=== PATIENT | female | born 1960 | race Caucasian/White ===

== ENCOUNTER 2024-11-22 11:10 | Day surgery (SDC) | payer OTHER, SELFPAY ==
--- OUTSIDE RECORDS SUMMARY | 2024-11-19 13:28 | XMS_ITS | Patient Health Record ---
Author Organization [facility] Address [address] [place] [address] Care Team Providers Care Field Scout Name Role Phone Jennifer Peraza N.P Primary Care Provider Unavail able Michael Shoemaker Unavailable [phone] ALLERGIES No Known Allergies REASON FOR REFERRAL Referring Provider First Name Jennifer Referring Provider Last Name Karmen Referred Organization [facility] Referred Provider Michael Shoemaker Referred Address [address],[place], [place],[address], Referred Provider Specialty Gastroentero logy Referral Priority Routine MEDICATIONS Medication SIG (Take, Route, Frequency, Duration) Notes Start Date End Date Status MiraLax (colon prep) 17 GM/SCOOP 1 238Gm bottle mixed with Gatorade or Crystal Light Orally begin at 5:00 p.m. the day before the procedure for 1 day 11/03/2024 Active Dulcolax (colon prep) 5 MG take at 3:00 p.m and 7:00p.m. Orally two tablets twice a day for one day for 1 day 11/03/2024 Active hydroCHLOROthiazide 25 MG 1 tablet in th e morning Orally Once a day for 30 day(s) Active Simvastatin 40 MG 1/2 tablet in the evening Orally Once a day Active Multivitamin Adult A ctive SOCIAL HISTORY Tobacco Use: Social History Observation Description Date Details (start date - stop date) Never Smoker NA - NA Sex Assigned At : Social History Observation Description Sex Assigned At Unknown Tobacco Use/Smoking Question Answer Notes Patient is a nonsmoker Alcohol Screen Question Answer Notes Did you have a drink contain ing alcohol in the past year? Yes How often did you have a dri nk containing alcohol in the past year? Never (0 point) How many drinks did you have on a typical day when you were drinking in the past year? 1 or 2 drinks (0 point) How often did you have 6 or more drinks on one occasion in the past year? Never (0 point) Points 0 Interpretation Negative PROBLEMS Problem Type ICD Code Onset Dates Problem Status W/U Status Risk SNOMED Code Notes Problem Colon cancer screening (Z12.11) Active confirmed Colon cancer screening (380301006) Problem Encounter for other preprocedural examination (Z01.818) Active confirmed Pre-procedure evaluation check (261380325) VITAL SIGNS Blood pressure diastolic 00 mm Hg 08/30/2024 Height 5 ft 7 in in 08/30/2024 Blood pressure systolic 00 mm Hg 08/30/2024 Weight 195 lbs 08/30/2024 BMI 30.54 kg/m2 08/30/2024 Encounters Encounter Location Date Provider Diagnosis [facility] [address] [place] [phone] 08/30/2024 Michael Shoemaker Colon cancer screeni ng Z12.11 and Encounter for other preprocedural examination Z01.818 [facility] [address] [place] [phone] 08/30/2024 Michael Shoemaker ASSESSMENTS Encounter Date Diagnosis Assessment Notes Treatment Notes Treatment Clinical Notes 08/30/2024 Colon cancer screening (ICD-10 - Z12.11) Do not use the Hydrochlorothiaizde the day before nor on the morning of the colonoscopy 08/30/2024 Encounter for other preprocedural examination (ICD-10 - Z01.818) PLAN OF TREATMENT Future Test Test Name Order Date COLONOSCOPY 08/30/2024 Next Appt Details Provider Name:Michael Shoemaker , 11/22/2024 01:00:00 PM, [address] [place] [address] , [place], [place], [id number], Insurance Providers Payer Name Payer Address Payer Phone Subscriber Number Group Number Insured Name Patient Relationship to Insured Coverage Start Date Coverage End Date [facility] [employer] [address] [place] [address] [id number] LEXUS DASILVA Self - patient is the insured MEDICAL (GENERAL) HISTORY Medical History History ICD Code Hypertension Negative colonoscopy in her early 50's [facility] Denies [place],DM,CVA,Lung disease,renal dise ase Hyperlipidemia Surgical History Surgery Date(Month/Year) Broken elbow
--- OUTSIDE RECORDS SUMMARY | 2024-11-19 13:28 | XMS_ITS | Encounter Summary ---
Author Name [facility] Organization [facility] Address [address] [place] [address] Care Team Providers Care Rotary Engine Assembler Name Role Phone CHELA BELL Primary Care Provider Unavailabl e Selected Encounter This section includes the information on record at [facility] for the Encounter. Date/Time Encounter Type Encounter Description Reason Provider Source Aug 14, 2024 11:21 AM FIT SPECTACLES MONOFOCAL OPTOMETRY ICD-10-CM Z46.0 Encounter for fit/adjst of spectacles and contact lenses MAGGIE SHAW Jcarlos Encounter Template Text not used by [facility] Assessments - Encounter Diagnoses This section includes the primary and secondary diagnoses documented for the Encounter. Date/Time Primary/Secondary Diagnosis Diagnosis Name Provider Source Aug 14, 2024 11:21 AM PRIMARY Encounter for fit/adjst of spectacles and contact lenses MERCEDES DIAZ [facility] Plan of Treatment: Future Appointments (+ 6 months) and Future Tests (+/- 45 days) The Plan of Treatment section includes future care activities for the patient from all [place] treatmentfacilities. This section includes future appointments and future orders which are active, pending or scheduled. Future Appointments This section includes appointments that were scheduled to occur 6 months from the date of the Encounter, up to a maximum of 20 appointments. The data comes from all [place] treatment facilities. Appointment Date/Time Appointment Type Appointme nt Facility Name Aug 30, 2024 01:15 PM AMBULATORY - NONE [facility] Oct 16, 2024 03:00 PM AMBULATORY - MEDICINE [facility] Lab Results: +/- 30 days of the encounter This section includes the Chemistry and Hematology Lab Results on record with [facility] for the patient. Radiology Reports and Pathology Reports are provided separately, in subsequent sections. Lab Results This section contains the Chemistry/Hematology Results that were resulted 30 days before or 30 daysafter the date of the Encounter. Date/Time Source Result Type Result - Unit Interpretation Reference Range Comment Jul 17, 2024 10:00 AM [facility]ION 1 RESPIRATORY Specimen Type: SERUM Comment: ! ! ! CONV! ! ! ! CONV! !Allergen Name ! kU/L !CLASS!NOTE !Allergen Name ! kU/L !CLASS!NOTE !D. pteronyssinus (d1). . . . . . . . . ! <0.10 ! 0 ! !D. pteronyssinus (d1). . . . . . . . . ! <0.10 ! 0 ! !Dermatophagoide s farinae (d2) IgE. . . ! <0.10 ! 0 ! !Dermatophagoide s farinae (d2) IgE. . . ! <0.10 ! 0 ! !Cat Dander (e1) IgE w/rfl. . . . . . . ! <0.10 ! 0 ! !Cat Dander (e1) IgE w/rfl. . . . . . . ! <0.10 ! 0 ! !Dog Dander (e5) IgE w/rfl. . . . . . . ! <0.10 ! 0 ! !Dog Dander (e5) IgE w/rfl. . . . . . . ! <0.10 ! 0 ! !Mouse Urine Proteins (e72) IgE . . . . ! <0.10 ! 0 ! !Mouse Urine Proteins (e72) IgE . . . . ! <0.10 ! 0 ! !Bermuda Grass (g2) IgE . . . . . . . . ! <0.10 ! 0 ! ![place]erm[place] Grass (g2) IgE . . . . . . . . ! <0.10 ! 0 ! !Curtis Grass (g6) IgE . . . . . . . . ! <0.10 ! 0 ! !Curtis Grass (g6) IgE . . . . . . . . ! <0.10 ! 0 ! !Cockroach (i6) IgE . . . . . . . . . . ! <0.10 ! 0 ! !Cockroach (i6) IgE . . . . . . . . . . ! <0.10 ! 0 ! !Penicillium notatum (m1) IgE . . . . . ! <0.10 ! 0 ! !Penicillium notatum (m1) IgE . . . . . ! <0.10 ! 0 ! !Cladosporium herbarum (m2) IgE . . . . ! <0.10 ! 0 ! !Cladosporium herbarum (m2) IgE . . . . ! <0.10 ! 0 ! !Aspergillus fumigatus (m3) IgE . . . . ! <0.10 ! 0 ! !Aspergillus fumigatus (m3) IgE . . . . ! <0.10 ! 0 ! !Alternaria alternata (m6) IgE. . . . . ! <0.10 ! 0 ! !Alternaria alternata (m6) IgE. . . . . ! <0.10 ! 0 ! !Maple ([place]) (t1) IgE . . . . . . ! <0.10 ! 0 ! !Maple ([place]) (t1) IgE . . . . . . ! <0.10 ! 0 ! !Birch (t3) IgE . . . . . . . . . . . . ! <0.10 ! 0 ! !Birch (t3) IgE . . . . . . . . . . . . ! <0.10 ! 0 ! !Mountain [place] (t6) IgE. . . . . . . . ! <0.10 ! 0 ! !Mountain [place] (t6) IgE. . . . . . . . ! <0.10 ! 0 ! !Filley (t7) IgE . . . . . . . . . . . . . ! <0.10 ! 0 ! !Filley (t7) IgE . . . . . . . . . . . . . ! <0.10 ! 0 ! !Elm (t8) IgE . . . . . . . . . . . . . ! <0.10 ! 0 ! !Elm (t8) IgE . . . . . . . . . . . . . ! <0.10 ! 0 ! ![place] Tree (t10) IgE. . . . . . . . . ! <0.10 ! 0 ! ![place] Tree (t10) IgE. . . . . . . . . ! <0.10 ! 0 ! ![place] (t11) IgE . . . . . . . . . . ! <0.10 ! 0 ! ![place] (t11) IgE . . . . . . . . . . ! <0.10 ! 0 ! ![place] (t14) IgE . . . . . . . . . ! <0.10 ! 0 ! ![place]ia (t14) IgE . . . . . . . . . ! <0.10 ! 0 ! !White Jer (t15) IgE. . . . . . . . . . ! <0.10 ! 0 ! ![place] Jer (t15) IgE. . . . . . . . . . ! <0.10 ! 0 ! ![place] (t70) IgE . . . . . . . ! <0.10 ! 0 ! ![place] (t70) IgE . . . . . . . ! <0.10 ! 0 ! !Common Ragweed (Short) (w1) IgE. . . . ! <0.10 ! 0 ! !Common Ragweed (Short) (w1) IgE. . . . ! <0.10 ! 0 ! !Mugwort (w6) IgE . . . . . . . . . . . ! <0.10 ! 0 ! !Mugwort (w6) IgE . . . . . . . . . . . ! <0.10 ! 0 ! !Rough Pigweed (w14) IgE. . . . . . . . ! <0.10 ! 0 ! !Rough Pigweed (w14) IgE. . . . . . . . ! <0.10 ! 0 ! ![place]ep [place] (w18) IgE . . . . . . . . ! <0.10 ! 0 ! !Sheep [place] (w18) IgE . . . . . . . . ! <0.10 ! 0 ! IMMUNOGLOBULIN E 4 kU/L <=114 IMMUNOGLOBULIN E 4 kU/L <=114 INTERPRETATION INTERPRETATION SPECIFIC LEVEL OF ALLERGEN SPECIFIC LEVEL OF ALLERGEN IgE CLASS kU/L SPECIFIC IgE ANTIBODY IgE CLASS kU/L SPECIFIC IgE ANTIBODY --------- --------- ----- --------- --------- ----- 0 <0.10 Absent/Undetecta ble 0 <0.10 Absent/Undetecta ble 0/1 0.10-0.34 Very Low Level 0/1 0.10-0.34 Very Low Level 1 0.35-0.69 Low Level 1 0.35-0.69 Low Level 2 0.70-3.49 Moderate Level 2 0.70-3.49 Moderate Level 3 3.50-17.4 High Level 3 3.50-17.4 High Level 4 17.5-49.9 Very High Level 4 17.5-49.9 Very High Level 5 50-100 Very High Level 5 50-100 Very High Level 6 >100 Very High Level 6 >100 Very High Level The clinical relevance of allergen results of The clinical relevance of allergen results of 0.10-0.34 kU/L are undetermined and intended for 0.10-0.34 kU/L are undetermined and intended for specialist use. specialist use. Allergens denoted with a include results using Allergens denoted with a include results using one or more analyte specific reagents. In those one or more analyte specific reagents. In those cases, the test was developed and its analytical cases, the test was developed and its analytical performance characteristics have been determined performance characteristics have been determined by [facility]. It has not been cleared or by [facility]. It has not been cleared or approved by the U.S. Food and Drug Administration. approved by the U.S. Food and Drug Administration. The FDA has determined that such clearance or The FDA has determined that such clearance or approval is not necessary. This assay has been approval is not necessary. This assay has been validated pursuant to the CLIA regulations and is validated pursuant to the CLIA regulations and is used for clinical purposes. used for clinical purposes. Test Performed by [facility], Test Performed by [facility], [facility], [facility], [address] [place] [address] [place] [address] Moncho Singh M.D., Ph.D., Director of Laboratories Moncho Singh M.D., Ph.D., Director of Laboratories , CLIA [id number] , CLIA [id number] TEST PERFORMED AT: TEST PERFORMED AT: , , Ordering Provider: JESSICA GOLDSTEIN Report Released Date/Time: Jul 17, 2024 09:47 AM Reporting Lab: [facility] [address] [address] Performing Lab: [facility] [place] [facility] [address] [facility], [address] [facility] [address] IgE, Serum SEE NOTE Social History: Smoking Status (Most current) and Tobacco Use (All prior to encounter date) This section includes the most current, and the historical, smoking and tobacco- related health factors from the [facility] facility where the Encounter took place. Current Smoking Status This section includes the most current smoking, or tobacco-related health factor, from the [facility] facility where the Encounter took place. Date/Time Current Smoking Status Comment Facil ity Nov 23, 2023 12:07 PM VA-TOBACCO FORMER USER [facility] [place] [facility] Tobacco Use History This section includes a history of the smoking, or tobacco-related health factors, that were collected on or before the date of the Encounter. The data comes from the [place] facility where the Encounter took place. Date/Time Smoking Status/Tobacco Use Comment F acility Nov 23, 2023 12:07 PM VA-TOBACCO QUIT 15 YRS OR MORE [facility] [place] [facility] Jul 13, 2022 10:30 AM VA-TOBACCO NEVER USED [facility] [place] [facility] Jun 09, 2021 11:00 AM VA-TOBACCO NEVER USED [facility] [place] [facility] Feb 20, 2020 03:16 PM VA-TOBACCO NEVER USED [facility] [place] [facility] Feb 11, 2019 10:08 AM VA-TOBACCO NEVER USED [facility] [place] [facility] March 07, 2018 09:17 AM LIFETIME NON-TOBACCO USER [facility] [place] [facility] Jun 01, 2016 10:04 AM LIFETIME NON-TOBACCO USER [facility] [place] [facility] Jun 12, 2012 10:28 AM LIFETIME NON-TOBACCO USER [facility] [place] [facility] Encounter Notes: All associated encounter notes This section contains the clinical notes associated to the Encounter. 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 Please verify prior to the creation of a purchase order. LEXUS DASILVA [id number] RX INFORMATION OD -2.75 0.00 X Add:0.00 Pzm:0.00 Dir: Prz2:0.00 Dir2: OS -3.25 -0.25 X160 Add:0.00 Pzm:0.00 Dir: Prz2:0.00 Dir2: FITTING INFORMATION FPD:60 NPD:57 Mccracken:R: L: SEG HT:R: L: Tint:None Shade:None [facility] Billable Items FRAME: SOTERO BRANTLEYMETAL 50-20-145 Right Lens: POLY SINGLE VISION 1.586 POLY Left Lens: POLY SINGLE VISION 1.586 POLY CLIN items 0001 - Single Vision - Glass Plastic Poly /sundeep/ BHARGAVI ANTONIO Grain Merchandiser Signed: 08/14/2024 11:27 Receipt Acknowledged By: 08/14/2024 11:31 /sundeep/ Mercedes Diaz [facility] Health Lab Technician 08/14/2024 ADDENDUM STATUS: COMPLETED PDS Grain Merchandiser fit patient with 1 pair(s) of sv eyeglasses on 08/14/2024. OPT HT entered consult(s) as requested for provider signature. /sundeep/ Mercedes Diaz [facility] Health Lab Technician Signed: 08/14/2024 11:32 BHARGAVI ANTONIO [facility]
--- OUTSIDE RECORDS SUMMARY | 2024-11-19 13:28 | XMS_ITS | Encounter Summary ---
Author Name [facility] [facility] [place] Address [address] [place] [address] Care Team Providers Care Supervisor Calibration Name Role Phone CHELA BELL Primary Care Provider Unavailabl e Selected Encounter This section includes the information on record at [place] for the Encounter. Date/Time Encounter Type Encounter Description Reason Provider Source Aug 14, 2024 10:00 AM OFFICE O/P EST MOD 30 MIN OPTOMETRY ICD-10-CM H25.13 Age-related nuclear cataract, bilateral VALERIAMAGGIE TORREZ Jcarlos Encounter Template Text not used by [place] Assessments - Encounter Diagnoses This section includes the primary and secondary diagnoses documented for the Encounter. Date/Time Primary/Secondary Diagnosis Diagnosis Name Provider Source Aug 15, 2024 10:26 AM PRIMARY Age-related nuclear cataract, bilateral [facility] Aug 15, 2024 10:26 AM SECONDARY Dry eye syndrome of bilateral lacrimal glands COUNTS INCLUDE 234 BEDS AT [facility] Aug 15, 2024 10:26 AM SECONDARY Presbyopia COUNTS INCLUDE 234 BEDS AT [facility] Aug 15, 2024 10:26 AM SECONDARY Unspecified visual disturbance COUNTS INCLUDE 234 BEDS AT [facility] Plan of Treatment: Future Appointments (+ 6 months) and Future Tests (+/- 45 days) The Plan of Treatment section includes future care activities for the patient from all [facility] treatment[facility]. This section includes future appointments and future orders which are active, pending or scheduled. Future Appointments This section includes appointments that were scheduled to occur 6 months from the date of the Encounter, up to a maximum of 20 appointments. The data comes from all [place] treatment facilities. Appointment Date/Time Appointment Type Appointme nt Facility Name Aug 30, 2024 01:15 PM AMBULATORY - NONE [place] [facility] Oct 16, 2024 03:00 PM [facility] [facility] Lab Results: +/- 30 days of the encounter This section includes the Chemistry and Hematology Lab Results on record with [place] for the patient. Radiology Reports and Pathology Reports are provided separately, in subsequent sections. Lab Results This section contains the Chemistry/Hematology Results that were resulted 30 days before or 30 daysafter the date of the Encounter. Date/Time Source Result Type Result - Unit Interpretation Reference Range Comment Jul 17, 2024 10:00 [facility] ALLERGY PROFILE, REGION 1 RESPIRATORY [...] . ! <0.10 ! 0 ! !Maple ([place]) (t1) IgE . . . . . . ! <0.10 ! 0 ! !Maple [place] (t1) IgE . . . . . . ! <0.10 ! 0 ! !Birch (t3) IgE . . . . . . . . . . . . ! <0.10 ! 0 ! !Birch (t3) IgE . . . . . . . . . . . . ! <0.10 ! 0 ! ![place]ountain [place] (t6) IgE. . . . . . . . ! <0.10 ! 0 ! ![place] (t6) IgE. . . . . . . . ! <0.10 ! 0 ! ![place] (t7) IgE . . . . . . . . . . . . . ! <0.10 ! 0 ! ![place] (t7) IgE . . . . . . . . . . . . . ! <0.10 ! 0 ! !Elm (t8) IgE . . . . . . . . . . . . . ! <0.10 ! 0 ! !Elm (t8) IgE . . . . . . . . . . . . . ! <0.10 ! 0 ! ![place] (t10) IgE. . . . . . . . . ! <0.10 ! 0 ! ![place] (t10) IgE. . . . . . . . . ! <0.10 ! 0 ! ![place] (t11) IgE . . . . . . . . . . ! <0.10 ! 0 ! ![place] (t11) IgE . . . . . . . . . . ! <0.10 ! 0 ! ![place] (t14) IgE . . . . . . . . . ! <0.10 ! 0 ! ![place] (t14) IgE . . . . . . . . . ! <0.10 ! 0 ! ![place] (t15) IgE. . . . . . . . . . ! <0.10 ! 0 ! ![place] (t15) IgE. . . . . . . . . . ! <0.10 ! 0 ! ![place] (t70) IgE . . . . . . . ! <0.10 ! 0 ! ![place] (t70) IgE . . . . . [...] . ! <0.10 ! 0 ! !Sheep [employer] (w18) IgE . . . . . . . . ! <0.10 ! 0 ! !Sheep [employer] (w18) IgE . . . . . [...] determined performance characteristics have been determined by [facility]. It has not been cleared or by [facility]. It has not been cleared or approved [...] used for clinical purposes. Test Performed by [facility], Test Performed by [facility], [place], [place], [address] [place] [address] [place], [place] Moncho Singh M.D., Ph.D., Director of Laboratories Moncho Singh M.D., Ph.D., Director of Laboratories , CLIA [id number] , CLIA [id number] TEST PERFORMED AT: TEST PERFORMED AT: , , Ordering Provider: JESSICA GOLDSTEIN Report Released Date/Time: Jul 17, 2024 09:47 AM Reporting Lab: [facility] [address] [facility] [id number] Performing Lab: [facility] [address] [address] IgE, Serum SEE NOTE Encounter Notes: All associated encounter notes This section contains the clinical notes associated to the Encounter. Date/Time Encounter Note(s) Provider Source Aug 14, 2024 09:33 AM OPTOMETRY NOTE: LOCAL TITLE: OPTOMETRY NOTE STANDARD TITLE: OPTOMETRY NOTE DATE OF NOTE: AUG 14, 2024@09:33 ENTRY DATE: AUG 14, 2024@09:33:48 AUTHOR: BELTRAN MESA COSIGNER: MAGGIE SHAW URGENCY: STATUS: COMPLETED OPTOMETRY NOTE Has ADDENDA Active problems - Computerized Problem List is the source for the followin. Rhinitis 2. Hypertension 3. Obesity 4. Hyperlipidemia 5. Bereavement Active Outpatient Medications (including Supplies): Active Outpatient Medications Status 1) FLUTICASONE PROP 50MCG 120D NASAL INHL INSTILL 2 ACTIVE SPRAYS INTO EACH NOSTRIL ONCE DAILY FOR NASAL IRRITATION/INFLAMMATION 2) HYDROCHLOROTHIAZIDE 25MG TAB TAKE ONE TABLET BY MOUTH ACTIVE ONCE DAILY TO PREVENT FLUID/CONTROL BLOOD PRESSURE 3) LORATADINE 10MG TAB TAKE ONE TABLET BY MOUTH ONCE ACTIVE DAILY FOR ALLERGY FOR ALLERGY 4) OMEPRAZOLE 20MG EC CAP TAKE ONE CAPSULE BY MOUTH ACTIVE EVERY MORNING 30 MINUTES BEFORE BREAKFAST FOR GASTROESOPHAGEAL REFLUX DISEASE 5) SIMVASTATIN 40MG TAB TAKE ONE-HALF TABLET BY MOUTH AT ACTIVE BEDTIME FOR CHOLESTEROL Active Non-VA Medications Status 1) Non-VA MULTIVITAMIN/MINERALS CAP/TAB 1 TABLET BY ACTIVE MOUTH ONCE DAILY 6 Total Medications Allergies: Patient has answered NKA All medications including those prescribed by outside VA's, community providers, and all OTC meds were reviewed and reconciled with patient to the best of their abilities. +++++++++++++++++++++++++++++ ++++++++++++++++ Med list review: Y Discrepancies: N List provided pt: N +++++++++++++++++++++++++++++ ++++++++++++++++ ------ Discussed with patient that the examination would be performed by an Optometry graphotype operator in his/her final year. Explained that the exam would be overseen by a fully credentialled and licensed dry chain offbearer. (x) Pt expressed understanding and agreed to proceed () Pt declined to be examined by graphotype operator (AC) ------ This 64 year old FEMALE is seen today for CEE Chief Complaint: Lost glasses a few months ago. Is currently wearing older pair of glasses. No other complaints. Ocular Hx: LISANDRO: Aug 2021 1. Hx of migraine with aura 2. Myopia/Presbyopia OU 3. Mild nuclear sclerotic cataracts Ou - Previous Surgery: none - (-) Pain - (-) Diplopia - (-) Flashes - (+) Floaters, longstanding - (-) Eye Injury/Trauma - FOHx: (-) Glaucoma/ARMD/Blindness Ocular Meds: None Medical, personal, and social history are all reviewed and is contributory or is not contributory to today's visit. Vision cc: OD:20/25+1 OS:20/20 Pupils: ERRL-No APD EOMS: Full, no restrictions CVF: FTFC OU Habitual: OD: -2.75 SPH OS: -3.25 -0.25 x 160 Add: +2.25 Subjective OD: -2.75 SPH 20/25+1 OS: -3.25 -0.25 x 160 20/20 Add: +2.25 20/20 OU Intraocular Pressure TYPE GAT, Time: 10:27am OD: 17mmHg OS: 17mmHg Ant segment: Lids: Tr MGD OU Conj: White/quiet OU Cornea: Clear OU AC: Open and quiet OU, 1:1 N&T OU Iris: Flat OU Lens: 1+ NS OU Fundus exam: Dilated: with 1% Tropicamide OU-warning given C/D: OD 0.35r pink & healthy OS 0.40r pink & healthy Macula: Flat and clear OU Vessels: Normal Caliber OU Vit: Syneresis OU, PVD OD Periph: Flat and clear OU Additional Testing: OCT Macula completed to assess diagnosis: Unspecified visual disturbance OD. Findings as follows: OD: Beronica thickness: 244, Volume: 10.4 Thickness Avg 288. Quality: 9/10 Normal foveal contour with intact PIL, few hard drusen, (-) SRF OS: [place] thickness: 263, Volume: 9.9 Thickness Avg 276. Quality: 10/10 Normal foveal contour with intact PIL, few hard drusen, (-) SRF REPORT: Good quality scan, stable to baseline in 2017. Monitor yearly. Assessment and Plan: 1. Hx of migraine with aura - Pt ed - Pt states has not had ocular migraine in years - Not currently followed by neuro - Monitor 2. Mild nuclear sclerotic cataracts OU - Pt ed - Not visually significant at this time, symmetrical between each eye - Monitor 3. Dry eye syndrome OU - BCVA 20/25 OD, 20/20 OS - Asymptomatic - Could be causing decreased vision OD - Discussed AT, deferred treatment today and stated she would not use the drops if mailed to her - Advised pt to RTC sooner if she notices decreased vision OD - Monitor yearly 4. Unspecified visual disturbance OD - Mild decreased vision, 20/25 - Patient had not noticed reduction in vision OD - Cataracts and dry eye signs symmetrical between eyes - Mac OCT: Normal foveal contour, (-) SRF - Most likely due to dryness, monitor yearly or sooner if vision decreases further 5. Myopia/Presbyopia OU - Pt ed - Minor change, ordered new DVO - Monitor Return to Clinic: 1 year for CEE *Pt advised to contact clinic or return sooner for changes as needed. Total time spent: 32 minutes Education: The exam findings and plan were explained to the patient and the patient agrees. The patient's questions have been answered. *> Discussed signs of retinal detachment. Reviewed with patient the signs and symptoms of a retinal detachment such as appearance of flashes of light in the periphery of one eye or the other, a sudden increase or change in floaters and a curtain affect or absence of vision that appears to cover or progress over the side, superior or inferior visual field of one eye or the other. Patient advised to the office immediately if any of these symptoms are noticed as they can signify a serious retinal problem that needs prompt treatment to prevent vision loss or blindness. *> Discussed cataract. A cataract is a cloudiness in the normally clear lens of the eye which can interfere with normal vision. Most cataracts develop in people over age 55, but they occasionally occur in infants and young children. Usually cataracts develop in both eyes, but one may be worse than the other. If the lens is clouded by a cataract, light is scattered so the light can no longer focus it properly, causing vision problems. Symptoms of a cataract may include: Blurred or hazy vision, Increased sensitivity to glare from lights, particularly when driving at night and Increased difficulty seeing at night. There is no treatment to prevent or slow cataract progression. In age-related cataracts, changes in vision can be very gradual. Some people may not initially recognize the visual changes. However, as cataracts worsen, vision symptoms increase. > Discussed dry eye or ocular surface disease. Dry eye is a disease, an ocular surface disease and is a medical condition. Ocular surface disease is a snf chronic disorder that if left untreated can only worsen, and cannot be cured, only managed. The disease may be caused by either a low functional lacrimal gland, lack of tears, or due to a chronic inflammation of the ocular surface. Treatment of dry eye involves determining which or both may the underlying cause. Therapy is ongoing and compliance is cade. Individual treatment steps recommended by your doctor may include regular use of artificial tears, nutritional supplements, lid hygiene, punctal plugs, oral medications such as doxycycline and prescription topical drops such as Restasis. A treatment plan is individually tailored for every patient by the doctor and compliance and regular follow up is cade. Barriers to Education: None. Patient is alert and oriented x 3. /sundeep/ MAGGIE SHAW OD ANIMAL RESCUER Signed: 08/14/2024 21:37 for BELTRAN MESA OPTOMETRY STUDENT /sundeep/ MAGGIE SHAW OD ANIMAL RESCUER Cosigned: 08/14/2024 21:37 08/14/2024 ADDENDUM STATUS: COMPLETED I saw this patient in conjunction with the student and agree to the stated findings and plan after reviewing both the history and repeating cade elements of the physical exam. /sundeep/ MAGGIE SHAW OD ANIMAL RESCUER Signed: 08/14/2024 21:37 MAGGIE SHAW [facility]
--- OUTSIDE RECORDS SUMMARY | 2024-11-19 13:28 | XMS_ITS | Encounter Summary ---
Author Name [facility] [place] Address [address] [place] [address] Care Team Providers Care Credit Collections Manager Name Role Phone CHELA BELL Primary Care Provider Unavailabl e Selected Encounter This section includes the information on record at [place] for the Encounter. Date/Time Encounter Type Encounter Description Reason Provider Source Aug 14, 2024 11:00 AM CPTR OPHTH DX IMG POST SEGMT OPTOMETRY ICD-10-CM H53.9 Unspecified visual disturbance MAGGIE SHAW Jcarlos Encounter Template Text not used by [place] Assessments - Encounter Diagnoses This section includes the primary and secondary diagnoses documented for the Encounter. Date/Time Primary/Secondary Diagnosis Diagnosis Name Provider Source Aug 29, 2024 03:09 PM PRIMARY Unspecified visual disturbance MAGGIE SHAW [facility] Plan of Treatment: Future Appointments (+ 6 months) and Future Tests (+/- 45 days) The Plan of Treatment section includes future care activities for the patient from all [place] treatmentfacilities. This section includes future appointments and future orders which are active, pending or scheduled. Future Appointments This section includes appointments that were scheduled to occur 6 months from the date of the Encounter, up to a maximum of 20 appointments. The data comes from all [place] treatment facilities. Appointment Date/Time Appointment Type Appointme nt Facility Name Aug 30, 2024 01:15 PM AMBULATORY - NONE [place] [facility] [place] [facility] Oct 16, 2024 03:00 PM AMBULATORY - MEDICINE CT C NTRL WSN [facility] Lab Results: +/- 30 days of [...] Range Comment Jul 17, 2024 10:[address] CNT WSTRN [facility] ALLERGY PROFILE, REGION 1 RESPIRATORY Specimen [...] . ! <0.10 ! 0 ! !Maple ([place]) (t1) IgE . . . . . . ! <0.10 ! 0 ! !Maple ([place]) (t1) IgE . . . . . . ! <0.10 ! 0 ! !Birch (t3) IgE . . . . . . . . . . . . ! <0.10 ! 0 ! !Birch (t3) IgE . . . . . . . . . . . . ! <0.10 ! 0 ! ![place] (t6) IgE. . . . . . . . ! <0.10 ! 0 ! ![place] (t6) IgE. . . . . . . . ! <0.10 ! 0 ! ![place] (t7) IgE . . . . . . . . . . . . . ! <0.10 ! 0 ! ![place] (t7) IgE . . . . . . . . . . . . . ! <0.10 ! 0 ! !Elm (t8) IgE . . . . . . . . . . . . . ! <0.10 ! 0 ! ![place]m (t8) IgE . . . . . . . . . . . . . ! <0.10 ! 0 ! ![place] (t10) IgE. . . . . . . . . ! <0.10 ! 0 ! ![place] (t10) IgE. . . . . . . . . ! <0.10 ! 0 ! ![place] (t11) IgE . . . . . . . . . . ! <0.10 ! 0 ! ![place] (t11) IgE . . . . . . . . . . ! <0.10 ! 0 ! ![place] (t14) IgE . . . . . . . . . ! <0.10 ! 0 ! ![place] (t14) IgE . . . . . . . . . ! <0.10 ! 0 ! ![place] (t15) IgE. . . . . . . . . . ! <0.10 ! 0 ! ![place] (t15) IgE. . . . . . . . . . ! <0.10 ! 0 ! ![place] (t70) IgE . . . . . . . ! <0.10 ! 0 ! ![place] (t70) IgE . . . . . [...] . ! <0.10 ! 0 ! ![place]ep [place] (w18) IgE . . . . . . . . ! <0.10 ! 0 ! ![place]ep [place] (w18) IgE . . . . . [...] determined performance characteristics have been determined by [employer]. It has not been cleared or by [employer]. It has not been cleared or approved [...] used for clinical purposes. Test Performed by [facility], Test Performed by [facility], [employer] [facility], [employer] [facility], [address] [place] [address] [place] [address] Moncho Singh M.D., Ph.D., Director of Laboratories Moncho Singh M.D., Ph.D., Director of Laboratories , CLIA [id number] , CLIA [id number] TEST PERFORMED AT: TEST PERFORMED AT: , , Ordering Provider: JESSICA GOLDSTEIN Report Released Date/Time: Jul 17, 2024 09:47 AM Reporting Lab: [facility] [address] [facility] [id number] Performing Lab: [address] [place] [address] IgE, Serum SEE NOTE Encounter Notes: All associated encounter notes This section contains the clinical notes associated to the Encounter. Date/Time Encounter Note(s) Provider Source Aug 14, 2024 02:57 PM OPTOMETRY CONSULT: LOCAL TITLE: CONSULT REPORT/OPTOMETRY OCT STANDARD TITLE: OPTOMETRY CONSULT DATE OF NOTE: AUG 14, 2024@14:57 ENTRY DATE: AUG 14, 2024@14:57:12 AUTHOR: MAGGIE SHAW EXP COSIGNER: URGENCY: STATUS: COMPLETED ------- OCT Macula completed to assess diagnosis: Unspecified [...] stable to baseline in 2017. Monitor yearly. ------- /jose SHAW OD ELECTRICAL CONTACTS ADJUSTER Signed: 08/14/2024 21:38 MAGGIE SHAW [facility]
--- OUTSIDE RECORDS SUMMARY | 2024-11-19 13:28 | XMS_ITS | Continuity of Care Document ---
Author Name [facility] Organization [facility] Care Team Providers Care Linux System Administrator Name Role Phone [facility] Unavailable Unavailable Problems Combined list of problems from Department of Defense and Veterans Affairs facilities. It does not include entries that were removed or entered in error. Problem Status Onset Date Problem Type Date of Resolution Comments Source Bereavement Active Condition Dec 24, 2013 Entered By: MELANIE NG Comment: December 2013 [facility] EIC - Epidermal inclusion cyst Active [facility] Hyperlipidemia Active Condition [facility] [place] Hypertension Active Condition [facility] Obesity Active Condition [facility] Rhinitis Active Condition [facility] [place] [facility] Chronic pelvic pain of female (SNOMED CT 424609320) Inactive Condition 03/27/2019 [facility] Fibroids, Uterine (ICD-9-CM 218.9) Inactive Condition 03/27/2019 [facility] OVARIAN Inactive Condition 03/27/2019 Jun 12, 2012 Entered By: MELANIE NG Comment: ovarian mass, left [facility] Overweight (SNOMED CT 693903245) Inactive Condition 03/27/2019 [facility] [place] [facility] Diagnosis: ICD-10-CM J30.89 Other allergic rhinitis Active Diagnosis [facility] Diagnosis: ICD-10-CM Z46.0 Encounter for fit/adjst of spectacles and contact lenses Active Diagnosis [facility] [place] Diagnosis: ICD-10-CM H53.9 Unspecified visual disturbance Active Diagnosis [facility] Diagnosis: ICD-10-CM H25.13 Age-related nuclear cataract, bilateral Active Diagnosis [facility] Diagnosis: ICD-10-CM J30.9 Allergic rhinitis, unspecified Active Diagnosis [facility] [place] [facility] Diagnosis: ICD-10-CM I10 Essential (primary) hypertension Active Diagnosis [facility] Diagnosis: ICD-10-CM Z04.9 Encounter for examination and observation for unsp reason Active Diagnosis [facility] [place] [facility] Diagnosis: ICD-10-CM Z71.9 Counseling, unspecified Active Diagnosis [facility] Diagnosis: ICD-10-CM J06.9 Acute upper respiratory infection, unspecified Active Diagnosis [facility] Medications Combined list of outpatient medications from Department of Defense and Veterans Affairs facilities.Medications provided include 1) outpatient medications from the last 15 months, and 2) patient-reported medications. Medication Details Route Status Patient Instructions Prescription Expires Prescription Number Last Dispense Date Ordering Provider Order Date Order Qty Source AMOXICILLIN TRIHYDRATE 500MG CAP TAKE ONE CAPSULE BY MOUTH THREE TIMES A DAY FOR INFECTIO N CAUSED BY BACTERIA ORAL DISCONT INUED BY PROVIDE R 12/23/2023 [id number] CHELA BELL 2023 21 [facility] BISACODYL 5MG TAB,EC TAKE TWO TABLETS BY MOUTH TWICE DAILY AT 3PM AND 7PM ORAL ACTIVE 12/04/2024 [id number] [place] ACOSTA ERT 2023 4 [facility] BISACODYL 5MG TAB,EC TAKE FOUR TABLETS BY MOUTH ONE TIME FOR BOWELS - LAXATIVE ORAL DISCONT INUED (EDIT) 12/03/2024 [id number] GA ACOSTA ERT 2023 4 [facility] FLUTICASONE PROPIONATE 50MCG/SPRAY SOLN,NASAL, 16GM INSTILL 2 SPRAYS INTO EACH NOSTRIL ONCE DAILY FOR NASAL IRRITATI ON/INFLA MMATION NASAL ACTIVE 06/12/2025 [id number] 4 CHELA BELL 2023 1 [facility] [place] FLUTICASONE PROPIONATE 50MCG/SPRAY SOLN,NASAL, 16GM INSTILL 2 SPRAYS INTO EACH NOSTRIL ONCE DAILY FOR NASAL IRRITATI ON/INFLA MMATION NASAL DISCONT INUED 11/15/2024 [id number] 4 ARABELLA, CHELA OLIVIA 2023 1 [facility] [place] HYDROCHLORO THIAZIDE 25MG TAB TAKE ONE TABLET BY MOUTH ONCE DAILY TO PREVENT FLUID/CO NTROL BLOOD PRESSURE ORAL ACTIVE 03/28/2025 [id number] 4 ARABELLA, CHELA OLIVIA 2023 90 [facility] [place] HYDROCHLORO THIAZIDE 25MG TAB TAKE ONE TABLET BY MOUTH ONCE DAILY TO PREVENT FLUID/CO NTROL BLOOD PRESSURE ORAL DISCONT INUED 04/04/2024 [id number] 4 ARABELLA, CHELA OLIVIA 2022 90 [facility] [place] LORATADINE 10MG TAB TAKE ONE TABLET BY MOUTH ONCE DAILY FOR ALLERGY FOR ALLERGY ORAL ACTIVE 06/12/2025 [id number] 4 ARABELLA, CHELA OLIVIA 2023 90 [facility] [place] [facility] [facility] MECLIZINE HCL 25MG TAB TAKE ONE TABLET BY MOUTH THREE TIMES DAILY NEEDED FOR DIZZINES S ORAL 07/11/2024 [id number] 4 ARABELLA, CHELA OLIVIA 2023 60 [facility] [place] [facility] MULTIVITAMI NS W/MINERALS TAB TAKE ONE TABLET BY MOUTH ONCE DAILY ORAL ACTIVE [place] 2020 [facility] [place] OMEPRAZOLE 20MG CAP,EC TAKE ONE CAPSULE BY MOUTH EVERY MORNING 30 MINUTES BEFORE BREAKFAS T FOR GASTROES OPHAGEAL REFLUX DISEASE ORAL ACTIVE 06/12/2025 [id number] 4 ARABELLA, CHELA OLIVIA 2023 30 [facility] [place] [facility] POLYETHYLEN E GLYCOL 3350 PWDR,ORAL TAKE ENTIRE CONTENTS OF 238GM BOTTLE BY MOUTH ONE TIME (MIX WITH CLEAR LIQUID AND DRINK INSTRUCT ED BY GI PROVIDER ) ORAL ACTIVE 12/03/2024 [id number] 4 ACOSTA,GA ERT 2023 238 [facility] [place] [facility] SIMVASTATIN 40MG TAB TAKE ONE-HALF TABLET BY MOUTH AT BEDTIME FOR CHOLESTE ROL ORAL ACTIVE 03/28/2025 [id number] 4 ARABELLA, CHELA OLIVIA 2023 45 [facility] [place] [facility] SIMVASTATIN 40MG TAB TAKE ONE-HALF TABLET BY MOUTH AT BEDTIME FOR CHOLESTE ROL ORAL DISCONT INUED 04/04/2024 [id number] 4 ARABELLA, CHELA OLIVIA 2022 45 [facility] [place] [facility] Immunizations Combined list of available immunizations from the Department of Defense and Veterans Affairs facilities. Immunization Series Date Given Administered By Site Reaction Lot Number CVX Code Drug Bolting Machine Operator Status Comments Source DTAP, UNSPECIFIED FORMULATION 2014 107 complet ed Site: Left Deltoid [facility] [place] [facility] Results Combined list of recent chemistry, hematology and other laboratory results from Department of Defense and Veterans Affairs, ranging from 15 months to all on record, depending upon the facility. Order Name Results Value Reference Range Date Interpretation Specimen Comments Source ALLERGY PROFILE, REGION 1 RESPIRATO RY IGE [UNITS/VOLU ME] IN SERUM OR PLASMA SEE NOTE 07/17 Specimen Type: SERUM Comment: ----- ----- ! ! ! CONV! ! ! ! CONV! !Allergen Name ! kU/L !CLASS!NOTE !Allergen Name ! kU/L !CLASS!NOTE ----- ----- !D. pteronyssin us (d1). . . . . . . . . ! <0.10 ! 0 ! !D. pteronyssin us (d1). . . . . . . . . ! <0.10 ! 0 ! !Dermatopha goides farinae (d2) IgE. . . ! <0.10 ! 0 ! !Dermatopha goides farinae (d2) IgE. . . ! <0.10 [...] . . . . . . ! <0.1 0 ! 0 ! !B[place] Grass (g2) IgE [...] . . ! <0.10 ! 0 ! !Penicilliu m notatum (m1) IgE . . . . . ! <0.10 ! 0 ! !Penicilliu m notatum (m1) IgE . . . . . ! <0.10 ! 0 ! !Cladospori um herbarum (m2) IgE . . . . ! <0.10 ! 0 ! !Cladospori um herbarum (m2) IgE . . . . ! <0.10 ! 0 ! !Aspergillu s fumigatus (m3) IgE . . . . ! <0.10 ! 0 ! !Aspergillu s fumigatus (m3) IgE . . . . ! <0.10 ! 0 ! !Alternaria alternata (m6) IgE. . . . . ! <0.10 ! 0 ! !Alternaria alternata (m6) IgE. . . . . ! <0.10 ! 0 ! !Maple ([place]) (t1) IgE . . . . . . ! <0.10 ! 0 ! !Maple ([place]) (t1) IgE . . . . . . ! <0.10 ! 0 ! !Birch (t3) IgE . . . . . . . . . . . . ! <0.10 ! 0 ! !Birch (t3) IgE . . . . . . . . . . . . ! <0.10 ! 0 ! ![place] (t6) IgE. . . . . . . . ! <0.10 ! 0 ! ![place] (t6) IgE. . . . . . . . ! <0.10 ! 0 ! ![place] (t7) IgE . . . . . . . . . . . . . ! <0.10 ! 0 ! ![place] (t7) IgE . . . . . . . . . . . . . ! <0.10 ! 0 ! !Elm (t8) IgE . . . . . . . . . . . . . ! <0.10 ! 0 ! !Elm (t8) IgE . . . . . . . . . . . . . ! <0.10 ! 0 ! ![place] (t10) IgE. . . . . . . . . ! <0.10 ! 0 ! ![place] (t10) IgE. . . . . . . . . ! <0.10 ! 0 ! ![place] (t11) IgE . . . . . . . . . . ! <0.10 ! 0 ! ![place] (t11) IgE . . . . . . . . . . ! <0.10 ! 0 ! ![place] (t14) IgE . . . . . . . . . ! <0.10 ! 0 ! ![place] (t14) IgE . . . . . . . . . ! <0.10 ! 0 ! ![place] (t15) IgE. . . . . . . . . . ! <0.10 ! 0 ! ![place] (t15) IgE. . . . . . . . . . ! <0.10 ! 0 ! ![place] (t70) IgE . . . . . . . ! <0.10 ! 0 ! ![place] (t70) IgE . . . . . [...] . ! <0.10 ! 0 ! ![place] (w18) IgE . . . . . . . . ! <0.10 ! 0 ! ![place] (w18) IgE . . . . . . . . ! <0.10 ! 0 ! ----- ----- IMMUNOGLOBU KARRI E 4 kU/L <=114 IMMUNOGLOBU KARRI E 4 kU/L <=114 INTERPRETAT ION INTERPRETAT ION SPECIFIC LEVEL OF ALLERGEN SPECIFIC LEVEL OF ALLERGEN IgE CLASS kU/L SPECIFIC IgE ANTIBODY IgE CLASS kU/L SPECIFIC IgE ANTIBODY --------- --------- --------- --------- 0 <0.10 Absent/Unde tectable 0 <0.10 Absent/Unde tectable 0/1 0.10-0.34 Very Low Level 0/1 0.10-0.34 [...] of allergen results of 0.10-0.34 kU/L are undetermine d and intended for 0.10-0.34 kU/L are undetermine d and intended for specialist use. specialist use. Allergens denoted with a include results using Allergens denoted with a include results using one or more analyte specific reagents. In those one or more analyte specific reagents. In those cases, the test was developed and its analytical cases, the test was developed and its analytical performance characteris tics have been determined performance characteris tics have been determined by [employer] . It has not been cleared or by [employer] . It has not been cleared or approved by the U.S. Food and Drug Administrat ion. approved by the U.S. Food and Drug Administrat ion. The FDA has determined that such clearance or The FDA has determined that such clearance or approval is not necessary. This assay has been approval is not necessary. This assay has been validated pursuant to the CLIA regulations and is validated pursuant to the CLIA regulations and is used for clinical purposes. used for clinical purposes. Test Performed by [employer], Test Performed by [employer], [employer], [facility], [address] [place] [address] [place] [address] Moncho Singh M.D., Ph.D., Director of Laboratorie s Moncho Singh M.D., Ph.D., Director of Laboratorie s , CLIA [id number] , CLIA [id number] TEST PERFORMED AT: TEST PERFORMED AT: , , Ordering Provider: AUSTIN GOLDSTEIN Report Released Date/Time: Jul 17, 2024 09:47 AM Reporting Lab: [address] [address] Performing Lab: [facility] [id number] [place] [address] BASIC METABOLIC PANEL (non-fast ing) UREA NITROGEN [MASS/VOLUM E] IN SERUM OR PLASMA 18 mg/dL 7 - 25 04/09 Specimen Type: SERUM No comment entered. Ordering Provider: HARPREET BELL SA Report Released Date/Time: Apr 09, 2024 11:38 AM Reporting Lab: [address] [address] Performing Lab: [address] [address] [facility] BASIC METABOLIC PANEL (non-fast ing) GLUCOSE [MASS/VOLUM E] IN SERUM OR PLASMA 91 mg/dL 65 - 100 04/09 Specimen Type: SERUM No comment entered. Ordering Provider: HARPREET BELL SA Report Released Date/Time: Apr 09, 2024 11:38 AM Reporting Lab: [address] [address] Performing Lab: [address] [place] [address] [facility]TRN [facility] BASIC METABOLIC PANEL (non-fast ing) SODIUM [MOLES/VOLU ME] IN SERUM OR PLASMA 139 mmol/L 135 - 145 04/09 Specimen Type: SERUM No comment entered. Ordering Provider: HARPREET BELL SA Report Released Date/Time: Apr 09, 2024 11:38 AM Reporting Lab: [facility]RL TRN [facility] [address] Performing Lab: [facility]RL [facility]N [facility] [address] [facility] SYSTEMRL.[facility]N [facility]ITAL[facility] BASIC METABOLIC PANEL (non-fast ing) POTASSIUM [MOLES/VOLU ME] IN SERUM OR PLASMA 4.0 mmol/L 3.5 - 5.0 04/09 Specimen Type: SERUM No comment entered. Ordering Provider: HARPREET BELL SA Report Released Date/Time: Apr 09, 2024 11:38 AM Reporting Lab: [facility]RL TRN [facility] [address] Performing Lab: [facility]RL TRN [facility] [address] [facility] SYSTEMRL.[facility]N [facility] BASIC METABOLIC PANEL (non-fast ing) CHLORIDE [MOLES/VOLU ME] IN SERUM OR PLASMA 103 mmol/L 100 - 110 04/09 Specimen Type: SERUM No comment entered. Ordering Provider: HARPREET BELL SA Report Released Date/Time: Apr 09, 2024 11:38 AM Reporting Lab: [facility]RL TRN [facility] [address] Performing Lab: [facility]RL TRN [facility] [address] [facility] SYSTEMRL.[facility]ITALN [facility] BASIC METABOLIC PANEL (non-fast ing) CARBON DIOXIDE, TOTAL [MOLES/VOLU ME] IN SERUM OR PLASMA 26 meq/L 20 - 30 04/09 Specimen Type: SERUM No comment entered. Ordering Provider: HARPREET BELL SA Report Released Date/Time: Apr 09, 2024 11:38 AM Reporting Lab: [facility] [place] [facility] [address] [facility] [address] Performing Lab: [facility] SYSTEMRL WSTRN [facility] [address] [facility] [address] [facility]RL WSTRN [facility]ITAL[facility] BASIC METABOLIC PANEL (non-fast ing) CREATININE [MASS/VOLUM E] IN SERUM OR PLASMA 0.80 mg/dL 0.50 - 1.40 04/09 Specimen Type: SERUM No comment entered. Ordering Provider: HARPREET BELL SA Report Released Date/Time: Apr 09, 2024 11:38 AM Reporting Lab: [facility]RL TRN [facility] [address] [facility] [address] Performing Lab: [facility]RL W[facility]N [facility] [address] [facility] [address] [facility] SYSTEMRL.V. [facility]ITALN [facility] BASIC METABOLIC PANEL (non-fast ing) GLOMERULAR FILTRATION RATE/1.73 SQ M.PREDICTED [VOLUME RATE/AREA] IN SERUM, PLASMA OR BLOOD BY CREATININE- BASED FORMULA (CKD-EPI 2020) 83 mL/min 60 04/09 Specimen Type: SERUM No comment entered. Ordering Provider: HARPREET BELL SA Report Released Date/Time: Apr 09, 2024 11:38 AM Reporting Lab: [facility] SYSTEMRL TRN [facility] [address] [facility] [address] Performing Lab: [facility]RL TRN [facility] [address] [facility] [address] [facility]N [facility] LIPID PANEL FASTING CHOLESTEROL [MASS/VOLUM E] IN SERUM OR PLASMA 198 mg/dL 04/09 Specimen Type: SERUM No comment entered. Ordering Provider: HARPREET BELL SA Report Released Date/Time: Apr 09, 2024 11:38 AM Reporting Lab: [facility]RL [facility] [address] [facility] [address] Performing Lab: [facility]RL TRN [facility] [address] [facility] [address] [facility]N [facility] LIPID PANEL FASTING TRIGLYCERID E [MASS/VOLUM E] IN SERUM OR PLASMA 97 mg/dL 0 - 150 04/09 Specimen Type: SERUM No comment entered. Ordering Provider: HARPREET BELL SA Report Released Date/Time: Apr 09, 2024 11:38 AM Reporting Lab: [facility] [place] [facility] [address] [facility] [address] Performing Lab: [facility] [place] [facility] [address] [facility] [address] [facility] [place] [facility] LIPID PANEL FASTING CHOLESTEROL IN LDL [MASS/VOLUM E] IN SERUM OR PLASMA BY CALCULATION 113 mg/dL 0 - 129 04/09 Specimen Type: SERUM No comment entered. Ordering Provider: HARPREET BELL SA Report Released Date/Time: Apr 09, 2024 11:38 AM Reporting Lab: [facility] [place] [facility] [address] [facility] [address] Performing Lab: [facility] [place] [address] [address] [facility]RL [facility] [place] [facility] LIPID PANEL FASTING CHOLESTEROL .TOTAL/CHOL ESTEROL IN HDL [MASS RATIO] IN SERUM OR PLASMA 3.0 04/09 Specimen Type: SERUM No comment entered. Ordering Provider: HARPREET BELL SA Report Released Date/Time: Apr 09, 2024 11:38 AM Reporting Lab: [facility] [place] [facility] [address] [facility] [address] Performing Lab: [facility] [place] [facility] [address] [facility] [address] [facility] [place] [facility] LIPID PANEL FASTING CHOLESTEROL IN HDL [MASS/VOLUM E] IN SERUM OR PLASMA 66 mg/dL 40 - 60 04/09 H Specimen Type: SERUM No comment entered. Ordering Provider: HARPREET BELL SA Report Released Date/Time: Apr 09, 2024 11:38 AM Reporting Lab: [facility] [place] [facility] [address] [facility] [address] Performing Lab: [facility] [place] [address] [address] [facility] [place] [facility] LIVER FUNCTION PROTEIN [MASS/VOLUM E] IN SERUM OR PLASMA 6.3 g/dL 6.0 - 8.3 04/09 Specimen Type: SERUM No comment entered. Ordering Provider: HARPREET BELL SA Report Released Date/Time: Apr 09, 2024 11:38 AM Reporting Lab: [facility] [place] [facility] [address] [facility] [address] Performing Lab: [facility] [facility] [address] [facility] [address] [facility] [place] [facility] LIVER FUNCTION ALBUMIN [MASS/VOLUM E] IN SERUM OR PLASMA 4.1 g/dL 3.5 - 5.0 04/09 Specimen Type: SERUM No comment entered. Ordering Provider: HARPREET EBLL SA Report Released Date/Time: Apr 09, 2024 11:38 AM Reporting Lab: [place] [address] [address] Performing Lab: [place] [facility] [facility] [address] [facility] [address] [place] [facility] [place] [place] [facility] LIVER FUNCTION ALKALINE PHOSPHATASE [ENZYMATIC ACTIVITY/VO LUME] IN SERUM OR PLASMA 63 U/L 40 - 150 04/09 Specimen Type: SERUM No comment entered. Ordering Provider: HARPREET BELL SA Report Released Date/Time: Apr 09, 2024 11:38 AM Reporting Lab: [place] [facility] [facility] [address] [facility] [address] Performing Lab: [facility] [place] [facility] [address] [facility] [address] [place] [facility] [place] [facility] LIVER FUNCTION ASPARTATE AMINOTRANSF ERASE [ENZYMATIC ACTIVITY/VO LUME] IN SERUM OR PLASMA 16 U/L 5 - 34 04/09 Specimen Type: SERUM No comment entered. Ordering Provider: HARPREET BELL SA Report Released Date/Time: Apr 09, 2024 11:38 AM Reporting Lab: [place] [address] [address] Performing Lab: [place] [address] [address] [facility] LIVER FUNCTION ALANINE AMINOTRANSF ERASE [ENZYMATIC ACTIVITY/VO LUME] IN SERUM OR PLASMA 16 U/L 04/09 Specimen Type: SERUM No comment entered. Ordering Provider: HARPREET BELL SA Report Released Date/Time: Apr 09, 2024 11:38 AM Reporting Lab: [facility]RL [facility] [address] Performing Lab: IN CNTRL [facility] [address] [facility] LIVER FUNCTION BILIRUBIN.T OTAL [MASS/VOLUM E] IN SERUM OR PLASMA 0.7 mg/dL 0.2 - 1.2 04/09 Specimen Type: SERUM No comment entered. Ordering Provider: HARPREET BELL SA Report Released Date/Time: Apr 09, 2024 11:38 AM Reporting Lab: [facility]RL [facility]N [facility] [address] Performing Lab: [facility] SYSTEMRL WSTRN [facility] [address] [facility] HEMOGLOBI N A1C PANEL HEMOGLOBIN A1C/HEMOGLO BIN.TOTAL IN BLOOD BY HPLC 5.5 4.0 - 5.6 04/09 Specimen Type: BLOOD Comment: Values obtained from A1C measurement s can vary. For atypical A1C assays, a reported value of 7.0 could actually be between 6.72 and 7.28 if measured by a reference method. A reported value of 9.0 could actually be between 8.73 and 9.27. Ref: [email or web address]. ngsp.org/[place] Pdata.asp Ordering Provider: HARPREET BELL SA Report Released Date/Time: Apr 09, 2024 11:38 AM Reporting Lab: [facility] SYSTEMRL.[facility]. [facility]ITALN [address] [address] Performing Lab: [facility] [address] [address] [facility] CBC AND DIFF (AUTO) LEUKOCYTES [#/VOLUME] IN BLOOD BY AUTOMATED COUNT 5.61 10*3/u L 4.50 - 11.00 04/09 Specimen Type: BLOOD No comment entered. Ordering Provider: HARPREET BELL SA Report Released Date/Time: Apr 09, 2024 11:38 AM Reporting Lab: [facility] [place] [facility] [address] [facility] [address] Performing Lab: [facility] [place] [facility] [address] [facility] [address] [facility] [place] [facility] CBC AND DIFF (AUTO) ERYTHROCYTE S [#/VOLUME] IN BLOOD BY AUTOMATED COUNT 4.66 10*6/u L 3.93 - 5.16 04/09 Specimen Type: BLOOD No comment entered. Ordering Provider: HARPREET BELL SA Report Released Date/Time: Apr 09, 2024 11:38 AM Reporting Lab: [facility] [place] [address] [address] Performing Lab: [facility] [place] [facility] [address] [facility] [address] [facility] [place] [facility] CBC AND DIFF (AUTO) HEMOGLOBIN [MASS/VOLUM E] IN BLOOD 13.7 g/dL 12 - 15.2 04/09 Specimen Type: BLOOD No comment entered. Ordering Provider: HARPREET BELL SA Report Released Date/Time: Apr 09, 2024 11:38 AM Reporting Lab: [facility] [place] [address] [address] Performing Lab: [facility] [place] [facility] [address] [facility] [address] [facility] [place] [facility] CBC AND DIFF (AUTO) HEMATOCRIT [VOLUME FRACTION] OF BLOOD BY AUTOMATED COUNT 41.2 36.6 - 45.6 04/09 Specimen Type: BLOOD No comment entered. Ordering Provider: HARPREET BELL SA Report Released Date/Time: Apr 09, 2024 11:38 AM Reporting Lab: [facility] [address] [address] Performing Lab: [facility] [address] [facility] [address] [facility] CBC AND DIFF (AUTO) MCV [ENTITIC VOLUME] BY AUTOMATED COUNT 88.4 fL 82 - 99 04/09 Specimen Type: BLOOD No comment entered. Ordering Provider: HARPREET BELL SA Report Released Date/Time: Apr 09, 2024 11:38 AM Reporting Lab: [facility] [address] [facility] [address] Performing Lab: [facility] [address] [facility] [address] [facility] CBC AND DIFF (AUTO) MCHC [MASS/VOLUM E] BY AUTOMATED COUNT 33.3 g/dL 30.8 - 35.1 04/09 Specimen Type: BLOOD No comment entered. Ordering Provider: HARPREET BELL SA Report Released Date/Time: Apr 09, 2024 11:38 AM Reporting Lab: [facility] [address] [facility] [address] Performing Lab: [facility] [address] [facility] [address] [facility] CBC AND DIFF (AUTO) PLATELETS [#/VOLUME] IN BLOOD BY AUTOMATED COUNT 315 10*3/u L 140 - 360 04/09 Specimen Type: BLOOD No comment entered. Ordering Provider: HARPREET BELL SA Report Released Date/Time: Apr 09, 2024 11:38 AM Reporting Lab: [facility] [address] [facility] [address] Performing Lab: [facility] [address] [facility] [address] [facility] CBC AND DIFF (AUTO) ERYTHROCYTE DISTRIBUTIO N WIDTH [RATIO] BY AUTOMATED COUNT 12.7 12.0 - 16.0 04/09 Specimen Type: BLOOD No comment entered. Ordering Provider: HARPREET BELL SA Report Released Date/Time: Apr 09, 2024 11:38 AM Reporting Lab: [facility] [address] [facility] [address] Performing Lab: [facility] [address] [facility] [address] [facility] CBC AND DIFF (AUTO) MONOCYTES [#/VOLUME] IN BLOOD BY AUTOMATED COUNT 0.49 10*3/u L 0.30 - 1.10 04/09 Specimen Type: BLOOD No comment entered. Ordering Provider: HARPREET BELL SA Report Released Date/Time: Apr 09, 2024 11:38 AM Reporting Lab: [facility] [address] [facility] [address] Performing Lab: [facility] [address] [facility] [address] [facility] CBC AND DIFF (AUTO) MCH [ENTITIC MASS] BY AUTOMATED COUNT 29.4 pg 26.2 - 32.6 04/09 Specimen Type: BLOOD No comment entered. Ordering Provider: HARPREET BELL SA Report Released Date/Time: Apr 09, 2024 11:38 AM Reporting Lab: [facility] [address] [facility] [address] Performing Lab: [facility] [address] [facility] [address] [facility] CBC AND DIFF (AUTO) NEUTROPHILS /100 LEUKOCYTES IN BLOOD BY AUTOMATED COUNT 60.9 43.7 - 75.8 04/09 Specimen Type: BLOOD No comment entered. Ordering Provider: HARPREET BELL SA Report Released Date/Time: Apr 09, 2024 11:38 AM Reporting Lab: [facility] [address] [facility] [address] Performing Lab: [facility] [address] [facility] [address] [facility] CBC AND DIFF (AUTO) LYMPHOCYTES /100 LEUKOCYTES IN BLOOD BY AUTOMATED COUNT 27.8 14.0 - 42.3 04/09 Specimen Type: BLOOD No comment entered. Ordering Provider: HARPREET BELL SA Report Released Date/Time: Apr 09, 2024 11:38 AM Reporting Lab: [facility] [address] [facility] [address] Performing Lab: [facility] [address] [facility] [address] [facility] CBC AND DIFF (AUTO) MONOCYTES/1 00 LEUKOCYTES IN BLOOD BY AUTOMATED COUNT 8.7 5.1 - 13.7 04/09 Specimen Type: BLOOD No comment entered. Ordering Provider: HARPREET BELL SA Report Released Date/Time: Apr 09, 2024 11:38 AM Reporting Lab: [facility] [address] [facility] [address] Performing Lab: [facility] [address] [place] [address] [facility] CBC AND DIFF (AUTO) EOSINOPHILS /100 LEUKOCYTES IN BLOOD BY AUTOMATED COUNT 1.6 0.4 - 6.8 04/09 Specimen Type: BLOOD No comment entered. Ordering Provider: HARPREET BELL SA Report Released Date/Time: Apr 09, 2024 11:38 AM Reporting Lab: [facility] [address] [place] [phone] Performing Lab: [facility] [address] [place] [address] [facility] CBC AND DIFF (AUTO) BASOPHILS/1 00 LEUKOCYTES IN BLOOD BY AUTOMATED COUNT 0.5 0.1 - 2.0 04/09 Specimen Type: BLOOD No comment entered. Ordering Provider: HARPREET BELL SA Report Released Date/Time: Apr 09, 2024 11:38 AM Reporting Lab: [facility] [address] [place] [phone] Performing Lab: [facility] [address] [place] [address] [facility] CBC AND DIFF (AUTO) NEUTROPHILS [#/VOLUME] IN BLOOD BY AUTOMATED COUNT 3.41 10*3/u L 2.20 - 7.60 04/09 Specimen Type: BLOOD No comment entered. Ordering Provider: HARPREET BELL SA Report Released Date/Time: Apr 09, 2024 11:38 AM Reporting Lab: [facility] [address] [address] Performing Lab: [facility] [address] [address] [facility] CBC AND DIFF (AUTO) LYMPHOCYTES [#/VOLUME] IN BLOOD BY AUTOMATED COUNT 1.56 10*3/u L 1.00 - 3.20 04/09 Specimen Type: BLOOD No comment entered. Ordering Provider: HARPREET BELL SA Report Released Date/Time: Apr 09, 2024 11:38 AM Reporting Lab: [facility] [address] [address] Performing Lab: [facility] [address] [address] [facility] CBC AND DIFF (AUTO) EOSINOPHILS [#/VOLUME] IN BLOOD BY AUTOMATED COUNT 0.09 10*3/u L 0.03 - 0.44 04/09 Specimen Type: BLOOD No comment entered. Ordering Provider: HARPREET BELL SA Report Released Date/Time: Apr 09, 2024 11:38 AM Reporting Lab: [facility] [address] [address] Performing Lab: [facility] [address] [address] [facility] CBC AND DIFF (AUTO) BASOPHILS [#/VOLUME] IN BLOOD BY AUTOMATED COUNT 0.03 10*3/u L 0.01 - 0.13 04/09 Specimen Type: BLOOD No comment entered. Ordering Provider: HARPREET BELL SA Report Released Date/Time: Apr 09, 2024 11:38 AM Reporting Lab: [facility] [address] [address] Performing Lab: [facility] [address] [facility] [address] [facility] CBC AND DIFF (AUTO) IMMATURE GRANULOCYTE S/100 LEUKOCYTES IN BLOOD BY AUTOMATED COUNT 0.5 0.0 - 0.7 04/09 Specimen Type: BLOOD No comment entered. Ordering Provider: HARPREET BELL SA Report Released Date/Time: Apr 09, 2024 11:38 AM Reporting Lab: [facility] [place] [facility] [address] [facility] [address] Performing Lab: [facility] [place] [facility] [address] [facility] [address] [facility] CBC AND DIFF (AUTO) IMMATURE GRANULOCYTE S [#/VOLUME] IN BLOOD 0.03 10*3/u L 0.00 - 0.06 04/09 Specimen Type: BLOOD No comment entered. Ordering Provider: HARPREET BELL SA Report Released Date/Time: Apr 09, 2024 11:38 AM Reporting Lab: [facility] [place] [facility] [address] [facility] [address] Performing Lab: [facility] [place] [facility] [address] [facility] [address] [facility] TSH THYROTROPIN [UNITS/VOLU ME] IN SERUM OR PLASMA 2.17 u[IU]/ mL 0.35 - 5.00 04/09 Specimen Type: SERUM No comment entered. Ordering Provider: HARPREET BELL SA Report Released Date/Time: Apr 09, 2024 11:38 AM Reporting Lab: [facility] [place] [facility] [address] [facility] [address] Performing Lab: [facility] [place] [address] [address] [facility] [place] [facility] Vital Signs Combined list of inpatient and outpatient Vital Signs from Department of Defense and Veterans Affairs, ranging from 12 months to all on record, depending upon the facility. Vital Sign Value Date Comments Source SYSTOLIC BLOOD PRESSURE 163 10/16/20 24 15:08:11 [facility] DIASTOLIC BLOOD PRESSURE 61 024 15:08:11 [facility] PULSE OXIMETRY 98 10/16/2024 15:08:11 [facility] WEIGHT 191 10/16/2024 15:08:11 [facility] BMI 30kg/m2 10/16/2024 15:08:11 [facility] PAIN 0 10/16/2024 15:08:11 [facility] TEMPERATURE 96.6 10/16/2024 15:08:11 [facility] PULSE 79 10/16/2024 15:08:11 [facility] RESPIRATION 16 10/16/2024 15:08:11 [facility] SYSTOLIC BLOOD PRESSURE 148 07/17/20 24 09:15:00 [facility] DIASTOLIC BLOOD PRESSURE 84 024 09:15:00 [facility] PULSE OXIMETRY 100 07/17/2024 09:15:00 [facility] WEIGHT 194.2 07/17/2024 09:15:00 [facility] BMI 30kg/m2 07/17/2024 09:15:00 [facility] PAIN 0 07/17/2024 09:15:00 [facility] TEMPERATURE 97.4 07/17/2024 09:15:00 [facility] PULSE 71 07/17/2024 09:15:00 [facility] RESPIRATION 16 07/17/2024 09:15:00 [facility] SYSTOLIC BLOOD PRESSURE 149 06/11/20 24 11:30:48 [facility] DIASTOLIC BLOOD PRESSURE 81 024 11:30:48 [facility] PULSE OXIMETRY 97 06/11/2024 11:30:48 [facility] WEIGHT 194 06/11/2024 11:30:48 [facility] BMI 30kg/m2 06/11/2024 11:30:48 [facility] TEMPERATURE 97.1 06/11/2024 11:30:48 [facility] PULSE 81 06/11/2024 11:30:48 [facility] RESPIRATION 16 06/11/2024 11:30:48 [facility] SYSTOLIC BLOOD PRESSURE 146 04/09/20 24 11:16:06 [facility] DIASTOLIC BLOOD PRESSURE 83 024 11:16:06 [facility] PULSE OXIMETRY 97 04/09/2024 11:16:06 [facility] WEIGHT 195 04/09/2024 11:16:06 [facility] BMI 31kg/m2 04/09/2024 11:16:06 [facility] PAIN 0 04/09/2024 11:16:06 [facility] TEMPERATURE 98.4 04/09/2024 11:16:06 [facility] PULSE 66 04/09/2024 11:16:06 [facility] RESPIRATION 14 04/09/2024 11:16:06 [facility] SYSTOLIC BLOOD PRESSURE 142 12/06/19 24 10:58:07 [facility] DIASTOLIC BLOOD PRESSURE 85 024 10:58:07 [facility] PULSE OXIMETRY 98 12/06/2023 10:58:07 [facility] PAIN 1 12/06/2023 10:58:07 [facility] TEMPERATURE 98 12/06/2023 10:58:07 [facility] PULSE 81 12/06/2023 10:58:07 [facility] RESPIRATION 16 12/06/2023 10:58:07 [facility] Encounters Combined list of: 1) Encounters from Department of Veterans Affairs facilities going back up to thelast 18 months. 2) Encounters from the Department of [facility] facilities going back up to 280 months. Location Location Details Encounter Type Encounter Number Reason For Visit Attending Provider ADM Date DC Date Status Disposition Source [facility] [place] [facility] Outpatient Encounter [id number] 11/14 [place] [facility] [place] [facility] [place] [facility] OFFICE O/P EST MOD 30 MIN [id number] Diagnos is: ICD-10- CM J06.9 Acute upper respira tory infecti on, unspeci fied
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
DAILY ARMSTRONG L 11/23 [facility] [place] [facility] [place] [facility] OFF/OP EST MAY X REQ PHY/QHP [id number] Diagnos is: ICD-10- CM Z04.9 Encount er for examina tion and observa tion for unsp reason< br/> DAILY ARMSTRONG L 12/06 [facility] [place] [facility] [place] [facility] Outpatient Encounter [id number] 12/13 [facility] [place] En[facility] [id number] Greg ALEXANDER 12/13 [facility] Encounter [id number] 12/14 [facility] Out[facility] Encounter [id number] 03/27 [facility] Outpatient Encounter [id number] 04/08 [facility] [place] Out[facility] Encounter [id number] 04/09 [facility] OFFICE O/P EST MOD 30 MIN [id number] Diagnos is: ICD-10- CM I10 Essenti al (primar y) hyperte nsion<b r/> Sondra BELL 04/09 [facility] Encounter [id number] 04/09 [facility] Out[facility] Encounter [id number] 04/24 [facility] Out[facility] Encounter [id number] 05/01 [facility] Out[facility] Encounter [id number] 06/10 [facility] Out[facility] Encounter [id number] 06/10 [facility] [place] [facility] [place] [facility] OFFICE O/P EST MOD 30 MIN [id number] 1. Diagnos is: ICD-10- CM J30.89 Other allergi c rhiniti s
ARABELLA,L PORSHA OLIVIA 06/11 [facility] [place] [facility] [place] [facility] Outpatient Encounter [id number] 06/11 [facility] [place] [facility] [place] [place] [facility] OFF/OP CNSLTJ NEW/EST MOD 40 [id number] 1. Diagnos is: ICD-10- CM J30.9 Allergi c rhiniti s, unspeci fied
RADAMES GOLDSTEIN 07/17 [facility] [place] [facility] OFFICE O/P EST MOD 30 MIN [id number] 1QA. 43 Diagnos is: ICD-10- CM H25.13 Age-rel ated nuclear catarac t, bilater al
[facility] ER LORE 08/14 [facility] CPTR OPHTH DX IMG POST SEGMT [id number] Diagnos is: ICD-10- CM H53.9 Unspeci fied visual disturb ance
[facility]14 [facility] [place] [facility] FIT SPECTACLES MONOFOCAL [id number] 1. Diagnos is: ICD-10- CM Z46.0 Encount er for fit/adj st of spectac les and contact lenses< br/> [facility]14 [facility] [place] [facility] [place] [facility] Outpatient [facility]counter [id number] 08/30 [place] [facility] [place] [facility] [place] [facility] OFFICE O/P EST LOW 20 MIN [id number] Diagnos is: ICD-10- CM J30.89 Other allergi c rhiniti s
RADAMES GOLDSTEIN 10/16 [place] [facility] [place] [facility] Social History Combined list of available smoking, tobacco, and other social history from Department of Defense and Veterans Affairs facilities. Social History Type Response Date Comment Sour e Tobacco smoking status NHIS VA-TOBACCO QUIT 15 YRS OR MORE 11/23/2023 [facility] [place] [facility] History of tobacco use IN-TOBACCO FORMER USER 11/23/2023 [facility] [place] [facility] History of tobacco use VA-TOBACCO NEVER USED 07/13/2022 [place] [facility] [place] [facility] History of tobacco use VA-TOBACCO NEVER USED 06/09/2021 [facility] [place] [place] [facility] History of tobacco use VA-TOBACCO NEVER USED 02/20/2020 [place] [facility] [place] [facility] History of tobacco use VA-TOBACCO NEVER USED 02/11/2019 [facility] [place] [facility] History of tobacco use LIFETIME NON-TOBACCO USER 03/07/2018 [facility] [place] [facility] History of tobacco use LIFETIME NON-TOBACCO USER 06/01/2016 [facility] [place] [facility] History of tobacco use LIFETIME NON-TOBACCO USER 06/12/2012 [facility] [place] [facility]
--- OUTSIDE RECORDS SUMMARY | 2024-11-19 13:28 | XMS_ITS ---
Author Organization [facility] Address [address] [place] [address] Care Team Providers Care Machine Ii Coremaker Name Role Phone Jennifer Peraza N.P Primary Care Provider Unavail able Michael Shoemaker Unavailable [phone] ALLERGIES No Known Allergies REASON FOR VISIT Patient presents today for a SCREENING COLON MEDICATIONS Medication SIG (Take, Route, Frequency, Duration) Notes Start Date End Date Status hydroCHLOROthiazide 25 MG 1 tablet in th e morning Orally Once a day for 30 day(s) Active Simvastatin 40 MG 1/2 tablet in the ev ening Orally Once a day Active Multivitamin Adult [...] screening (Z12.11) Active confirmed Colon cancer screening (256103840) Problem Encounter for other preprocedural examination (Z01.818) Active confirmed Pre-procedure evaluation check ([id number]) VITAL SIGNS BMI 30.54 kg/m2 08/30/2024 Blood pressure systolic 00 mm Hg 08/30/20 24 Blood pressure diastolic 00 mm Hg 024 Height 5 ft 7 in in 08/30/2024 Weight 195 lbs 08/30/2024 Encounters Encounter Location Date Provider Diagnosis [facility] [address] [place] [address] 08/30/2024 Michael Shoemaker Colon cancer screeni ng Z12.11 and Encounter for other preprocedural examination Z01.818 ASSESSMENTS Encounter Date Diagnosis Assessment Notes Treatment Notes Treatment Clinical Notes 08/30/2024 Colon cancer screening (ICD-10 - Z12.11) Do not use the Hydrochlorothiaizde the day before nor on the morning of the colonoscopy 08/30/2024 Encounter for other preprocedural examination (ICD-10 - Z01.818) PLAN OF TREATMENT Treatment Notes Assessment Notes Colon cancer screening Do not use the Hy drochlorothiaizde the day before nor on the morning of the colonoscopy Future Test Test Name Order Date COLONOSCOPY 08/30/2024 Next Appt Details Follow Up: prn, Reason: Provider Name:Michael Shoemaker , 11/22/2024 01:00:00 PM, [address] [place] [address], [phone], Progress Notes * Examination Category Sub-Category Detail Notes General Examination GENERAL APPEARANCE: pleasant , well nourished, well developed, in no acute distress HEAD: EYES: sclera non-icteric EARS: NOSE: THROAT: NECK/THYROID: no cervical lymphade nopathy, neck supple HEART: S1, S2 normal CHEST: LUNGS: clear to auscultatio n bilaterally ABDOMEN: normal bowel sounds, no guarding or rigidity, no guarding or rigidity, no masses palpable, soft, nontender, nondistended NEUROLOGIC: alert and oriented SKIN: nonjaundiced, no spi liz angiomata EXTREMITIES: no edema PERIPHERAL PULSES: BACK: BREASTS: MUSCULOSKELETAL: MALE GENITOURINARY: LYMPH NODES: RECTAL EXAM: FEMALE GENITOURINARY: ORAL CAVITY: mucosa moist
--- OUTSIDE RECORDS SUMMARY | 2024-11-19 13:29 | XMS_ITS ---
Author Name [facility] [place] Organization [facility] [place] Address [address] [place] [address] Care Team Providers Care Processing Rep Name Role Phone CHELA BELL Primary Care Provider Unavailabl e Selected Encounter This section includes the information on record at [place] for the Encounter. Date/Time Encounter Type Encounter Description Reason Pro vider Source Dec 13, 2023 02:37 PM Outpatient Encounter ADMIN PAT ACTIVTIES (MASNONCT) IHE Encounter Template Text not used by [place] Plan of Treatment: Future Appointments (+ 6 months) and Future Tests (+/- 45 days) The Plan of Treatment section includes future care activities for the patient from all [place] treatmentfacilities. This section includes future appointments and future orders which are active, pending or scheduled. Future Appointments This section includes appointments that were scheduled to occur 6 months from the date of the Encounter, up to a maximum of 20 appointments. The data comes from all [place] treatment facilities. Appointment Date/Time Appointment Type Appointme nt Facility Name March 20, 2024 09:00 AM AMBULATORY - MEDICINE [facility] [place] [facility] Apr 09, 2024 11:00 AM AMBULATORY - MEDICINE [facility] [facility] Apr 24, 2024 08:15 AM AMBULATORY - MEDICINE [facility] [facility] Jun 11, 2024 11:30 AM AMBULATORY [facility]ICINE [facility] Social History: Smoking Status (Most current) and Tobacco Use (All prior to encounter date) This section includes the most current, and the historical, smoking and tobacco- related health factors from the [place] facility where the Encounter took place. Current Smoking Status This section includes the most current smoking, or tobacco-related health factor, from the [place] facility where the Encounter took place. Date/Time Current Smoking Status Comment Rick calles Nov 23, 2023 12:07 PM VA-TOBACCO [facility] USER [facility] [place] [facility] Tobacco Use History This section includes a history of the smoking, or tobacco-related health factors, that were collected on or before the date of the Encounter. The data comes from the [place] facility where the Encounter took place. Date/Time Smoking Status/Tobacco Use Comment F dean Nov 23, 2023 12:07 PM VA-TOBACCO QUIT 15 YRS OR MORE [facility] [facility] Jul 13, 2022 10:30 AM VA-TOBACCO NEVER USED [facility] [facility] Jun 09, 2021 11:00 AM VA-TOBACCO NEVER USED [facility] [facility] Feb 20, 2020 03:16 PM VA-TOBACCO NEVER USED [facility] [place] [facility] Feb 11, 2019 10:08 AM VA-TOBACCO NEVER USED [facility] [facility] March 07, 2018 09:17 AM LIFETIME NON-TOBACCO USER [facility] [facility] Jun 01, 2016 10:04 AM LIFETIME NON-TOBACCO USER [facility] [place] [facility] Jun 12, 2012 10:28 AM LIFETIME NON-TOBACCO USER [facility] [place] [facility] Encounter Notes: All associated encounter notes This section contains the clinical notes associated to the Encounter. Date/Time Encounter Note(s) Provider Source Dec 13, 2023 02:37 PM ADDENDUM: LOCAL TITLE: Addendum STANDARD TITLE: ADDENDUM DATE OF NOTE: DEC 13, 2023@14:37:36 ENTRY DATE: DEC 13, 2023@14:37:36 AUTHOR: COLUMBA HUGHES COSIGNER: URGENCY: STATUS: COMPLETED please offer PCP appt or Vet can utilize sick call /sundeep/ Columba Hughes RN Primary Care Staff Nurse Signed: 12/13/2023 14:37 Receipt Acknowledged By: 12/13/2023 14:43 /sundeep/ SERGEY ALFARO AMSA for SUKHI SALINAS === --- Original Document --- 12/13/23 CCC: SCHEDULING ADMINISTRATION: Patient Demographics Patient Name: LEXUS DASILVA Patient Primary Phone: [phone] Patient Primary Address: [address] [place] [address] Patient : 1960 Patient Age: 63 Caller/Recipient Relation to Patient: Self Scheduling Cannot Complete Scheduling Action Reason: No Appointment Available Requested Service(s): Primary Care Scheduling Note Reason: Cannot Complete Appointment Request Open Request: None of the above Administrative Administrative Note Reason: Other Administrative Note Comments: Rawlings 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 RN recommended f2f with PC within 24 hours. Paper Cutting Machine Operator was unable to schedule within time frame. Please advise /sundeep/ [facility] AMSA Signed: 12/13/2023 14:37 Receipt Acknowledged By: * AWAITING SIGNATURE * COURTNEY ARMSTRONG 12/13/2023 14:38 /sundeep/ Columba Hughes RN Primary Care Staff Nurse 12/13/2023 ADDENDUM STATUS: UNSIGNED You may not VIEW this UNSIGNED Addendum. COLUMBA HUGHES [facility] [place] [facility] Dec 13, 2023 02:37 PM ADMINISTRATIVE NOTE: LOCAL TITLE: CCC: SCHEDULING ADMINISTRATION STANDARD TITLE: ADMINISTRATIVE NOTE DATE OF NOTE: DEC 13, 2023@14:37:08 ENTRY DATE: DEC 13, 2023@14:37:08 AUTHOR: BABAR COATS EXP COSIGNER: URGENCY: STATUS: COMPLETED CCC: SCHEDULING ADMINISTRATION Has ADDENDA Patient Demographics Patient Name: LEXUS DASILVA Patient Primary Phone: [phone] Patient Primary Address: [address] [place] [address] Patient : 1960 Patient Age: 63 Caller/Recipient Relation to Patient: Self Scheduling Cannot Complete Scheduling Action Reason: No Appointment Available Requested Service(s): Primary Care Scheduling Note Reason: Cannot Complete Appointment Request Open Request: None of the above Administrative Administrative Note Reason: Other Administrative Note Comments: [place] 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 RN recommended f2f with PC within 24 hours. Paper Cutting Machine Operator was unable to schedule within time frame. Please advise /sundeep/ [facility] WANDY Signed: 12/13/2023 14:37 Receipt Acknowledged By: 12/14/2023 08:54 /es/ COURTNEY ARMSTRONG, MSN, RN, CNL PRIMARY CARE TEAM NURSE 12/13/2023 14:38 /sundeep/ Columba Hughes RN Primary Care Staff Nurse 12/13/2023 ADDENDUM STATUS: COMPLETED please offer PCP appt or Vet can utilize sick call /sundeep/ Columba Hughes RN Primary Care Staff Nurse Signed: 12/13/2023 14:37 Receipt Acknowledged By: 12/13/2023 14:43 /sundeep/ SERGEY SABA for SUKHI SALINAS 12/13/2023 ADDENDUM STATUS: COMPLETED ELSYA spoke with , due to provider unavailability, will utilize Sick Call hours tomorrow morning for walk in care. /sundeep/ SERGEY SABA Signed: 12/13/2023 14:44 BABAR COATS [facility]
--- OUTSIDE RECORDS SUMMARY | 2024-11-19 13:29 | XMS_ITS | Encounter Summary ---
Author Name [facility] [place] Organization [facility] [place] Address [address] [place] [address] Care Team Providers Care Manager Of Training And Development Name Role Phone CHELA BELL Primary Care Provider Unavailabl e Selected Encounter This section includes the information on record at [place] for the Encounter. Date/Time Encounter Type Encounter Description Reason Pro vider Source Apr 24, 2024 12:00 PM Outpatient Encounter COMMUNITY CARE CONSULT IHE Encounter Template Text not used by [place] Plan of Treatment: Future Appointments (+ 6 months) and Future Tests (+/- 45 days) The Plan of Treatment section includes future care activities for the patient from all [place] treatmentfacilities. This section includes future appointments and future orders which are active, pending or scheduled. Future Appointments This section includes appointments that were scheduled to occur 6 months from the date of the Encounter, up to a maximum of 20 appointments. The data comes from all [place] treatment facilities. Appointment Date/Time Appointment Type Appointme nt Facility Name Jun 11, 2024 11:30 AM [facility] [place] [facility] Jul 17, 2024 09:00 AM [facility] [place] [facility] Aug 14, 2024 10:00 AM AMBULATORY [facility] SURGERY [facility] [place] [facility] Aug 14, 2024 11:00 AM AMBULATORY [facility] SURGERY [facility] [place] [facility] Aug 30, 2024 01:15 PM AMBULATORY - NONE [facility] [place] [place] [facility] Oct 16, 2024 03:00 PM AM[facility]ULATORY [facility]INE [facility] [place] [facility] Lab Results: +/- 30 days of the encounter This section includes the Chemistry and Hematology Lab Results on record with [place] for the patient. Radiology Reports and Pathology Reports are provided separately, in subsequent sections. Lab Results This section contains the Chemistry/Hematology Results that were resulted 30 days before or 30 daysafter the date of the Encounter. Date/Time Source Result Type Result - Unit Interpretation Reference Range Comment Apr 09, 2024 12:56 PM [facility] LIPID PANEL FASTING Specimen Type: SERUM No comment entered. Ordering Provider: CHELA BELL Report Released Date/Time: Apr 09, 2024 11:38 AM Reporting Lab: [address] [address] Performing Lab: [address] [address] CHOLESTEROL 198 mg/dL TRIGLYCERIDE 97 mg/dL 0-150 LDL calculated 113 mg/dL 0-129 CHOL/HDL 3.0 HDL CHOLESTEROL 66 mg/dL H 40-60 Apr 09, 2024 12:56 PM [facility] BASIC METABOLIC PANEL (non-fasting) Specimen Type: SERUM No comment entered. Ordering Provider: CHELA BELL Report Released Date/Time: Apr 09, 2024 11:38 AM Reporting Lab: [address] [address] Performing Lab: [address] [address] UREA NITROGEN 18 mg/dL 7-25 GLUCOSE 91 mg/dL 65-100 SODIUM 139 mmol/L 135-145 POTASSIUM 4.0 mmol/L 3.5-5.0 CHLORIDE 103 mmol/L 100-110 CO2 26 meq/L 20-30 CREATININE, Serum 0.80 mg/dL 0.50-1.40 eGFR(CKD-EPI 2020) 83 mL/min >60 Apr 09, 2024 12:56 PM [facility] LIVER FUNCTION Specimen Type: SERUM No comment entered. Ordering Provider: CHELA BELL Report Released Date/Time: Apr 09, 2024 11:38 AM Reporting Lab: [facility] [address] [facility] [address] Performing Lab: [facility] [address] [facility] [address] [facility] [address] PROTEIN,TOTAL 6.3 g/dL 6.0-8.3 ALBUMIN 4.1 g/dL 3.5-5.0 ALKALINE PHOSPHATASE 63 U/L 40-150 AST 16 U/L 5-34 ALT 16 U/L BILIRUBIN, TOTAL 0.7 mg/dL 0.2-1.2 Apr 09, 2024 12:56 PM [facility] HEMOGLOBIN A1C PANEL Specimen Type: BLOOD Comment: Values obtained from A1C measurements can vary. For atypical A1C assays, a reported value of 7.0 could actually be between 6.72 and 7.28 if measured by a reference method. A reported value of 9.0 could actually be between 8.73 and 9.27. Ref: http://www.ngs p.org/CAPdata. asp Ordering Provider: CHELA BELL Report Released Date/Time: Apr 09, 2024 11:38 AM Reporting Lab: [facility] [address] [facility] [address] Performing Lab: [address] [address] HEMOGLOBIN A1C 5.5 4.0-5.6 Apr 09, 2024 12:56 PM [facility] TSH Specimen Type: SERUM No comment entered. Ordering Provider: CHELA BELL Report Released Date/Time: Apr 09, 2024 11:38 AM Reporting Lab: [facility] [address] [facility] [address] Performing Lab: [facility] [address] [facility] [address] TSH 2.17 u[IU]/mL 0.35-5.00 Apr 09, 2024 12:56 PM [facility] CBC AND DIFF (AUTO) Specimen Type: BLOOD No comment entered. Ordering Provider: CHELA BELL Report Released Date/Time: Apr 09, 2024 11:38 AM Reporting Lab: [facility] [address] [facility] [address] Performing Lab: [facility] [address] [facility] [address] WBC 5.61 10*3/uL 4.50-11.00 RBC 4.66 10*6/uL 3.93-5.16 HGB 13.7 g/dL 12-15.2 HCT 41.2 36.6-45.6 MCV 88.4 fL 82-99 MCHC 33.3 g/dL 30.8-35.1 PLT 315 10*3/uL 140-360 RDW-CV 12.7 12.0-16.0 Hooker, Abs 0.49 10*3/uL 0.30-1.10 MCH 29.4 pg 26.2-32.6 Neut % 60.9 43.7-75.8 Lymph % 27.8 14.0-42.3 Hooker % 8.7 5.1-13.7 Eos % 1.6 0.4-6.8 Baso % 0.5 0.1-2.0 Neut, Abs 3.41 10*3/uL 2.20-7.60 Lymph, Abs 1.56 10*3/uL 1.00-3.20 Eos, Abs 0.09 10*3/uL 0.03-0.44 Baso, Abs 0.03 10*3/uL 0.01-0.13 Immature Gran % 0.5 0.0-0.7 Immature Gran, Abs 0.03 10*3/uL 0.00-0.06 Social History: Smoking Status (Most current) and Tobacco Use (All prior to encounter date) This section includes the most current, and the historical, smoking and tobacco- related health factors from the [place] facility where the Encounter took place. Current Smoking Status This section includes the most current smoking, or tobacco-related health factor, from the [place] facility where the Encounter took place. Date/Time Current Smoking Status Comment Facil ity Nov 23, 2023 12:07 PM VA-TOBACCO FORMER USER [facility] Tobacco Use History This section includes a history of the smoking, or tobacco-related health factors, that were collected on or before the date of the Encounter. The data comes from the [place] facility where the Encounter took place. Date/Time Smoking Status/Tobacco Use Comment F acility Nov 23, 2023 12:07 PM VA-TOBACCO QUIT 15 YRS OR MORE [facility] [place] [facility] Jul 13, 2022 10:30 AM VA-TOBACCO NEVER USED [facility] [place] [facility] Jun 09, 2021 11:00 AM VA-TOBACCO NEVER USED [facility] [place] [facility] Feb 20, 2020 03:16 PM VA-TOBACCO NEVER USED [facility] [place] [facility] Feb 11, 2019 10:08 AM VA-TOBACCO NEVER USED [facility] [place] [facility] March 07, 2018 09:17 AM LIFETIME NON-TOBACCO USER [facility] [place] [facility] Jun 01, 2016 10:04 AM LIFETIME NON-TOBACCO USER [facility] [place] [facility] Jun 12, 2012 10:28 AM LIFETIME NON-TOBACCO USER [facility] [place] [facility] Encounter Notes: All associated encounter notes This section contains the clinical notes associated to the Encounter. Date/Time Encounter Note(s) Provider Source Apr 24, 2024 12:00 PM NONVA CONSULT: LOCAL TITLE: COMMUNITY CARE-CONSULT RESULT NOTE STANDARD TITLE: NONVA CONSULT DATE OF NOTE: APR 24, 2024@12:00 ENTRY DATE: MAY 01, 2024@11:05:45 AUTHOR: LEEANN GAUTAM EXP COSIGNER: URGENCY: STATUS: COMPLETED VistA Imaging - Scanned Document SCANNED DOCUMENT SIGNATURE NOT REQUIRED Electronically Filed: 05/01/2024 by: LEEANN GAUTAM SUPERVISOR SIGN SHOP LEEANN GAUTAM [place] [facility] [place] [facility]
--- OUTSIDE RECORDS SUMMARY | 2024-11-19 13:29 | XMS_ITS ---
Author Name [facility] [place] Organization [facility] [place] Address [address] [place] [address] Care Team Providers Care Rack Loader Name Role Phone CHELA BELL Primary Care Provider Unavailabl e Selected Encounter This section includes the information on record at [place] for the Encounter. Date/Time Encounter Type Encounter Description Reason Provider Source Nov 23, 2023 11:30 AM OFFICE O/P EST MOD 30 MIN PRIMARY CARE/MEDICINE ICD-10-CM J06.9 Acute upper respiratory infection, unspecified CHELA BELL [facility] Encounter Template Text not used by [place] Assessments - Encounter Diagnoses This section includes the primary and secondary diagnoses documented for the Encounter. Date/Time Primary/Secondary Diagnosis Diagnosis Name Provider Source Nov 24, 2023 08:06 AM PRIMARY Acute upper respiratory infection, unspecified CHELA BELL [facility] Plan of Treatment: Future Appointments (+ 6 months) and Future Tests (+/- 45 days) The Plan of Treatment section includes future care activities for the patient from all [place] treatmentfacilities. This section includes future appointments and future orders which are active, pending or scheduled. Future Appointments This section includes appointments that were scheduled to occur 6 months from the date of the Encounter, up to a maximum of 20 appointments. The data comes from all [place] treatment facilities. Appointment Date/Time Appointment Type Appointme nt Facility Name Dec 06, 2023 11:00 AM [facility] March 20, 2024 09:00 AM [facility]INE [facility] [place] [facility] Apr 09, 2024 11:00 AM AM[place]ULATORY [place] MEDICINE [place] [facility] [place] [facility] Apr 24, 2024 08:15 AM AM[place]ULATORY [place]ICINE [place] [facility] [place] [facility] Vital Signs: All taken on the encounter date This section contains inpatient and outpatient Vital Signs collected on the date of the Encounter. Date/Time Temperature Pulse Blood Pressure Respiratory Rate SP02 Pain Height Weight Body Mass Index Source Nov 23, 2023 12:13 PM 99.4 F 79 /min 145/77 mm[Hg] 16 /min 100 % 2 [place] [facility] [place] [facility] Social History: Smoking Status (Most current) and Tobacco Use (All prior to encounter date) This section includes the most current, and the historical, smoking and tobacco- related health factors from the [place] facility where the Encounter took place. Current Smoking Status This section includes the most current smoking, or tobacco-related health factor, from the [place] facility where the Encounter took place. Date/Time Current Smoking Status Comment Rick calles Nov 23, 2023 12:07 PM VA-TOBACCO FORMER USER [place] [facility] [place] [facility] Tobacco Use History This section includes a history of the smoking, or tobacco-related health factors, that were collected on or before the date of the Encounter. The data comes from the [place] facility where the Encounter took place. Date/Time Smoking Status/Tobacco Use Comment F dean Nov 23, 2023 12:07 PM VA-TOBACCO QUIT 15 YRS OR MORE [facility] [place] [facility] Jul 13, 2022 10:30 AM VA-TOBACCO NEVER USED [facility] [place] [facility] Jun 09, 2021 11:00 AM VA-TOBACCO NEVER USED [facility] [place] [facility] Feb 20, 2020 03:16 PM VA-TOBACCO NEVER USED [facility] [place] [facility] Feb 11, 2019 10:08 AM VA-TOBACCO NEVER USED [facility] [place] [facility] March 07, 2018 09:17 AM LIFETIME NON-TOBACCO USER [facility] [place] [facility] Jun 01, 2016 10:04 AM LIFETIME NON-TOBACCO USER [facility] [place] [facility] Jun 12, 2012 10:28 AM LIFETIME NON-TOBACCO USER [facility] [facility] Encounter Notes: All associated encounter notes This section contains the clinical notes associated to the Encounter. Date/Time Encounter Note(s) Provider Source Nov 23, 2023 03:56 PM NURSE PRACTITIONER NOTE: LOCAL TITLE: NURSE PRACTIONER/SICK VISIT STANDARD TITLE: NURSE PRACTITIONER NOTE DATE OF NOTE: NOV 23, 2023@15:56 ENTRY DATE: NOV 24, 2023@07:56:45 AUTHOR: CHELA BELL EXP COSIGNER: URGENCY: STATUS: COMPLETED Skin: denies rash or other lesions Psych: denies depression, SI Neuro: denies weakness, dizziness, falls, MATIAS -Vitals- 99.4 F [37.4 C] (11/23/2023 12:13) 79 (11/23/2023 12:13) 16 (11/23/2023 12:13) 145/77 (11/23/2023 12:13) 2 (11/23/2023 12:13) 67 in [170.2 cm] (01/10/2017 14:21) 191.4 lb [86.82 kg] (07/13/2022 10:29) BMI: 30.0 -Physical Exam- General: NAD Head: Normocephalic, atraumatic Eyes: EOMI no nystagmus, PERRLA, Palpebral folds appropriate width, no drooping, sclera white, conjunctiva pink without exudate or edema. Ears: Symmetrical no deformities, Auricles palpable without tenderness, TM well visualized pearly wilde no cerumen foreign body or drainage no erythema mild effusion left side Nose: Patent nares, nasal congestion (+), (+) tenderness on frontal and maxillary sinuses, nasal mucosa boggy and red Mouth/Pharynx/Neck: No Tonsillar exudate or ulcerations, uvula midline, posterior pharynx moist and pink with (+) posterior rhinorrhea No cervical Lymphadenopathy CV: S1S2, rrr, no m/r/g Lung: CTA Bilaterally, no wheeze, rhonchi, or crackles, no audible cough but clearing throat often in room Psych: A&O x3, appropriate mood and affect ASSESSMENT/PLAN: 1)ABRS -Given classic sx and length she has had head congestion will treat with oral Abx -No recent Abx use will treat with Amox 500mg TID for 7 days, encouraged to finish entire course even if feeling better -renewed Flonase -IBU if needed -Encouraged cool mist humidifier for home Supportive home care, fluids, rest Encouraged frequent hand washing and covering mouth with coughing Course, prognosis, return precautions discussed Questions answered Return to ER if: A fever of more than 101? F over next 24H despite antipyretics Loss of appetite Signs of Dehydration If Chest pain when you cough, trouble breathing, or coughing up blood The above plan and education was reviewed with the [place] and they verbalized understanding. Return to clinic to see me in 4- 6 months for annual wellness exams overdue , RTC sooner if needed. -Clinical Reminders- Toxic Exposure Screening: The [place]/caregiver was asked if they believe the [place] experienced any toxic exposure(s), such as Airborne Hazards and Open Burn Pit, [place] [employer] related exposures, Agent [place], Radiation, contaminated water at [place] or other such exposures, while serving in the [employer]. has no concerns about toxic exposure(s) while serving in the [employer]. The /caregiver was informed that we will continue to ask this screening question every 5 years. They can contact their provider/healthcare team if they have concerns about exposures and would like to be screened sooner. Printed information was offered and provided if desired. HTN Assess for Elevated BP>=140/90: The patient's blood pressure is usually adequately controlled. No medication changes are indicated at this time. Comment: and she is not feeling well today will address again at her physical Medication Reconciliation: Outpatient: Has the patient been taking medications as documented in the EMLR? YES: The patient has been taking medications as documented in the EMLR. Essential Medication List for Review used to complete this medication reconciliation. INCLUDED IN THIS LIST: Alphabetical list of active outpatient prescriptions dispensed from this VA (local) and dispensed from another VA or DoD facility (remote) as well as inpatient orders (local, pending and active), local clinic medications, locally documented non-VA medications, and local prescriptions that have or been discontinued in the past 90 days. - All changes in medications, including all non-VA/Herbal/OTC medications were entered into CPRS. - If there were any medications the patient should no longer take, they were discontinued. - The patient/caregiver was instructed to update this list, discard old lists, and take this list to the next appointment, whether with a VA or non-VA provider. /sundeep/ JANET HOLM Nurse Practitioner Signed: 11/24/2023 07:56 CHELA BELL [place] [facility]
--- OUTSIDE RECORDS SUMMARY | 2024-11-19 13:29 | XMS_ITS ---
Author Name [facility] [place] [facility] [place] [facility] [place] Address [address] [place] [address] Care Team Providers Care Rn L And D Name Role Phone CHELA BELL Primary Care Provider Unavailabl e Selected Encounter This section includes the information on record at [place] for the Encounter. Date/Time Encounter Type Encounter Description Reason Pro vider Source Apr 09, 2024 12:00 AM Outpatient Encounter EVENT (HISTORICAL) I[facility] Encounter Template Text not used by [place] Plan of Treatment: Future Appointments (+ 6 months) and Future Tests (+/- 45 days) The Plan of Treatment section includes future care activities for the patient from all [place] treatmentfacilities. This section includes future appointments and future orders which are active, pending or scheduled. Future Appointments This section includes appointments that were scheduled to occur 6 months from the date of the Encounter, up to a maximum of 20 appointments. The data comes from all [place] treatment facilities. Appointment Date/Time Appointment Type Appointme nt Facility Name Apr 24, 2024 08:15 AM AMBULATORY - MEDICINE [facility] [place] [facility] Jun 11, 2024 11:30 AM AMBULATORY - MEDICINE [facility] [place] [facility] Jul 17, 2024 09:00 AM AMBULATORY - MEDICINE [facility] [place] [facility] Aug 14, 2024 10:00 AM AMBULATORY - SURGERY [facility] [place] [facility] Aug 14, 2024 11:00 AM AMBULATORY - SURGERY [facility] [place] [facility] Aug 30, 2024 01:15 PM AMBULATORY - NONE [facility] [place] [facility] Lab Results: +/- 30 days of the encounter This section includes the Chemistry and Hematology Lab Results on record with [place] for the patient. Radiology Reports and Pathology Reports are provided separately, in subsequent sections. Lab Results This section contains the Chemistry/Hematology Results that were resulted 30 days before or 30 daysafter the date of the Encounter. Date/Time Source Result Type Result - Unit Interpretation Reference Range Comment Apr 09, 2024 12:56 PM [facility] LIPID PANEL FASTING Specimen Type: SERUM No comment entered. Ordering Provider: CHELA BELL Report Released Date/Time: Apr 09, 2024 11:38 AM Reporting Lab: [address] [address] Performing Lab: [address] [address] CHOLESTEROL 198 mg/dL TRIGLYCERIDE 97 mg/dL 0-150 LDL calculated 113 mg/dL 0-129 CHOL/HDL 3.0 HDL CHOLESTEROL 66 mg/dL H 40-60 Apr 09, 2024 12:56 PM [facility] BASIC METABOLIC PANEL (non-fasting) Specimen Type: SERUM No comment entered. Ordering Provider: CHELA BELL Report Released Date/Time: Apr 09, 2024 11:38 AM Reporting Lab: [address] [address] Performing Lab: [address] [address] UREA NITROGEN 18 mg/dL 7-25 GLUCOSE 91 mg/dL 65-100 SODIUM 139 mmol/L 135-145 POTASSIUM 4.0 mmol/L 3.5-5.0 CHLORIDE 103 mmol/L 100-110 CO2 26 meq/L 20-30 CREATININE, Serum 0.80 mg/dL 0.50-1.40 eGFR(CKD-EPI 2020) 83 mL/min >60 Apr 09, 2024 12:56 PM [facility] LIVER FUNCTION Specimen Type: SERUM No comment entered. Ordering Provider: CHELA BELL Report Released Date/Time: Apr 09, 2024 11:38 AM Reporting Lab: [facility] [address] [facility] [address] Performing Lab: [facility] [address] [facility] [facility] [address] PROTEIN,TOTAL 6.3 g/dL 6.0-8.3 ALBUMIN 4.1 g/dL 3.5-5.0 ALKALINE PHOSPHATASE 63 U/L 40-150 AST 16 U/L 5-34 ALT 16 U/L BILIRUBIN, TOTAL 0.7 mg/dL 0.2-1.2 Apr 09, 2024 12:56 PM [facility] HEMOGLOBIN A1C PANEL Specimen Type: BLOOD Comment: [...] Apr 09, 2024 11:38 AM Reporting Lab: [facility] [address] [facility] [address] Performing Lab: [address] [address] HEMOGLOBIN A1C 5.5 4.0-5.6 Apr 09, 2024 12:56 PM [facility] TSH Specimen Type: SERUM No comment entered. Ordering Provider: CHELA BELL Report Released Date/Time: Apr 09, 2024 11:38 AM Reporting Lab: [facility] [address] [facility] [address] Performing Lab: [address] [address] TSH 2.17 u[IU]/mL 0.35-5.00 Apr 09, 2024 12:56 PM [facility] CBC AND DIFF (AUTO) Specimen Type: BLOOD No comment entered. Ordering Provider: CHELA BELL Report Released Date/Time: Apr 09, 2024 11:38 AM Reporting Lab: [facility] [address] [facility] [address] Performing Lab: [place] LEATHA MARILUMoriah [facility] [address] [facility] [address] WBC 5.61 10*3/uL 4.50-11.00 RBC 4.66 10*6/uL 3.93-5.16 HGB 13.7 g/dL 12-15.2 HCT 41.2 36.6-45.6 MCV 88.4 fL 82-99 MCHC 33.3 g/dL 30.8-35.1 PLT 315 10*3/uL 140-360 RDW-CV 12.7 12.0-16.0 [place], Abs 0.49 10*3/uL 0.30-1.10 MCH 29.4 pg 26.2-32.6 Neut % 60.9 43.7-75.8 Lymph % 27.8 14.0-42.3 [place] % 8.7 5.1-13.7 Eos % 1.6 0.4-6.8 Baso % 0.5 0.1-2.0 Neut, Abs 3.41 10*3/uL 2.20-7.60 Lymph, Abs 1.56 10*3/uL 1.00-3.20 Eos, Abs 0.09 10*3/uL 0.03-0.44 Baso, Abs 0.03 10*3/uL 0.01-0.13 Immature Gran % 0.5 0.0-0.7 Immature Gran, Abs 0.03 10*3/uL 0.00-0.06 Vital Signs: All taken on the encounter date This section contains inpatient and outpatient Vital Signs collected on the date of the Encounter. Date/Time Temperature Pulse Blood Pressure Respiratory Rate SP02 Pain Height Weight Body Mass Index Source Apr 09, 2024 11:50 AM 122/78 [facility] Apr 09, 2024 11:16 AM 98.4 66 146/83 14 97 0 195 31 [facility] Social History: Smoking Status (Most current) and Tobacco Use (All prior to encounter date) This section includes the most current, and the historical, smoking and tobacco- related health factors from the [place] facility where the Encounter took place. Current Smoking Status This section includes the most current smoking, or tobacco-related health factor, from the [place] facility where the Encounter took place. Date/Time Current Smoking Status Comment Rick ity Nov 23, 2023 12:07 PM VA-TOBACCO FORMER USER [facility] [place] [facility] Tobacco Use History This section includes a history of the smoking, or tobacco-related health factors, that were collected on or before the date of the Encounter. The data comes from the [place] facility where the Encounter took place. Date/Time Smoking Status/Tobacco Use Comment Hollis acsterling Nov 23, 2023 12:07 PM VA-TOBACCO QUIT 15 YRS OR MORE [facility] [place] [facility] Jul 13, 2022 10:30 AM VA-TOBACCO NEVER USED [facility] [place] [facility] Jun 09, 2021 11:00 AM VA-TOBACCO NEVER USED [facility] [place] [facility] Feb 20, 2020 03:16 PM VA-TOBACCO NEVER USED [facility] [place] [facility] Feb 11, 2019 10:08 AM VA-TOBACCO NEVER USED [facility] [place] [facility] March 07, 2018 09:17 AM LIFETIME NON-TOBACCO USER [facility] [place] [facility] Jun 01, 2016 10:04 AM LIFETIME NON-TOBACCO USER [facility] [place] [facility] Jun 12, 2012 10:28 AM LIFETIME NON-TOBACCO USER [facility] [place] [facility]
--- OUTSIDE RECORDS SUMMARY | 2024-11-19 13:29 | XMS_ITS ---
Author Name [facility] [place] Organization [facility] [place] Address [address] [place] [address] Care Team Providers Care Pillowcase Cutter Name Role Phone CHELA BELL Primary Care Provider Unavailabl e Selected Encounter This section includes the information on record at [place] for the Encounter. Date/Time Encounter Type Encounter Description Reason Pro vider Source May 01, 2024 02:45 PM Outpatient Encounter PRIMARY CARE/MEDICINE I[facility] Encounter Template Text not used by [...] - MEDICINE [facility] [place] [facility] Jul 17, 2024 09:00 AM AMBULATORY - MEDICINE [facility] [place] [facility] Aug 14, 2024 10:00 AM AMBULATORY - SURGERY [facility] [place] [facility] Aug 14, 2024 11:00 AM AMBULATORY - SURGERY [facility] [place] [facility] Aug 30, 2024 01:15 PM AMBULATORY - NONE [facility] [place] [facility] Oct 16, 2024 03:00 PM AMBULATORY [...] Range Comment Apr 09, 2024 12:56 PM [facility] LIPID PANEL FASTING Specimen Type: SERUM No comment entered. Ordering Provider: CHELA BELL Report Released Date/Time: Apr 09, 2024 11:38 AM Reporting Lab: [address] [address] Performing Lab: [address] [address] CHOLESTEROL 198 mg/dL TRIGLYCERIDE 97 mg/dL 0-150 LDL calculated 113 mg/dL 0-129 CHOL/HDL 3.0 HDL CHOLESTEROL 66 mg/dL H 40-60 Apr 09, 2024 12:56 PM [facility] BASIC METABOLIC PANEL (non-fasting) Specimen Type: SERUM No comment entered. Ordering Provider: CHELA BELL Report Released Date/Time: Apr 09, 2024 11:38 AM Reporting Lab: [address] [address] Performing Lab: [address] [address] UREA NITROGEN 18 mg/dL 7-25 GLUCOSE 91 mg/dL 65-100 SODIUM 139 mmol/L 135-145 POTASSIUM 4.0 mmol/L 3.5-5.0 CHLORIDE 103 mmol/L 100-110 CO2 26 meq/L 20-30 CREATININE, Serum 0.80 mg/dL 0.50-1.40 eGFR(CKD-EPI 2020) 83 mL/min >60 Apr 09, 2024 12:56 PM [facility] LIVER FUNCTION Specimen Type: SERUM No comment entered. Ordering Provider: CHELA BELL Report Released Date/Time: Apr 09, 2024 11:38 AM Reporting Lab: [facility] [address] [facility] [address] Performing Lab: [facility] [address] [facility] [address] PROTEIN,TOTAL 6.3 g/dL 6.0-8.3 ALBUMIN 4.1 g/dL 3.5-5.0 ALKALINE PHOSPHATASE 63 U/L 40-150 AST 16 U/L 5-34 ALT 16 U/L BILIRUBIN, TOTAL 0.7 mg/dL 0.2-1.2 Apr 09, 2024 12:56 PM [facility] HEMOGLOBIN A1C PANEL Specimen Type: BLOOD [...] Apr 09, 2024 11:38 AM Reporting Lab: [facility] [address] [facility] [address] Performing Lab: [address] [address] HEMOGLOBIN A1C 5.5 4.0-5.6 Apr 09, 2024 12:56 PM [facility] TSH Specimen Type: SERUM No comment entered. Ordering Provider: CHELA BELL Report Released Date/Time: Apr 09, 2024 11:38 AM Reporting Lab: [facility] [address] [facility] [address] Performing Lab: [address] [address] TSH 2.17 u[IU]/mL 0.35-5.00 Apr 09, 2024 12:56 PM [facility] CBC AND DIFF (AUTO) Specimen Type: BLOOD No comment entered. Ordering Provider: CHELA BELL Report Released Date/Time: Apr 09, 2024 11:38 AM Reporting Lab: [facility] [address] [facility] [address] Performing Lab: [facility] [address] [facility] [address] WBC 5.61 10*3/uL 4.50-11.00 RBC 4.66 10*6/uL 3.93-5.16 HGB 13.7 g/dL 12-15.2 HCT 41.2 36.6-45.6 MCV 88.4 fL 82-99 MCHC 33.3 g/dL 30.8-35.1 PLT 315 10*3/uL 140-360 RDW-CV 12.7 12.0-16.0 [place], Abs 0.49 10*3/uL 0.30-1.10 MCH 29.4 pg 26.2-32.6 Neut % 60.9 43.7-75.8 Lymph % 27.8 14.0-42.3 [place] % 8.7 5.1-13.7 Eos % 1.6 0.4-6.8 [...] took place. Date/Time Current Smoking Status Comment iRck rodriguesy Nov 23, 2023 12:07 PM VA-TOBACCO FORMER USER [facility] Tobacco Use History This section includes a history of the smoking, or tobacco-related health factors, that were collected on or before the date of the Encounter. The data comes from the [place] facility where the Encounter took place. Date/Time Smoking Status/Tobacco Use Comment F acility Nov 23, 2023 12:07 PM VA-TOBACCO QUIT 15 YRS OR MORE [facility] [place] [facility] Jul 13, 2022 10:30 AM VA-TOBACCO NEVER USED [facility] [place] [facility] Jun 09, 2021 11:00 AM VA-TOBACCO NEVER USED [facility] [place] [facility] Feb 20, 2020 03:16 PM VA-TOBACCO NEVER USED [facility] [place] [facility] Feb 11, 2019 10:08 AM VA-TOBACCO NEVER USED [facility] [place] [facility] March 07, 2018 09:17 AM LIFETIME NON-TOBACCO USER [facility] [place] [facility] Jun 01, 2016 10:04 AM LIFETIME NON-TOBACCO USER [facility] [place] [facility] Jun 12, 2012 10:28 AM LIFETIME NON-TOBACCO USER [facility] [place] [facility] Encounter Notes: All associated encounter notes This section contains the clinical notes associated to the Encounter. Date/Time Encounter Note(s) Provider Source May 01, 2024 02:50 PM LETTERS: LOCAL TITLE: PATIENT LETTER (T) STANDARD TITLE: LETTERS DATE OF NOTE: MAY 01, 2024@14:50 ENTRY DATE: MAY 01, 2024@14:50:26 AUTHOR: KAMILA LAY COSIGNER: URGENCY: STATUS: COMPLETED DEPARTMENT OF [facility] Toll Free Number Primary Care Telephone Assistance can be reached at extension [phone] [facility] scheduling can be reached at extension [phone] [facility] scheduling can be reached at ext [phone] ELXUS BATISTA [address], [place], [address] May 01, 2024 Dear Coral Batista, Thank you for having your mammogram done. I have received the results of the mammogram performed on April 24, 2024 at [facility] and the study was normal (BI-RADS 1, Density B). According to the recommendations of the [employer], you can have this study repeated in 2 years. If you prefer to have it done in a year, please let us know. If you have any changes to your breasts or any concerns, please call to have an exam. Please feel free to call with any questions at [phone]. Sincerely, JANET [facility] [place], [place] Sincerely, Your Primary Care Team [facility] [address] [facility] [address] [place] [address] [place] [address] [phone] [facility] [address] [place] [address] [place] [address] [phone] [facility] [address] [facility] [place] [address] [place] [address] [phone] KAMILA LAY [facility] May 01, 2024 02:45 PM [facility] NOTE : LOCAL TITLE: SMART BREAST IMAGING FOLLOW-UP STANDARD TITLE: [facility] NOTE DATE OF NOTE: MAY 01, 2024@14:45 ENTRY DATE: MAY 01, 2024@14:46:03 AUTHOR: KAMILA LAY EXP COSIGNER: URGENCY: STATUS: COMPLETED Record prior or outside mammogram: Written Report Available Outside report Received on: May 01, 2024 Location: [facility] Screening Breast Tomosynthesis Date: April 24, 2024 Patient does not have dense breast tissue Interpretation of results and decision making Summary of results: BIRAD 1,Density B Radiologist recommends the following: Return for screening mammogram in two years Method patient contacted by: Registered Letter Date: May 01, 2024 Additional Information: Additional Information: /sundeep/ Kamila Lay RN, BSN Women's Healthcare Navigator, RN Signed: 05/01/2024 14:49 Receipt Acknowledged By: 05/06/2024 10:08 /sundeep/ ROOSEVELT PAZ JUNIOR ACCOUNTING CLERK KAMILA LAY CNTL [facility]
--- OUTSIDE RECORDS SUMMARY | 2024-11-19 13:29 | XMS_ITS | Encounter Summary ---
Author Name [facility] [facility] [place] [facility] [place] Address [address] [place] [address] Care Team Providers Care Identification Clerk Name Role Phone CHELA BELL Primary Care Provider Unavailabl e Selected Encounter This section includes the information on record at [place] for the Encounter. Date/Time Encounter Type Encounter Description Reason Provider Source Nov 23, 2023 12:07 PM OFF/OP EST MARCH X REQ PHY/QHP PRIMARY CARE/MEDICINE ICD-10-CM Z71.9 Counseling, unspecified COURTNEY ARMSTRONG Jcarlos Encounter Template Text not used by [place] Assessments - Encounter Diagnoses This section includes the primary and secondary diagnoses documented for the Encounter. Date/Time Primary/Secondary Diagnosis Diagnosis Name Provider Source Dec 06, 2023 10:57 AM PRIMARY Counseling, unspecified COURTNEY ARMSTRONG [facility] Plan of Treatment: Future Appointments (+ 6 months) and Future Tests (+/- 45 days) The Plan of Treatment section includes future care activities for the patient from all [place] treatmentfacilities. This section includes future appointments and future orders which are active, pending or scheduled. Future Appointments This section includes appointments that were scheduled to occur 6 months from the date of the Encounter, up to a maximum of 20 appointments. The data comes from all [place] treatment facilities. Appointment Date/Time Appointment Type Appointme nt Facility Name Dec 06, 2023 11:00 AM AMBULATORY - MEDICINE [facility] March 20, 2024 09:00 AM [facility] [place] [facility] Apr 09, 2024 11:00 AM [facility] [place] [facility] [place] [facility] Apr 24, 2024 08:15 AM [place] [facility] [place] [facility] Vital Signs: All taken on the encounter date This section contains inpatient and outpatient Vital Signs collected on the date of the Encounter. Date/Time Temperature Pulse Blood Pressure Respiratory Rate SP02 Pain Height Weight Body Mass Index Source Nov 23, 2023 12:13 PM 99.4 F 79 /min 145/77 mm[Hg] 16 /min 100 % 2 [facility] [place] [facility] Social History: Smoking Status (Most current) and Tobacco Use (All prior to encounter date) This section includes the most current, and the historical, smoking and tobacco- related health factors from the [place] facility where the Encounter took place. Current Smoking Status This section includes the most current smoking, or tobacco-related health factor, from the [place] facility where the Encounter took place. Date/Time Current Smoking Status Comment Facil raviy Nov 23, 2023 12:07 PM VA-TOBACCO FORMER USER [place] [facility] [place] [facility] Tobacco Use History This section includes a history of the smoking, or tobacco-related health factors, that were collected on or before the date of the Encounter. The data comes from the [place] facility where the Encounter took place. Date/Time Smoking Status/Tobacco Use Comment F dean Nov 23, 2023 12:07 PM VA-TOBACCO QUIT 15 YRS OR MORE [facility] [place] [place] [facility] Jul 13, 2022 10:30 AM VA-TOBACCO NEVER USED [facility] [place] [place] [facility] Jun 09, 2021 11:00 AM VA-TOBACCO NEVER USED [facility] [place] [facility] Feb 20, 2020 03:16 PM VA-TOBACCO NEVER USED [facility] [place] [facility] Feb 11, 2019 10:08 AM VA-TOBACCO NEVER USED [facility] [place] [facility] March 07, 2018 09:17 AM LIFETIME NON-TOBACCO USER [facility] [place] [facility] Jun 01, 2016 10:04 AM LIFETIME NON-TOBACCO USER [facility] [place] [facility] Jun 12, 2012 10:28 AM LIFETIME NON-TOBACCO USER [facility] [place] [facility] Encounter Notes: All associated encounter notes This section contains the clinical notes associated to the Encounter. Date/Time Encounter Note(s) Provider Source Nov 23, 2023 12:07 PM PREVENTIVE MEDICIN E NURSING NOTE: LOCAL TITLE: CLINICAL REMINDERS/NURSING STANDARD TITLE: PREVENTIVE MEDICINE NURSING NOTE DATE OF NOTE: NOV 23, 2023@12:07 ENTRY DATE: NOV 23, 2023@12:07:56 AUTHOR: COURTNEY ARMSTRONG COSIGNER: URGENCY: STATUS: COMPLETED Advance Directive Screen MH AD: Patient does not have a completed advance directive on file at any facility, [place] or outside. S/he is not interested in completing one at this time. The patient received education about Advance Directives and written notification of his/her rights. Suicide Screen: C-SSRS Screening [place] Suicide Severity Rating Scale (C-SSRS) screener 1. Over the past month, have you wished you were or wished you could go to sleep and not wake up? No 2. Over the past month, have you had any actual thoughts of killing yourself? No 3. Over the past month, have you been thinking about how you might do this? Response not required due to responses to other questions. 4. Over the past month, have you had these thoughts and had some intention of acting on them? Response not required due to responses to other questions. 5. Over the past month, have you started to work out or worked out the details of how to kill yourself? Response not required due to responses to other questions. 6. If yes, at any time in the past month did you intend to carry out this plan? Response not required due to responses to other questions. 7. In your lifetime, have you ever done anything, started to do anything, or prepared to do anything to end your life (for example, collected pills, obtained a gun, gave away valuables, went to the roof but didn't jump)? No 8. If YES, was this within the past 3 months? Response not required due to responses to other questions. Homelessness/Food Insecurity Screen: In the past 2 months, have you been living in stable housing that you own, rent, or stay in as part of a household? Yes - Living in stable housing. Are you worried or concerned that in the next 2 months you may NOT have stable housing that you own, rent, or stay in as part of a household? No - Not worried about housing near future The reports the following: Within the past 12 months, you worried whether your food would run out before you got money to buy more. Never true Within the past 12 months, the food you bought just didn't last and you didn't have money to get more. Never true Depression Screening: Perform PHQ-2 A PHQ-2 screen was performed. The score was 0 which is a negative screen for depression. Over the past two weeks, how often have you been bothered by the following problems? 1. Little interest or pleasure in doing things Not at all 2. Feeling down, depressed, or hopeless Not at all Tobacco Use Screening: The patient is a former tobacco user. The patient quit fifteen or more years ago. Influenza Immunization: The patient declines to receive the recommended dose of seasonal influenza vaccine. Immunization: INFLUENZA, UNSPECIFIED FORMULATION Refusal Reason: PATIENT DECISION Patient refuses all immunization(s) in the FLU group Date Documented: 11/23/23 12:10 Alcohol Use Screen (AUDIT-C): Alcohol Screen: SCREEN FOR ALCOHOL (AUDIT-C) An alcohol screening test (AUDIT-C) was negative (score=1). 1. How often did you have a drink containing alcohol in the past year? Consider a drink to be a 12 ounce can or bottle of regular beer, 8 ounces of malt liquor, a 5 ounce glass of table wine, or a 1.5 ounce shot of liquor (like scotch, gin, or vodka). Monthly or less 2. How many drinks containing alcohol did you have on a typical day when you were drinking in the past year? One or two drinks 3. How often did you have 4 or more drinks on one occasion in the past year? Never COVID-19 Immunization: Refused Moderna Monovalent COVID-19 vaccine Immunization: COVID-19 (MODERNA), MRNA, LNP-S, PF, 50 MCG/0.5 ML (AGES 12+ YEARS) Refusal Reason: PATIENT DECISION Patient refuses all immunization(s) in the COVID-19 group Date Documented: 11/23/23 12:10 Herpes Zoster (Shingles) Vaccine: The patient declines to receive the recommended dose of zoster (shingles) vaccine. Immunization: ZOSTER RECOMBINANT Refusal Reason: PATIENT DECISION Patient refuses all immunization(s) in the ZOSTER group Date Documented: 11/23/23 12:11 /sundeep/ COURTNEY ARMSTRONG, MSN, RN, CNL PRIMARY CARE TEAM NURSE Signed: 11/23/2023 12:12 COURTNEY ARMSTRONG [facility]
--- OUTSIDE RECORDS SUMMARY | 2024-11-19 13:29 | XMS_ITS ---
Author Name [facility] [place] [place] Organization [facility] [place] Address [address] [place] [address] Care Team Providers Care Environmental Engineering Manager Name Role Phone CHELA BELL Primary Care Provider Unavailabl e Selected Encounter This section includes the information on record at [place] for the Encounter. Date/Time Encounter Type Encounter Description Reason Pro vider Source Dec 14, 2023 04:10 PM Outpatient Encounter ADMIN PAT ACTIVTIES (MASNONCT) IHE Encounter Template Text not used by [place] Plan of Treatment: Future Appointments (+ 6 months) and Future Tests (+/- 45 days) The Plan of Treatment section includes future care activities for the patient from all [place] treatmentfacilities. This section includes future appointments and future orders which are active, pending or scheduled. Future Appointments This section includes appointments that were scheduled to occur 6 months from the date of the Encounter, up to a maximum of 20 appointments. The data comes from all [place] treatment facilities. Appointment Date/Time Appointment Type Appointme nt Facility Name March 20, 2024 09:00 AM AMBULATORY - MEDICINE [facility] [place] [facility] Apr 09, 2024 11:00 AM AMBULATORY - MEDICINE [facility] [place] [facility] Apr 24, 2024 08:15 AM [place]ORY [place]IC[place] [facility] [place] [facility] Jun 11, 2024 11:30 AM [facility] Social History: Smoking Status (Most current) and Tobacco Use (All prior to encounter date) This section includes the most current, and the historical, smoking and tobacco- related health factors from the [place] facility where the Encounter took place. Current Smoking Status This section includes the most current smoking, or tobacco-related health factor, from the [place] facility where the Encounter took place. Date/Time Current Smoking Status Comment Rick rodriguesy Nov 23, 2023 12:07 PM VA-TOBACCO QUIT 15 YRS OR MORE [place] [facility] [place] [facility] Tobacco Use History This section includes a history of the smoking, or tobacco-related health factors, that were collected on or before the date of the Encounter. The data comes from the [place] facility where the Encounter took place. Date/Time Smoking Status/Tobacco Use Comment F dean Nov 23, 2023 12:07 PM VA-TOBACCO QUIT 15 YRS OR MORE [facility] [place] [facility] Jul 13, 2022 10:30 AM VA-TOBACCO NEVER USED [facility] [place] [facility] Jun 09, 2021 11:00 AM VA-TOBACCO NEVER USED [facility] [place] [facility] Feb 20, 2020 03:16 PM VA-TOBACCO NEVER USED [facility] [place] [facility] Feb 11, 2019 10:08 AM VA-TOBACCO NEVER USED [facility] [place] [facility] March 07, 2018 09:17 AM LIFETIME NON-TOBACCO USER [facility] [place] [facility] Jun 01, 2016 10:04 AM LIFETIME NON-TOBACCO USER [facility] [place] [facility] Jun 12, 2012 10:28 AM LIFETIME NON-TOBACCO USER [place] [facility] [place] [facility] Encounter Notes: All associated encounter notes This section contains the clinical notes associated to the Encounter. Date/Time Encounter Note(s) Provider Source Dec 14, 2023 04:10 PM ADMINISTRATIVE NOT E: LOCAL TITLE: CCC: SCHEDULING ADMINISTRATION STANDARD TITLE: ADMINISTRATIVE NOTE DATE OF NOTE: DEC 14, 2023@16:10:24 ENTRY DATE: DEC 14, 2023@16:10:24 AUTHOR: ADAN SAMANIEGO COSIGNER: URGENCY: STATUS: COMPLETED Patient Demographics Patient Name: LEXUS DASILVA Patient Primary Phone: [phone] Patient Primary [address]: [address] [place] [id number] Patient : 1960 Patient Age: 63 Current Location: Call Back Number: [phone]- all day Caller/Recipient Relation to Patient: Self Scheduling Patient Expects Callback: No Administrative Administrative Note Reason: Returned Call Administrative Note Comments: Per [facility] audiovisual aids technician note- addendum Library Circulation Technician unable to assist no clinician found in PCMM banner matching name to assist with appt or RTC in scheduler maintenance /sundeep/ ADAN SAMANIEGO CDA/AMSA Signed: 12/14/2023 16:10 Receipt Acknowledged By: 12/15/2023 08:12 /es/ SUKHI SALINAS Advanced Encyclopedia Research Worker 12/15/2023 09:10 /sundeep/ Columba Dillon RN Primary Care Staff Nurse ADAN SAMANIEGOEMORY [facility]
--- OUTSIDE RECORDS SUMMARY | 2024-11-19 13:29 | XMS_ITS ---
Author Name [facility] [place] [place] Organization [facility] [place] Address [address] [place] [address] Care Team Providers Care Choke Reamer Name Role Phone CHELA BELL Primary Care Provider Unavailabl e Selected Encounter This section includes the information on record at [place] for the Encounter. Date/Time Encounter Type Encounter Description Reason Pro vider Source Apr 08, 2024 01:20 PM Outpatient Encounter PRIMARY CARE/MEDICINE IHE Encounter Template Text not used by [place] Plan of Treatment: Future Appointments (+ 6 months) and Future Tests (+/- 45 days) The Plan of Treatment section includes future care activities for the patient from all [place] treatmentfacilities. This section includes future appointments and future orders which are active, pending or scheduled. Future Appointments This section includes appointments that were scheduled to occur 6 months from the date of the Encounter, up to a maximum of 20 appointments. The data comes from all [place] treatment facilities. Appointment Date/Time Appointment Type Appointme nt Facility Name Apr 09, 2024 11:00 AM AM[facility]ULATORY [facility]IC[facility] [place] [place] [facility] Apr 24, 2024 08:15 AM AM[facility]ULATORY - MEDICINE [facility] [place] [place] [facility] Jun 11, 2024 11:30 AM AMBULATORY [...] 30, 2024 01:15 PM AMBULATORY - NONE [facility] Lab Results: +/- 30 days [...] Range Comment Apr 09, 2024 12:56 PM [facility] BASIC METABOLIC PANEL (non-fasting) Specimen Type: SERUM No comment entered. Ordering Provider: CHELA BELL Report Released Date/Time: Apr 09, 2024 11:38 AM Reporting Lab: [facility] [address] [facility] [address] Performing Lab: [address] [address] UREA NITROGEN 18 mg/dL 7-25 GLUCOSE 91 mg/dL 65-100 SODIUM 139 mmol/L 135-145 POTASSIUM 4.0 mmol/L 3.5-5.0 CHLORIDE 103 mmol/L 100-110 CO2 26 meq/L 20-30 CREATININE, Serum 0.80 mg/dL 0.50-1.40 eGFR(CKD-EPI 2020) 83 mL/min >60 Apr 09, 2024 12:56 PM [facility] LIPID PANEL FASTING Specimen Type: SERUM No comment entered. Ordering Provider: CHELA BELL Report Released Date/Time: Apr 09, 2024 11:38 AM Reporting Lab: [facility] [address] [facility] [address] Performing Lab: [address] [address] CHOLESTEROL 198 mg/dL TRIGLYCERIDE 97 mg/dL 0-150 LDL calculated 113 mg/dL 0-129 CHOL/HDL 3.0 HDL CHOLESTEROL 66 mg/dL H 40-60 Apr 09, 2024 12:56 PM [facility] LIVER FUNCTION Specimen Type: SERUM No comment entered. Ordering Provider: CHELA BELL Report Released Date/Time: Apr 09, 2024 11:38 AM Reporting Lab: [facility] [address] [facility] [address] Performing Lab: [address] [address] PROTEIN,TOTAL 6.3 g/dL 6.0-8.3 ALBUMIN 4.1 g/dL 3.5-5.0 ALKALINE PHOSPHATASE 63 U/L 40-150 AST 16 U/L 5-34 ALT 16 U/L BILIRUBIN, TOTAL 0.7 mg/dL 0.2-1.2 Apr 09, 2024 12:56 PM [facility] HEMOGLOBIN A1C PANEL Specimen Type: BLOOD [...] Apr 09, 2024 11:38 AM Reporting Lab: [address] [address] Performing Lab: [address] [address] HEMOGLOBIN A1C 5.5 4.0-5.6 Apr 09, 2024 12:56 PM [facility] CBC AND DIFF (AUTO) Specimen Type: BLOOD No comment entered. Ordering Provider: CHELA BELL Report Released Date/Time: Apr 09, 2024 11:38 AM Reporting Lab: [address] [address] Performing Lab: [address] [address] WBC 5.61 10*3/uL 4.50-11.00 RBC 4.66 10*6/uL 3.93-5.16 HGB 13.7 g/dL 12-15.2 HCT 41.2 36.6-45.6 MCV 88.4 fL 82-99 MCHC 33.3 g/dL 30.8-35.1 PLT 315 10*3/uL 140-360 RDW-CV 12.7 12.0-16.0 King, Abs 0.49 10*3/uL 0.30-1.10 MCH 29.4 pg 26.2-32.6 Neut % 60.9 43.7-75.8 Lymph % 27.8 14.0-42.3 King % 8.7 5.1-13.7 Eos % 1.6 0.4-6.8 Baso % 0.5 0.1-2.0 Neut, Abs 3.41 10*3/uL 2.20-7.60 Lymph, Abs 1.56 10*3/uL 1.00-3.20 Eos, Abs 0.09 10*3/uL 0.03-0.44 Baso, Abs 0.03 10*3/uL 0.01-0.13 Immature Gran % 0.5 0.0-0.7 Immature Gran, Abs 0.03 10*3/uL 0.00-0.06 Apr 09, 2024 12:56 PM [facility] TSH Specimen Type: SERUM No comment entered. Ordering Provider: CHELA BELL Report Released Date/Time: Apr 09, 2024 11:38 AM Reporting Lab: [facility] [address] [facility] [address] Performing Lab: [address] [address] TSH 2.17 u[IU]/mL 0.35-5.00 Social History: Smoking Status (Most current) and Tobacco Use (All prior to encounter date) This section includes the most current, and the historical, smoking and tobacco- related health factors from the [place] facility where the Encounter took place. Current Smoking Status This section includes the most current smoking, or tobacco-related health factor, from the [place] facility where the Encounter took place. Date/Time Current Smoking Status Comment Facil marli Nov 23, 2023 12:07 PM VA-TOBACCO QUIT 15 YRS OR MORE [facility] Tobacco Use History This section includes a history of the smoking, or tobacco-related health factors, that were collected on or before the date of the Encounter. The data comes from the [place] facility where the Encounter took place. Date/Time [...] Encounter. Date/Time Encounter Note(s) Provider Source Apr 08, 2024 01:20 PM PRIMARY CARE TELEP CYN ENCOUNTER NOTE: LOCAL TITLE: TELEPHONE NOTE/PRIMARY CARE STANDARD TITLE: PRIMARY CARE TELEPHONE ENCOUNTER NOTE DATE OF NOTE: APR 08, 2024@13:20 ENTRY DATE: APR 08, 2024@13:20:37 AUTHOR: SUKHI SALINAS EXP COSIGNER: URGENCY: STATUS: COMPLETED MSA spoke with as a reminder of 6/4 PCP appt. /sundeep/ SUKHI SALINAS Advanced Personal Financial Advisor Signed: 04/08/2024 13:21 SUKHI SALINAS [place] [facility] [place] [facility]
--- OUTSIDE RECORDS SUMMARY | 2024-11-19 13:29 | XMS_ITS ---
Author Name [facility] [place] [place] Organization [facility] [place] Address [address] [place] [address] Care Team Providers Care Lacrosse Coach Name Role Phone CHELA BELL Primary Care Provider Unavailabl e Selected Encounter This section includes the information on record at [place] for the Encounter. Date/Time Encounter Type Encounter Description Reason Pro vider Source March 27, 2024 10:09 AM Outpatient Encounter ADMIN PAT ACTIVTIES (MASNONCT) IHE [...] 09, 2024 11:00 AM AMBULATORY - [place]ICINE [place] [facility] [facility] Apr 24, 2024 08:15 AM AM[place]UL[place]ORY [place]ICINE [place] [facility] [place] [facility] Jun 11, 2024 11:30 AM AM[place]ICINE [place] [facility] [place] [facility] Jul 17, 2024 09:00 AM AM[place]ORY [place]ICINE [place] [facility] [place] [facility] Aug 14, 2024 10:00 AM AM[place]UL[place]ORY [place]GERY [place] [facility] [facility] Aug 14, 2024 11:00 AM AMBULATORY - SURGERY [facility] Aug 30, 2024 01:15 PM AMBULATORY - NONE [facility] Lab Results: +/- 30 days of [...] Range Comment Apr 09, 2024 12:56 PM [facility] LIPID PANEL FASTING Specimen Type: SERUM No comment entered. Ordering Provider: CHELA BELL Report Released Date/Time: Apr 09, 2024 11:38 AM Reporting Lab: [address] [address] Performing Lab: [address] [address] CHOLESTEROL 198 mg/dL TRIGLYCERIDE 97 mg/dL 0-150 LDL calculated 113 mg/dL 0-129 CHOL/HDL 3.0 HDL CHOLESTEROL 66 mg/dL H 40-60 Apr 09, 2024 12:56 PM [facility] BASIC METABOLIC PANEL (non-fasting) Specimen Type: SERUM No comment entered. Ordering Provider: CHELA BELL Report Released Date/Time: Apr 09, 2024 11:38 AM Reporting Lab: [address] [address] Performing Lab: [address] [address] UREA NITROGEN 18 mg/dL 7-25 GLUCOSE 91 mg/dL 65-100 SODIUM 139 mmol/L 135-145 POTASSIUM 4.0 mmol/L 3.5-5.0 CHLORIDE 103 mmol/L 100-110 CO2 26 meq/L 20-30 CREATININE, Serum 0.80 mg/dL 0.50-1.40 eGFR(CKD-EPI 2020) 83 mL/min >60 Apr 09, 2024 12:56 PM [facility] LIVER FUNCTION Specimen Type: SERUM No comment entered. Ordering Provider: CHELA BELL Report Released Date/Time: Apr 09, 2024 11:38 AM Reporting Lab: [facility] [address] [facility] [address] Performing Lab: [address] [address] PROTEIN,TOTAL 6.3 g/dL 6.0-8.3 ALBUMIN 4.1 g/dL 3.5-5.0 ALKALINE PHOSPHATASE 63 U/L 40-150 AST 16 U/L 5-34 ALT 16 U/L BILIRUBIN, TOTAL 0.7 mg/dL 0.2-1.2 Apr 09, 2024 12:56 PM [facility] HEMOGLOBIN A1C PANEL Specimen Type: BLOOD [...] Apr 09, 2024 11:38 AM Reporting Lab: [address] [address] Performing Lab: [address] [address] HEMOGLOBIN A1C 5.5 4.0-5.6 Apr 09, 2024 12:56 PM [facility] TSH Specimen Type: SERUM No comment entered. Ordering Provider: CHELA BELL Report Released Date/Time: Apr 09, 2024 11:38 AM Reporting Lab: [address] [address] Performing Lab: [address] [address] TSH 2.17 u[IU]/mL 0.35-5.00 Apr 09, 2024 12:56 PM [facility] CBC AND DIFF (AUTO) Specimen Type: BLOOD No comment entered. Ordering Provider: CHELA BELL Report Released Date/Time: Apr 09, 2024 11:38 AM Reporting Lab: [facility] [address] [facility] [address] Performing Lab: [facility] [address] [facility] [address] WBC 5.61 10*3/uL 4.50-11.00 RBC 4.66 10*6/uL 3.93-5.16 HGB 13.7 g/dL 12-15.2 HCT 41.2 36.6-45.6 MCV 88.4 fL 82-99 MCHC 33.3 g/dL 30.8-35.1 PLT 315 10*3/uL 140-360 RDW-CV 12.7 12.0-16.0 Ford, Abs 0.49 10*3/uL 0.30-1.10 MCH 29.4 pg 26.2-32.6 Neut % 60.9 43.7-75.8 Lymph % 27.8 14.0-42.3 Ford % 8.7 5.1-13.7 Eos % 1.6 0.4-6.8 [...] 23, 2023 12:07 PM VA-TOBACCO FORMER USER [facility] Tobacco Use History This section includes a history of the smoking, or tobacco-related health factors, that were collected on or before the date of the Encounter. The data comes from the [place] facility where the Encounter took place. Date/Time Smoking Status/Tobacco Use Comment F acility Nov 23, 2023 12:07 PM VA-TOBACCO QUIT 15 YRS OR MORE [place] [facility] [place] [facility] Jul 13, 2022 10:30 AM VA-TOBACCO NEVER USED [place] [facility] [place] [facility] Jun 09, 2021 11:00 AM VA-TOBACCO NEVER USED [place] [facility] [place] [facility] Feb 20, 2020 03:16 PM VA-TOBACCO NEVER USED [place] [facility] [place] [facility] Feb 11, 2019 10:08 AM VA-TOBACCO NEVER USED [place] [facility] [facility] March 07, 2018 09:17 AM LIFETIME NON-TOBACCO USER [place] [facility] [place] [facility] Jun 01, 2016 10:04 AM LIFETIME NON-TOBACCO USER [place] [facility] [place] [facility] Jun 12, 2012 10:28 AM LIFETIME NON-TOBACCO USER [place] [facility] [place] [facility] Encounter Notes: All associated encounter notes This section contains the clinical notes associated to the Encounter. Date/Time Encounter Note(s) Provider Source March 27, 2024 10:09 AM ADMINISTRATIVE NOTE: LOCAL TITLE: CCC: SCHEDULING ADMINISTRATION STANDARD TITLE: ADMINISTRATIVE NOTE DATE OF NOTE: MARCH 27, 2024@10:09 ENTRY DATE: MARCH 27, 2024@10:09:25 AUTHOR: HARRISON DOUGHERTY EXP COSIGNER: URGENCY: STATUS: COMPLETED MEDICATION RENEWAL Medication renewal method: Phone Medication renewal requester: Patient The name(s) of the medication(s) is/are: HYDROCHLOROTHIAZIDE TAB 25MG Patient requesting medication for MAIL ORDER /sundeep/ SILVIA DOUGHERTY Signed: 03/27/2024 10:10 Receipt Acknowledged By: 03/27/2024 16:09 /sundeep/ JANET HOLM Nurse Practitioner 03/27/2024 10:48 /es/ COURTNEY ARMSTRONG, MSN, RN, CNL PRIMARY CARE TEAM NURSE [facility]
--- OUTSIDE RECORDS SUMMARY | 2024-11-19 13:29 | XMS_ITS | Encounter Summary ---
Author Name [facility] [place] [place] Organization [facility] [place] Address [address] [place] [address] Care Team Providers Care Claims Adjustor Name Role Phone CHELA BELL Primary Care Provider Unavailabl e Selected Encounter This section includes the information on record at [place] for the Encounter. Date/Time Encounter Type Encounter Description Reason Pro vider Source Jun 10, 2024 01:35 PM Outpatient Encounter ADMIN PAT ACTIVTIES (MASNONCT) [...] - MEDICINE [place] [facility] [place] [facility] Jul 17, 2024 09:00 AM AMBULATORY [facility] MEDICINE [place] [facility] [place] [facility] Aug 14, 2024 10:00 AM AMBULATORY [place] SURGERY [place] [facility] [place] [facility] Aug 14, 2024 11:00 AM AMBULATORY [place]GERY [place] [facility] [place] [facility] Aug 30, 2024 01:15 PM AMBULATORY - NONE [place] [facility] [place] [facility] Oct 16, 2024 03:00 PM AM[place]UL[place]ORY [place]ICINE [place] [facility] [place] [facility] Social History: Smoking Status (Most current) [...] ity Nov 23, 2023 12:07 PM VA-TOBACCO QUIT 15 YRS OR MORE [place] [facility] [place] [facility] Tobacco Use History This section includes a history of the smoking, or tobacco-related health factors, that were collected on or before the date of the Encounter. The data comes from the [place] facility where the Encounter took place. Date/Time Smoking Status/Tobacco Use Comment [place] de[place] Nov 23, 2023 12:07 PM VA-TOBACCO QUIT 15 YRS OR MORE [place] [facility] [place] [facility] Jul 13, 2022 10:30 AM VA-TOBACCO NEVER USED [place] [facility] [place] [facility] Jun 09, 2021 11:00 AM VA-TOBACCO NEVER USED [place] [facility] [place] [facility] Feb 20, 2020 03:16 PM VA-TOBACCO NEVER USED [place] [facility] [place] [facility] Feb 11, 2019 10:08 AM VA-TOBACCO NEVER USED [place] [facility] [place] [facility] March 07, 2018 09:17 AM LIFETIME NON-TOBACCO USER [place] [facility] [place] [facility] Jun 01, 2016 10:04 AM LIFETIME NON-TOBACCO USER [place] [facility] [place] [facility] Jun 12, 2012 10:28 AM LIFETIME NON-TOBACCO USER [place] [facility] [place] [facility] Encounter Notes: All associated encounter notes This section contains the clinical notes associated to the Encounter. 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 Add PCP for medication renewals Adding AMSA to schedule with PCP follow up appointment /sundeep/ MATT REVELES REGISTERED NURSE Signed: 06/10/2024 15:11 Receipt Acknowledged By: 06/12/2024 15:41 /es/ JANET HOLM Nurse Practitioner 06/10/2024 16:01 /es/ SUKHI SALINAS Advanced Supervisor [place] === --- Original Document --- 06/10/24 CCC: SCHEDULING ADMINISTRATION: Patient Demographics Patient Name: LEXUS DASILVA Patient Primary Phone: [phone] Patient Primary Address: [address] [place] [address] Patient : 1960 Patient Age: 63 Call Back Number: [phone] Caller/Recipient Relation to Patient: Self Scheduling Cannot Complete Scheduling Action Reason: No Appointment Available Requested Service(s): Primary Care Scheduling Note Reason: Cannot Complete Appointment Request Scheduling Note Comments: Vet transferred from triage for 2f2 appt within 3 days with PACT for decreased hearing and cold symptoms. No appointments available, Vet states only has 06/11 and 06/12 off. Kindly assist Open Request: None of the above /es/ DEA TUCKER Signed: 06/10/2024 13:35 Receipt Acknowledged By: 06/10/2024 17:24 /es/ COURTNEY ARMSTRONG, MAYLIN, RN, CNL PRIMARY CARE TEAM NURSE 06/10/2024 15:40 /es/ Columba Dillon RN Primary Care Staff Nurse 06/10/2024 ADDENDUM STATUS: COMPLETED Scheduled. /es/ SUKHI SALINAS Advanced Supervisor [place] Signed: 06/10/2024 16:01 MATT REVELES [place] [facility] Jun 10, 2024 01:35 PM ADMINISTRATIVE NOTE: LOCAL TITLE: CCC: SCHEDULING ADMINISTRATION STANDARD TITLE: ADMINISTRATIVE NOTE DATE OF NOTE: JUN 10, 2024@13:35:07 ENTRY DATE: JUN 10, 2024@13:35:07 AUTHOR: DEA TUCKER COSIGNER: URGENCY: STATUS: COMPLETED CCC: SCHEDULING ADMINISTRATION Has ADDENDA Patient Demographics Patient Name: LEXUS DASILVA Patient Primary Phone: [phone] Patient Primary [address] [address] [place] [id number] Patient : 1960 Patient Age: 63 Call Back Number: [phone] Caller/Recipient Relation to Patient: Self Scheduling Cannot Complete Scheduling Action Reason: No Appointment Available Requested Service(s): Primary Care Scheduling Note Reason: Cannot Complete Appointment Request Scheduling Note Comments: Vet transferred from triage for 2f2 appt within 3 days with PACT for decreased hearing and cold symptoms. No appointments available, Vet states only has 06/11 and 06/12 off. 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 Add PCP for medication renewals Adding AMSA to schedule with PCP follow up appointment /es/ MATT REVELES REGISTERED NURSE Signed: 06/10/2024 15:11 Receipt Acknowledged By: * AWAITING SIGNATURE * CHELA BELL 06/10/2024 16:01 /es/ SUKHI SALINAS Advanced Supervisor [place] 06/10/2024 ADDENDUM STATUS: COMPLETED Scheduled. /sundeep/ SUKHI SALINAS Advanced Supervisor [place] Signed: 06/10/2024 16:01 DEA TUCKER [place] [facility]
--- OUTSIDE RECORDS SUMMARY | 2024-11-19 13:29 | XMS_ITS ---
Author Name [facility] [place] Organization [facility] [place] Address [address] [place] [address] Care Team Providers Care Roping Machine Tender Name Role Phone CHELA BELL Primary Care Provider Unavailabl e Selected Encounter This section includes the information on record at [place] for the Encounter. Date/Time Encounter Type Encounter Description Reason Provider Source Jun 11, 2024 11:30 AM OFFICE O/P EST MOD 30 MIN PRIMARY CARE/MEDICINE ICD-10-CM J30.89 Other allergic rhinitis CHELA BELL [facility] Encounter Template Text not used by [place] Assessments - Encounter Diagnoses This section includes the primary and secondary diagnoses documented for the Encounter. Date/Time Primary/Secondary Diagnosis Diagnosis Name Provider Source Jun 11, 2024 12:24 PM PRIMARY Other allergic rhinitis CHELA BELL [facility] Plan of Treatment: Future Appointments (+ [...] Date/Time Appointment Type Appointme nt Facility Name Jul 17, 2024 09:00 AM [facility] [place] [facility] Aug 14, 2024 10:00 AM [facility] [place] [facility] [place] [facility] Aug 14, 2024 11:00 AM AMBULATORY - [place]GERY [place] [facility] [place] [facility] Aug 30, 2024 01:15 PM AMBULATORY - NONE [place] [facility] [place] [facility] Oct 16, 2024 03:00 PM AMBULATORY - MEDICINE [place] [facility] [place] [facility] Vital Signs: All taken on the encounter date This section contains inpatient and outpatient Vital Signs collected on the date of the Encounter. Date/Time Temperature Pulse Blood Pressure Respiratory Rate SP02 Pain Height Weight Body Mass Index Source Jun 11, 2024 11:30 AM 97.1 81 149/81 16 97 194 30 [place] [facility] [facility] Social History: Smoking Status (Most current) and [...] 12, 2012 10:28 AM LIFETIME NON-TOBACCO USER [place] [facility] Encounter Notes: All associated encounter notes This section contains the clinical notes associated to the Encounter. Date/Time Encounter Note(s) Provider Source Jun 11, 2024 11:35 AM PRIMARY CARE NURSE PRACTITIONER OUTPATIENT NOTE: LOCAL TITLE: NURSE PRACTITIONER OUTPATIENT NOTE STANDARD TITLE: PRIMARY CARE NURSE PRACTITIONER OUTPATIENT NOTE DATE OF NOTE: JUN 11, 2024@11:35 ENTRY DATE: JUN 11, 2024@11:35:46 AUTHOR: CHELA BELL EXP COSIGNER: URGENCY: STATUS: COMPLETED Chief complaint: Pt is a 63 who comes in for follow up of medical problems as noted below. HPI: her with ongoing ear congestion and pressure bilaterally she has h/o chronic allergic rhinitis also with h/o recurrent sinusitis, she had been advised to take Antihistamines and had tried Zyrtec in past most recently was suggested to change to loratadine she has Flonase and takes only once in a while but nothing seems to help her ear congestion and pressure she is reluctant to take Sudafed sometimes makes HR elevated but is fine with trying some OTC remedies to see. She also had been traveling to [place] and did whiskey taking that resulted in sore throat and slight cough she has never known if having GERD and no obvious sx but amenable to trying a PPI to see if any acid contributing to sore throats and increase cough/mucus she also does debrox OTC to keep excessive wax at bay last few times she has been seen no impacted cerumen. She denies cold like sx, fevers joint pain myalgia reports covid negative also denies n/v/d or alteration in taste or smell PMH: Active problems - Computerized Problem List is the source for the followin. Hypertension 2. Obesity 3. Hyperlipidemia 4. Bereavement December 2013 Allergies: Patient has answered NKA The following VA and Non-VA meds were reconciled with patient: Active and Recently Outpatient Medications (excluding Supplies): Active Outpatient Medications Status 1) FLUTICASONE PROP 50MCG 120D NASAL INHL INSTILL 2 ACTIVE SPRAYS INTO EACH NOSTRIL ONCE DAILY FOR NASAL IRRITATION/INFLAMMATION 2) HYDROCHLOROTHIAZIDE 25MG TAB TAKE ONE TABLET BY MOUTH ACTIVE ONCE DAILY TO PREVENT FLUID/CONTROL BLOOD PRESSURE 3) SIMVASTATIN 40MG TAB TAKE ONE-HALF TABLET BY MOUTH AT ACTIVE BEDTIME FOR CHOLESTEROL Active Non-VA Medications Status 1) Non-VA MULTIVITAMIN/MINERALS CAP/TAB 1 TABLET BY ACTIVE MOUTH ONCE DAILY 4 Total Medications Allergies: Patient has answered NKA VITAL SIGNS: 97.1 F [36.2 C] (06/11/2024 11:30) 81 (06/11/2024 11:30) 16 (06/11/2024 11:30) 149/81 (06/11/2024 11:30) 0 (04/09/2024 11:16) 67 in [170.2 cm] (01/10/2017 14:21) 194 lb [88.00 kg] (06/11/2024 11:30) BMI: 30.4 ROS General: no fever, no unexplained weight loss or gain HEENT: ear pressure with runny nose and occasional congestion no sinus pressure today CV: denies CP, SOB, palpitations Lung: denies Dyspnea, cough, wheezing Ext: denies edema, weakness, falls Skin: denies rash or other lesions Psych: denies SI Neuro: denies weakness, dizziness, falls, MATIAS PHYSICAL EXAM * General: No acute distress, speech is clear, forming sentences. Head: Normocephalic, atraumatic Eyes: EOMI no nystagmus, PERRLA, Palpebral folds appropriate width, no drooping, sclera white, conjunctiva pink without exudate or edema. Ears: Symmetrical no deformities, Auricles palpable without tenderness, TM well visualized pearly wilde no cerumen foreign body or drainage no erythema bilaterally she has serum on lateral lange of external canal no erythema Nose: Patent nares, clear nasal discharge mild congestion, no tenderness on frontal and maxillary sinuses, nasal mucosa boggy Mouth/Pharynx/Neck: No Tonsillar exudate or ulcerations, uvula midline, posterior pharynx moist and pink mild cobble stoning, trachea midline without deviation No cervical Lymphadenopathy MENTAL A&Ox3 Appropriate, Pleasant, Cooperative LAB RESULTS LAST 1440 HRS - NONE FOUND Future Clinic Visits 08/30/2024 13:15 COM CARE-COLO SCRN ASSESSMENT AND PLAN: 1)allergic rhinitis -has recurrent sinusitis as well -She will take loratadine and Flonase daily -Also suggested trying PPI in case her hoarseness is from reflux -uses debrox OTC -for ear congestion and occasional dizziness vestibular rehab -Meclizine PRN for now Return to clinic to see me in 9 months, RTC sooner if needed. Clinical Reminders Medication Reconciliation: Outpatient: Has the patient been [...] whether with a VA or non-VA provider. HTN Assess for Elevated BP>=140/90: The patient's blood pressure is usually adequately controlled. No medication changes are indicated at this time. /sundeep/ JANET HOLM Nurse Practitioner Signed: 06/11/2024 12:23 CHELA BELL [facility] Jun 11, 2024 09:35 AM PREVENTIVE MEDICINE NURSING NOTE: LOCAL TITLE: CLINICAL REMINDERS/NURSING STANDARD TITLE: PREVENTIVE MEDICINE NURSING NOTE DATE OF NOTE: JUN 11, 2024@09:35 ENTRY DATE: JUN 11, 2024@09:35:03 AUTHOR: MATT REVELES EXP COSIGNER: URGENCY: STATUS: COMPLETED xx COVID-19 Immunization: Refused Moderna Monovalent COVID-19 vaccine Immunization: COVID-19 (MODERNA), MRNA, LNP-S, PF, 50 MCG/0.5 ML (AGES 12+ YEARS) Refusal Reason: PATIENT DECISION Patient refuses all immunization(s) in the COVID-19 group Date Documented: 06/11/24 11:39 /sundeep/ MATT REVELES REGISTERED NURSE Signed: 06/11/2024 11:40 MATT REVELES [facility]
--- OUTSIDE RECORDS SUMMARY | 2024-11-19 13:29 | XMS_ITS ---
Author Name [facility] [place] [place] Organization [place] Address [address] [place] [address] Care Team Providers Care Digital Editor Name Role Phone JENNIFER BELL Primary Care Provider Unavailabl e Selected Encounter This section includes the information on record at [place] for the Encounter. Date/Time Encounter Type Encounter Description Reason Provider Source Apr 09, 2024 11:00 AM OFFICE O/P EST MOD 30 MIN PRIMARY CARE/MEDICINE ICD-10-CM I10 Essential (primary) hypertension KYLE BELLA OLIVIA [facility] Encounter Template Text not used by [place] Assessments - Encounter Diagnoses This section includes the primary and secondary diagnoses documented for the Encounter. Date/Time Primary/Secondary Diagnosis Diagnosis Name Provider Source Apr 09, 2024 02:29 PM PRIMARY Essential (primary) hypertension KYLE BELLA OLIVIA [place] [facility] [place] [facility] Apr 09, 2024 02:29 PM SECONDARY Hyperlipidemia, unspecified KARMEN,JENNIFER [facility]IVIA [facility] [place] [facility] Plan of Treatment: Future Appointments (+ 6 months) and Future Tests (+/- 45 days) The Plan of Treatment section includes future care activities for the patient from all [place] treatmentfacilities. This section includes future appointments and future orders which are active, pending or scheduled. Future Appointments This section includes appointments that were scheduled to occur 6 months from the date of the Encounter, up to a maximum of 20 appointments. The data comes from all [place] treatment facilities. Appointment Date/Time Appointment Type Appointme nt Facility Name Apr 24, 2024 08:15 AM AMBULATORY - MEDICINE [facility] [place] [facility] Jun 11, 2024 11:30 AM AMBULATORY - MEDICINE [facility] [place] [facility] Jul 17, 2024 09:00 AM AMBULATORY - MEDICINE [facility] [place] [facility] Aug 14, 2024 10:00 AM AMBULATORY - SURGERY [facility] [place] [facility] Aug 14, 2024 11:00 AM AMBULATORY - SURGERY [facility] [place] [facility] Aug 30, 2024 01:15 PM AMBULATORY - NONE [facility] Lab Results: +/- 30 days of [...] Range Comment Apr 09, 2024 12:56 PM [facility] LIPID PANEL FASTING Specimen Type: SERUM No comment entered. Ordering Provider: JENNIFER BELL Report Released Date/Time: Apr 09, 2024 11:38 AM Reporting Lab: [facility] [address] [address] Performing Lab: [facility] [address] [address] CHOLESTEROL 198 mg/dL TRIGLYCERIDE 97 mg/dL 0-150 LDL calculated 113 mg/dL 0-129 CHOL/HDL 3.0 HDL CHOLESTEROL 66 mg/dL H 40-60 Apr 09, 2024 12:56 PM [facility] BASIC METABOLIC PANEL (non-fasting) Specimen Type: SERUM No comment entered. Ordering Provider: JENNIFER BELL Report Released Date/Time: Apr 09, 2024 11:38 AM Reporting Lab: [facility] [address] [address] Performing [facility]: [facility] [address] [address] UREA NITROGEN 18 mg/dL 7-25 GLUCOSE 91 mg/dL 65-100 SODIUM 139 mmol/L 135-145 POTASSIUM 4.0 mmol/L 3.5-5.0 CHLORIDE 103 mmol/L 100-110 CO2 26 meq/L 20-30 CREATININE, Serum 0.80 mg/dL 0.50-1.40 eGFR(CKD-EPI 2020) 83 mL/min >60 Apr 09, 2024 12:56 PM [facility] LIVER FUNCTION Specimen Type: SERUM No comment entered. Ordering Provider: JENNIFER BELL Report Released Date/Time: Apr 09, 2024 11:38 AM Reporting Lab: [facility] [address] [address] Performing Lab: [address] [address] PROTEIN,TOTAL 6.3 g/dL 6.0-8.3 ALBUMIN 4.1 g/dL 3.5-5.0 ALKALINE PHOSPHATASE 63 U/L 40-150 AST 16 U/L 5-34 ALT 16 U/L BILIRUBIN, TOTAL 0.7 mg/dL 0.2-1.2 Apr 09, 2024 12:56 PM [facility] HEMOGLOBIN A1C PANEL Specimen Type: BLOOD Comment: Values obtained from A1C measurements can vary. For atypical A1C assays, a reported value of 7.0 could actually be between 6.72 and 7.28 if measured by a reference method. A reported value of 9.0 could actually be between 8.73 and 9.27. Ref: http://www.ngs p.org/CAPdata. asp Ordering Provider: JENNIFER BELL Report Released Date/Time: Apr 09, 2024 11:38 AM Reporting Lab: [facility] [address] [facility] [address] Performing Lab: [address] [address] HEMOGLOBIN A1C 5.5 4.0-5.6 Apr 09, 2024 12:56 PM [facility] TSH Specimen Type: SERUM No comment entered. Ordering Provider: JENNIFER BELL Report Released Date/Time: Apr 09, 2024 11:38 AM Reporting Lab: [facility] [address] [facility] [address] Performing Lab: [facility] [place] [facility] [address] [address] TSH 2.17 u[IU]/mL 0.35-5.00 Apr 09, 2024 12:56 PM [facility] CBC AND DIFF (AUTO) Specimen Type: BLOOD No comment entered. Ordering Provider: JENNIFER BELL Report Released Date/Time: Apr 09, 2024 11:38 AM Reporting Lab: [facility] [address] [facility] [address] Performing Lab: [facility] [address] [facility] [address] WBC 5.61 10*3/uL 4.50-11.00 RBC 4.66 10*6/uL 3.93-5.16 HGB 13.7 g/dL 12-15.2 HCT 41.2 36.6-45.6 MCV 88.4 fL 82-99 MCHC 33.3 g/dL 30.8-35.1 PLT 315 10*3/uL 140-360 RDW-CV 12.7 12.0-16.0 Banks, Abs 0.49 10*3/uL 0.30-1.10 MCH 29.4 pg 26.2-32.6 Neut % 60.9 43.7-75.8 Lymph % 27.8 14.0-42.3 Banks % 8.7 5.1-13.7 Eos % 1.6 0.4-6.8 [...] Source Apr 09, 2024 11:50 AM 122/78 [place] [facility] [facility] Apr 09, 2024 11:16 AM 98.4 66 146/83 14 97 0 195 31 [place] [facility] [place] [facility] Social History: Smoking Status (Most current) and Tobacco Use (All prior to encounter date) This section includes the most current, and the historical, smoking and tobacco- related health factors from the [place] facility where the Encounter took place. Current Smoking Status This section includes the most current smoking, or tobacco-related health factor, from the [place] facility where the Encounter took place. Date/Time Current Smoking Status Comment Facil ity Nov 23, 2023 12:07 PM VA-TOBACCO FORMER USER [facility] [place] [facility] Tobacco Use History This section includes a history of the smoking, or tobacco-related health factors, that were collected on or before the date of the Encounter. The data comes from the [place] facility where the Encounter took place. Date/Time Smoking Status/Tobacco Use Comment F acility Nov 23, 2023 12:07 PM VA-TOBACCO QUIT 15 YRS OR MORE [facility] [place] [facility] Jul 13, 2022 10:30 AM VA-TOBACCO NEVER USED [facility] [place] [facility] Jun 09, 2021 11:00 AM VA-TOBACCO NEVER USED [facility] [place] [facility] Feb 20, 2020 03:16 PM VA-TOBACCO NEVER USED [facility] [place] [facility] Feb 11, 2019 10:08 AM VA-TOBACCO NEVER USED [facility] [place] [facility] March 07, 2018 09:17 AM LIFETIME NON-TOBACCO USER [facility] [place] [facility] Jun 01, 2016 10:04 AM LIFETIME NON-TOBACCO USER [facility] [place] [facility] Jun 12, 2012 10:28 AM LIFETIME NON-TOBACCO USER [facility] [place] [facility] Encounter Notes: All associated encounter notes This section contains the clinical notes associated to the Encounter. Date/Time Encounter Note(s) Provider Source Apr 15, 2024 03:45 PM LETTERS: LOCAL TITLE: PATIENT LETTER (B) STANDARD TITLE: LETTERS DATE OF NOTE: APR 15, 2024@15:45 ENTRY DATE: APR 15, 2024@15:45:39 AUTHOR: JENNIFER BELL EXP COSIGNER: URGENCY: STATUS: COMPLETED [facility] Toll Free Number Telephone Assistance can be reached at extension [phone] [address]AS[address], [place], [address] APR 15, 2024 Dear LEXUS DASILVA, All your blood work is normal. Keep up the healthy lifestyle! Eat a low-carbohydrate diet. Minimize sugars, refined carbs, and alcohol. Maintain a healthy weight. Perform high-intensity exercise if you can do so safely. Exercise regularly: Aim for at least 30 minutes of physical activity on most days of the week. Avoid sugar and refined carbohydrates. Consider avoiding saturated fats. Increase your intake of fiber-rich plants. HGB A1C (WR): 5.5 WBC: 5.61 RBC: 4.66 HGB: 13.7 HCT: 41.2 MCV: 88.4 MCHC: 33.3 RDW: 12.7 PLT: 315 MCH: 29.4 Neut %: 60.9 Lymph %: 27.8 Banks %: 8.7 Eos %: 1.6 Baso %: 0.5 Neut, Abs: 3.41 Lymph, Abs: 1.56 Banks, Abs: 0.49 Eos, Abs: 0.09 Baso, Abs: 0.03 Immature Granulocytes %: 0.5 Immature Granulocytes, Abs: 0.03 GLUCOSE: 91 UREA NITROGEN: 18 SODIUM: 139 POTASSIUM: 4.0 CHLORIDE: 103 CO2: 26 CHOLESTEROL: 198 PROTEIN,TOTAL: 6.3 ALBUMIN: 4.1 ALKALINE PHOSPHATASE: 63 SGOT: 16 SGPT: 16 TRIGLYCERIDE: 97 LDL CHOL: 113 CHOL/HDL RATIO: 3.0 HDL: 66 H BILIRUBIN,TOT.: 0.7 TSH (Access): 2.17 CREATININE-EGFR: 0.80 eGFR CKD-EPI 2020: 83 Below are a listing of upcoming appointments you have scheduled at [facility]: 04/24/2024 08:15 COM CARE-MAMMO FEM SCRN If you have any questions please let me know otherwise see you at your next scheduled visit. Sincerely, Jennifer Karmen, INTERNAL GRINDER TENDER Family Nurse Practitioner Women[facility] PACT 5 Primary Care [facility] [address] [facility] [address] [place] [address] [place] [address] [phone] [facility] [address] [facility] [address] [place] [address] [place] [address] [phone] JENNIFER BELL [facility] Apr 09, 2024 11:32 AM PRIMARY CARE NURSE PRACTITIONER OUTPATIENT NOTE: LOCAL TITLE: NURSE PRACTITIONER OUTPATIENT NOTE STANDARD TITLE: PRIMARY CARE NURSE PRACTITIONER OUTPATIENT NOTE DATE OF NOTE: APR 09, 2024@11:32 ENTRY DATE: APR 09, 2024@11:32:45 AUTHOR: JENNIFER BELL EXP COSIGNER: URGENCY: STATUS: COMPLETED Chief complaint: Pt is a 63 who comes in for follow up of medical problems as noted below. HPI: HTN Still on HCTZ 25mg daily HLD takes simvastatin Pap due next year Mammogram gets annually needs consult placed Due for colonoscopy Doing well recently traveled to [facility] to see her son DIL and grandchildren she is also planning a trip to [place] this fall. She is doing well denies any new health concerns. PMH: Active problems - Computerized Problem List is the source for the followin. Hypertension 2. Obesity 3. Impaired fasting glucose 4. Hyperlipidemia 5. Bereavement December 2013 6. Abnormal PAP Smear DEYIS I 1988, colpo negative Allergies: Patient has answered NKA The following [...] Allergies: Patient has answered NKA VITAL SIGNS: 98.4 F [36.9 C] (04/09/2024 11:16) 66 (04/09/2024 11:16) 14 (04/09/2024 11:16) 122/78 (04/09/2024 11:50) 0 (04/09/2024 11:16) 67 in [170.2 cm] (01/10/2017 14:21) 195 lb [88.45 kg] (04/09/2024 11:16) BMI: 30.6 ROS General: no fever, no unexplained weight loss or gain HEENT: denies vision changes, CV: denies CP, SOB, palpitations Lung: denies Dyspnea, cough, wheezing Abd: denies n/v/d Ext: denies edema, weakness, falls Skin: denies rash or other lesions Psych: denies SI Neuro: denies weakness, dizziness PHYSICAL EXAM * General: No acute distress, speech is clear, forming sentences. HEENT: PERRL, EOMI, OP clear, No cervical lymphadenopathy, no thyromegaly CV: S1S2, RRR, no m/r/g Lung: CTAB, no wheeze, rhonchi, or crackles, good breath sounds to bases b/l Abd: soft, NT/ND Ext: no edema, warm and well perfused bilat. NEURO CN II-XII grossly intact, gait steady without shuffle, Normal sensation to feet bilaterally MENTAL A&Ox3 Appropriate, Pleasant, Cooperative ASSESSMENT AND PLAN: 1)HTN -Bp rechecked and at goal -Cont. HCTZ 25mg daily -Check BNP -on Statin for risk reduction 2)HLD -Stable on Simvastatin -Check Lipids and calc ASCVD risk HCM Mammo and colonoscopy ordered Return to clinic to see me in months, RTC sooner if needed. Clinical Reminders Follow Up Colonoscopy: Colonoscopy is due based on information available to this reminder. Colonoscopy consult has been ordered. See orders tab for details. Mammogram Screening: See orders tab for any orders that may have been entered. /sundeep/ JANET HOLM Nurse Practitioner Signed: 04/09/2024 14:28 JENNIFER BELL [facility] Apr 09, 2024 11:10 AM PREVENTIVE MEDICINE NURSING NOTE: LOCAL TITLE: CLINICAL REMINDERS/NURSING STANDARD TITLE: PREVENTIVE MEDICINE NURSING NOTE DATE OF NOTE: APR 09, 2024@11:10 ENTRY DATE: APR 09, 2024@11:10:48 AUTHOR: COURTNEY ARMSTRONG EXP COSIGNER: URGENCY: STATUS: COMPLETED Influenza Immunization: No influenza vaccination was received during the recent influenza season. COVID-19 Immunization: Refused Moderna Monovalent COVID-19 vaccine Immunization: COVID-19 (MODERNA), MRNA, LNP-S, PF, 50 MCG/0.5 ML (AGES 12+ YEARS) Refusal Reason: PATIENT DECISION Patient refuses all immunization(s) in the COVID-19 group Date Documented: 04/09/24 11:17 Herpes Zoster (Shingles) Vaccine: The patient declines to receive the recommended dose of zoster (shingles) vaccine. Immunization: ZOSTER RECOMBINANT Refusal Reason: PATIENT DECISION Patient refuses all immunization(s) in the ZOSTER group Date Documented: 04/09/24 11:18 Sexual Orientation: The patient thinks of their sexual orientation as: Straight or Heterosexual /jose ARMSTRONG, MSN, RN, CNL PRIMARY CARE TEAM NURSE Signed: 04/09/2024 11:20 COURTNEY ARMSTRONG [facility]
--- OUTSIDE RECORDS SUMMARY | 2024-11-19 13:29 | XMS_ITS ---
Author Name [facility] [place] Organization [place] Address [address] [place] [address] Care Team Providers Care Infant Teacher Name Role Phone CHELA BELL Primary Care Provider Unavailabl e Selected Encounter This section includes the information on record at [place] for the Encounter. Date/Time Encounter Type Encounter Description Reason Pro vider Source Jun 10, 2024 01:41 PM Outpatient Encounter TELEPHONE TRIAGE IHE Encounter Template Text not used by [place] Plan of Treatment: Future Appointments (+ 6 months) and Future Tests (+/- 45 days) The Plan of Treatment section includes future care activities for the patient from all [place] treatmentfacilities. This section includes future appointments and future orders which are active, pending or scheduled. Future Appointments This section includes appointments that were scheduled to occur 6 months from the date of the Encounter, up to a maximum of 20 appointments. The data comes from all [place] treatment facilities. Appointment Date/Time Appointment Type Appointme nt Facility Name Jun 11, 2024 11:30 AM AMBULATORY - MEDICINE [facility] [place] [facility] Jul 17, 2024 09:00 AM AMBULATORY - MEDICINE [facility] [place] [facility] Aug 14, 2024 10:00 AM AMBULATORY - SURGERY [facility] [place] [facility] Aug 14, 2024 11:00 AM AMBULATORY - SURGERY [facility] [place] [facility] Aug 30, 2024 01:15 PM AMBULATORY - NONE [facility] [place] [facility] Oct 16, 2024 03:00 PM AMBULATORY - MEDICINE [facility] [place] [facility] Social History: Smoking Status (Most current) and Tobacco Use (All prior to encounter date) This section includes the most current, and the historical, smoking and tobacco- related health factors from the [place] facility where the Encounter took place. Current Smoking Status This section includes the most current smoking, or tobacco-related health factor, from the [place] facility where the Encounter took place. Date/Time Current Smoking Status Comment Rick ity Nov 23, 2023 12:07 PM [place]-TOBACCO FOR[place] USER [place] [facility] Tobacco Use History This section includes a history of the smoking, or tobacco-related health factors, that were collected on or before the date of the Encounter. The data comes from the [place] facility where the Encounter took place. Date/Time Smoking Status/Tobacco Use Comment F acsterling Nov 23, 2023 12:07 PM VA-TOBACCO QUIT 15 YRS OR MORE [facility] [place] [facility] Jul 13, 2022 10:30 AM VA-TOBACCO NEVER USED [facility] [place] [facility] Jun 09, 2021 11:00 AM VA-TOBACCO NEVER USED [facility] [place] [facility] Feb 20, 2020 03:16 PM VA-TOBACCO NEVER USED [facility] [place] [facility] Feb 11, 2019 10:08 AM VA-TOBACCO NEVER USED [facility] [place] [facility] March 07, 2018 09:17 AM LIFETIME NON-TOBACCO USER [facility] [place] [facility] Jun 01, 2016 10:04 AM LIFETIME NON-TOBACCO USER [facility] [place] [facility] Jun 12, 2012 10:28 AM LIFETIME NON-TOBACCO USER [place] [facility] [place] [facility] Encounter Notes: All associated encounter notes This section contains the clinical notes associated to the Encounter. Date/Time Encounter Note(s) Provider Source Jun 10, 2024 01:41 PM RN PROGRESS NOTE: LOCAL TITLE: CCC: CLINICAL TRIAGE STANDARD TITLE: RN PROGRESS NOTE DATE OF NOTE: JUN 10, 2024@13:41:09 ENTRY DATE: JUN 10, 2024@13:41:09 AUTHOR: SHAWN SMYTH COSIGNER: URGENCY: STATUS: COMPLETED CCC: CLINICAL TRIAGE Has ADDENDA Patient Demographics Patient Name: LEXUS DASILVA Patient Primary [address]: [address] [place] [id number] Patient Primary Phone: [phone] Patient : 1960 Patient Age: 63 Caller/Recipient Relation to Patient: Self Emergency Contact: null UNK Triage Summary Pain Score: 3 Chief Complaint: Hearing Loss System WHEN: Within 3 Days Nurse's Recommendation / WHEN: Within 3 Days System WHERE: Clinic Nurse's Recommendation / WHERE: Clinic/[facility] Patient Disposition Patient/Caregiver agrees to plan of care: Yes Nursing Plan and Disposition Referred Patient for In-Person Appt Transferred patient to Sched & Admin-Apt Nurse Summary Nurse Summary: See symptom response list as below C/O bilat ear decreased hearing Began w/ cold symptoms Mild discomfort in right ear Denies drainage Hearing is muffled Reports Rhinorrhea w/ yellow-green drainage, post-nasal drip and sore throat Reports cough Continues to use Flonase States this occurred in past and was prescribed Loratadine - no longer has allergy pills Advised patient of f/u recommendation, requests f2f w/ PCP or sick call f/u. Declined [facility] provider. Plan: -Warm hand off to [facility] msa for f/u scheduling, defer to pact team for sick call availability Clinical Contact Center Codes Clinic/Location: V1 CWM PHONE [facility] RN Decision Support System Output: Triage Complete Triage Date: 06/10/2024, 01:25 PM Triage Note: Decision Support Tool Used: TXCC Phone Triage 10 Jun 2024 17:23:15 +0000 [facility] Demographics 63 y/o Female Results CC: Hearing Loss Software suggested: Within 3 Days Software suggested follow-up location: Clinic, consider [facility] care Values and Measures Duration of CC: 10 Days Positive Responses HPI: ear pain, worsening HPI: hearing loss, duration longer than 7 days Negative Responses Denies: HPI: ear canal discharge, exudative Denies: HPI: ear canal erythema Denies: HPI: ear canal swelling Denies: HPI: ear injury Denies: HPI: ear pain, moderate to severe Denies: HPI: sudden loss of hearing in one ear Denies: MEDS: taking new medication /es/ SHAWN ALEXANDER 1 [facility] RN Signed: 06/10/2024 13:41 Receipt Acknowledged By: 06/10/2024 15:12 /es/ MATT REVELES REGISTERED NURSE for COURTNEY ARMSTRONG 06/10/2024 15:40 /es/ Columba Dillon furnace stock inspector Staff Nurse 06/10/2024 ADDENDUM STATUS: COMPLETED Rn Returned call- request renewal of medication and follow up PCP appointment /es/ MATT REVELES REGISTERED NURSE Signed: 06/10/2024 15:12 [facility]
--- OUTSIDE RECORDS SUMMARY | 2024-11-19 13:29 | XMS_ITS ---
Author Name [facility] [place] [place] Organization [facility] [place] Address [address] [place] [address] Care Team Providers Care Supervisor Mold [employer] Name Role Phone CHELA BELL Primary Care Provider Unavailabl e Selected Encounter This section includes the information on record at [place] for the Encounter. Date/Time Encounter Type Encounter Description Reason Pro vider Source Jun 11, 2024 11:57 AM Outpatient Encounter PRIMARY CARE/MEDICINE IHE Encounter Template Text not used by [place] Plan of Treatment: Future Appointments (+ 6 [...] - MEDICINE [place] [facility] Aug 14, 2024 10:00 AM AMBULATORY - SURGERY [place] [facility] [place] [facility] Aug 14, 2024 11:00 AM AMBULATORY - SURG[place] [facility] [place] [facility] Aug 30, 2024 01:15 PM AMBULATORY - NONE [place] [facility] Oct 16, 2024 03:00 PM AMBULATORY - MEDICINE [place] [facility] Vital Signs: All taken on the encounter date This section contains inpatient and outpatient Vital Signs collected on the date of the Encounter. Date/Time Temperature Pulse Blood Pressure Respiratory Rate SP02 Pain Height Weight Body Mass Index Source Jun 11, 2024 11:30 AM 97.1 81 149/81 16 97 194 30 [place] [facility] Social History: Smoking Status (Most [...] VA-TOBACCO FORMER USER [place] [facility] Tobacco Use History This section includes a history of the smoking, or tobacco-related health factors, that were collected on or before the date of the Encounter. The data comes from the [place] facility where the Encounter took place. Date/Time Smoking Status/Tobacco Use Comment F acility Nov 23, 2023 12:07 PM VA-TOBACCO QUIT 15 YRS OR MORE [place] [facility] [place] [facility] Jul 13, 2022 10:30 AM VA-TOBACCO NEVER USED [place] [facility] [place] [facility] Jun 09, 2021 11:00 AM VA-TOBACCO NEVER USED [place] [facility] [place] [facility] Feb 20, 2020 03:16 PM VA-TOBACCO NEVER USED [place] [facility] [place] [facility] Feb 11, 2019 10:08 AM VA-TOBACCO NEVER USED [place] [facility] [place] [facility] March 07, 2018 09:17 AM LIFETIME NON-TOBACCO USER [place] [facility] [place] [facility] Jun 01, 2016 10:04 AM LIFETIME NON-TOBACCO USER [place] [facility] [place] [facility] Jun 12, 2012 10:28 AM LIFETIME NON-TOBACCO USER [place] [facility] [place] [facility] Encounter Notes: All associated encounter notes This section contains the clinical notes associated to the Encounter. Date/Time Encounter Note(s) Provider Source Jun 11, 2024 11:57 AM ADMINISTRATIVE NOT E: LOCAL TITLE: ADMINISTRATIVE RECALL NOTE STANDARD TITLE: ADMINISTRATIVE NOTE DATE OF NOTE: JUN 11, 2024@11:57 ENTRY DATE: JUN 11, 2024@11:57:22 AUTHOR: SUKHI SALINAS EXP COSIGNER: URGENCY: STATUS: COMPLETED RTC orders: Able to contact patient: Spoke to Patient/Patient customer support representative per policy utilizing HIPAA Guidelines. Identity actively confirmed by: Full name, Other:last 4 Patient Information/Action: Additional Comments: did not want to schedule annual 2024 at this time. She will call back next year to schedule. /sundeep/ SUKHI SALINAS Advanced Bushing Press Operator Signed: 06/11/2024 11:58 SUKHI SALINAS [place] [facility]
--- OUTSIDE RECORDS SUMMARY | 2024-11-19 13:29 | XMS_ITS ---
Author Name [facility] [place] Organization [facility] [place] Address [address] [place] [address] Care Team Providers Care First Assistant Manager Name Role Phone CHELA BELL Primary Care Provider Unavailabl e Selected Encounter This section includes the information on record at [place] for the Encounter. Date/Time Encounter Type Encounter Description Reason Provider Source Jul 17, 2024 09:00 AM OFF/OP CNSLTJ NEW/EST MOD 40 OTOLARYNGOLOGY/EN T ICD-10-CM J30.9 Allergic rhinitis, unspecified JESSICA GOLDSTEIN [facility] Encounter Template Text not used by [place] Assessments - Encounter Diagnoses This section includes the primary and secondary diagnoses documented for the Encounter. Date/Time Primary/Secondary Diagnosis Diagnosis Name Provider Source Jul 17, 2024 10:00 AM PRIMARY Allergic rhinitis, unspecified JESSICA GOLDSTEIN [place] [place] [facility] Jul 17, 2024 10:00 AM SECONDARY Chronic cough JESSICA GOLDSTEIN [place] [facility] [place] [facility] Jul 17, 2024 10:00 AM SECONDARY Hypertrophy of nasal turbinates JESSICA GOLDSTEIN [place] [facility] [place] [facility] Jul 17, 2024 10:00 AM SECONDARY Unspecified obstruction of Eustachian tube, bilateral JESSICA GOLDSTEIN [place] [place] [facility] Plan of Treatment: Future Appointments (+ 6 months) and Future Tests (+/- 45 days) The Plan of Treatment section includes future care activities for the patient from all [place] treatmentfacilities. This section includes future appointments and future orders which are active, pending or scheduled. Future Appointments This section includes appointments that were scheduled to occur 6 months from the date of the Encounter, up to a maximum of 20 appointments. The data comes from all [place] treatment facilities. Appointment Date/Time Appointment Type Appointme nt Facility Name Aug 14, 2024 10:00 AM AMBULATORY - SURGERY [place] [facility] [place] [place] [facility] Aug 14, 2024 11:00 AM AMBULATORY - SURGERY [place] [facility] [place] [facility] Aug 30, 2024 01:15 PM AMBULATORY - NONE [place] [place] [facility] Oct 16, 2024 03:00 PM [facility]ULATORY [facility] Lab Results: +/- 30 days of the [...] Range Comment Jul 17, 2024 10:00 AM [place] [facility] ALLERGY PROFILE, REGION 1 RESPIRATORY Specimen [...] . ! <0.10 ! 0 ! !Maple ([place]) (t1) IgE . . . . . . ! <0.10 ! 0 ! !Maple ([place]) (t1) IgE . . . . . . ! <0.10 ! 0 ! !Birch (t3) IgE . . . . . . . . . . . . ! <0.10 ! 0 ! !Birch (t3) IgE . . . . . . . . . . . . ! <0.10 ! 0 ! ![place] (t6) IgE. . . . . . . . ! <0.10 ! 0 ! ![place] (t6) IgE. . . . . . . . ! <0.10 ! 0 ! !Lamar (t7) IgE . . . . . . . . . . . . . ! <0.10 ! 0 ! !Lamar (t7) IgE . . . . . . . . . . . . . ! <0.10 ! 0 ! !Elm (t8) IgE . . . . . . . . . . . . . ! <0.10 ! 0 ! !Elm (t8) IgE . . . . . . . . . . . . . ! <0.10 ! 0 ! ![place] (t10) IgE. . . . . . . . . ! <0.10 ! 0 ! ![place] (t10) IgE. . . . . . . . . ! <0.10 ! 0 ! ![place] (t11) IgE . . . . . . . . . . ! <0.10 ! 0 ! ![place] (t11) IgE . . . . . . . . . . ! <0.10 ! 0 ! ![place] (t14) IgE . . . . . . . . . ! <0.10 ! 0 ! ![place] (t14) IgE . . . . . . . . . ! <0.10 ! 0 ! ![place] (t15) IgE. . . . . . . . . . ! <0.10 ! 0 ! ![place] (t15) IgE. . . . . . . . . . ! <0.10 ! 0 ! ![place] (t70) IgE . . . . . . . ! <0.10 ! 0 ! ![place] (t70) IgE . . . . . [...] . ! <0.10 ! 0 ! ![place]ep [place] (w18) IgE . . . . . . . . ! <0.10 ! 0 ! ![place]ep [place] (w18) IgE . . . . . [...] determined performance characteristics have been determined by [employer]. It has not been cleared or by [employer]. It has not been cleared or approved [...] used for clinical purposes. Test Performed by [employer], Test Performed by [employer], [employer] [facility], [employer] [facility], [address] [place] [address] [place], [place] Moncho Singh M.D., Ph.D., Director of Laboratories Moncho Singh M.D., Ph.D., Director of Laboratories , CLIA [id number] , CLIA [id number] TEST PERFORMED AT: TEST PERFORMED AT: , , Ordering Provider: JESSICA GOLDSTEIN Report Released Date/Time: Jul 17, 2024 09:47 AM Reporting Lab: [facility] [address] [facility] [id number] Performing Lab: [facility] [address] [address] IgE, Serum SEE NOTE Vital Signs: All taken on the encounter date This section contains inpatient and outpatient Vital Signs collected on the date of the Encounter. Date/Time Temperature Pulse Blood Pressure Respiratory Rate SP02 Pain Height Weight Body Mass Index Source Jul 17, 2024 09:15 AM 97.4 71 148/84 16 100 0 194.2 30 [facility] Social History: Smoking Status (Most current) and Tobacco Use (All prior to encounter date) This section includes the most current, and the historical, smoking and tobacco- related health factors from the [place] facility where the Encounter took place. Current Smoking Status This section includes the most current smoking, or tobacco-related health factor, from the [place] facility where the Encounter took place. Date/Time Current Smoking Status Comment Rick ity Nov 23, 2023 12:07 PM VA-TOBACCO FORMER USER [facility] Tobacco Use History This section includes a history of the smoking, or tobacco-related health factors, that were collected on or before the date of the Encounter. The data comes from the [place] facility where the Encounter took place. Date/Time Smoking Status/Tobacco Use Comment F acsterling Nov 23, 2023 12:07 PM VA-TOBACCO QUIT 15 YRS OR MORE [facility] Jul 13, 2022 10:30 AM VA-TOBACCO NEVER USED [facility] Jun 09, 2021 11:00 AM VA-TOBACCO NEVER USED [place] [facility] Feb 20, 2020 03:16 PM VA-TOBACCO NEVER USED [place] [facility] [place] [facility] Feb 11, 2019 10:08 AM VA-TOBACCO NEVER USED [place] [facility] [place] [facility] March 07, 2018 09:17 AM LIFETIME NON-TOBACCO USER [place] [facility] [place] [facility] Jun 01, 2016 10:04 AM LIFETIME NON-TOBACCO USER [place] [facility] [place] [facility] Jun 12, 2012 10:28 AM LIFETIME NON-TOBACCO USER [place] [facility] [place] [facility] Encounter Notes: All associated encounter notes This section contains the clinical notes associated to the Encounter. Date/Time Encounter Note(s) Provider Source Jul 17, 2024 09:50 AM OTOLARYNGOLOGY CONSULT: [facility] TITLE: CONSULT REPORT/OTOLARYNGOLOGY STANDARD TITLE: OTOLARYNGOLOGY CONSULT DATE OF NOTE: JUL 17, 2024@09:50 ENTRY DATE: JUL 17, 2024@09:50:13 AUTHOR: JESSICA GOLDSTEIN COSIGNER: URGENCY: STATUS: COMPLETED CONSULT REPORT/OTOLARYNGOLOGY Has ADDENDA CONSULT REQUESTED FROM CHELA BELL JUL 17, 2024 LEXUS DASILVA is a 63 y/o NON smoker WHITE FEMALE, previously in [employer] FROM Apr TO Feb from [facility] [place], w/chief complaint of POSTNASAL DRIP, COUGH, BLOCKED EARS 63-year-old female here for intermittent postnasal drip, cough, blocked ears. Patient states that as a child growing up she had constant ear infections and was always on antibiotics . She never had tubes placed. However she did also get recurrent throat discomfort. She was a man and had constant laryngitis. At age 17 she underwent tonsillectomy and adenoidectomy. Symptoms appeared to improve for many years however now over the last several years and particularly this past year she has had increased intermittent postnasal drip, cough, and blocked ears. In November she had significant symptoms that lasted for 2 months. Her ears were blocked and she had a cough which required her to sleep in a chair for several weeks. Then in May she was in [place]. While there she was in a moldy restorationism basement and she again began to have significant symptoms of voice change, postnasal drip, feelings like she had a cold, and blocked ears. This also last several weeks. Her PCP started her on Claritin and Flonase which she uses only intermittently when symptoms develop. She started taking the allergy medicine when her symptoms started when she got back from [place]. She also drinks a lot of water but increases her water intake when she becomes sick. Both times the cough became severe. She notices that the 2 times she typically gets ill is in the fall when there is a lot of leaves and she is raking leaves and in the spring when she begins to mow the lawn. Overall she does not like to take a lot of medication. She is very active and runs or walks daily. She does not want anything that will make her sleepy. 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 Patient denies otalgia, dysphagia, weight loss. PMHx: Active problems - Computerized Problem List is the source for the followin. Rhinitis 2. Hypertension 3. Obesity 4. Hyperlipidemia 5. Bereavement Service Connected Disabilities with % Eligibility: NSC VERIFIED MEDS: Active Outpatient Medications (including Supplies): FLUTICASONE PROP 50MCG 120D NASAL INHL INSTILL 2 SPRAYS ACTIVE INTO EACH NOSTRIL ONCE DAILY FOR NASAL IRRITATION/INFLAMMATION HYDROCHLOROTHIAZIDE 25MG TAB TAKE ONE TABLET BY MOUTH ONCE ACTIVE DAILY TO PREVENT FLUID/CONTROL BLOOD PRESSURE LORATADINE 10MG TAB TAKE ONE TABLET BY MOUTH ONCE DAILY ACTIVE FOR ALLERGY FOR ALLERGY OMEPRAZOLE 20MG EC CAP TAKE ONE CAPSULE BY MOUTH EVERY ACTIVE MORNING 30 MINUTES BEFORE BREAKFAST FOR GASTROESOPHAGEAL REFLUX DISEASE SIMVASTATIN 40MG TAB TAKE ONE-HALF TABLET BY MOUTH AT ACTIVE BEDTIME FOR CHOLESTEROL Non-VA MULTIVITAMIN/MINERALS CAP/TAB 1 TABLET BY MOUTH ACTIVE ONCE DAILY ALL: Patient has answered NKA Fam Hx: Non - contributory Soc Hx: NON-SMOKER ROS: Denies any other relavent ROS Vitals Enter at: Jul 17, 2024@09:15 BP: 148/84 P: 71 R: 16 T: 97.4 194.2 lb [88.09 kg] (07/17/2024 09:15) BMI: 30.5 CONSTITUTION: GENERAL APPEARANCE:Well developed, well nourished and groomed. No apparent acute or chronic distress. NO HOARSENESS, NO COUGH HEAD, FACE, SALIVARY GLANDS AND TMJ: Palpation of Parotid and Submandibular glands: Normal. Facial Mobility: Normal. EAR, NOSE, MOUTH AND THROAT: Pinnas - normal. Otoscopic exam: RIGHT EAR: External auditory canal CERUMEN, tympanic membrane mobile LEFT EAR: External auditory canal CERUMEN, tympanic membrane mobile Nasal Interior: Turbinates and middle meatus - S SHAPED DEFORMITY, +2 INFERIOR TURBINATE HYPERTROPHY, MODERATE CLEAR RHINITIS, NO POLYPS, no active bleeding or evidence of bleeding. Lips, Teeth and Gums: Lips normal. Oral Cavity and Oropharynx: Oral mucosa with normal color and moisture. Anterior 2/3rds of tongue normal. Breath quality normal. Hard palate normal. Normal floor of mouth. ABSENT TONSILS, COBBLESTONING IN THE POSTERIOR PHARYNX NECK AND THYROID: Neck: no adenopathy; no neck masses. RESPIRATORY: Respiratory effort normal. LYMPH NODES: Neck nodes: normal. NEUROLOGIC: Higher integrative functions: Normal orientation, memory, attention span and concentration, language, and fund of knowledge. Cranial nerves: Cranial nerves II-XII grossly intact and symmetrical. PSYCHIATRIC: Mood and affect: normal and appropriate to the situation. [address] Laryngoscopy; flexible fiberoptic; diagnostic Informed consent was obtained. Risks, benefits, and alternatives were discussed. PROCEDURE NOTE After anesthesia was established, the lubricated scope was introduced through the nose into the larynx. All structures were examined as noted below. ANESTHESIA: Topical 4% Lidocaine and oxymetazoline FINDINGS: MUCUS THROUGHOUT THE LARYNX MUSCLE TENSION Base of Tongue: Normal Posterior Pharynx: COBBLESTONING Lateral Pharynx: Normal Vallecula: Normal Epiglottis: Normal Pyriform Sinus: Normal Arytenoids: Normal Interarytenoid Space: Normal False Cord: Normal True Cord Mucosa: Normal Larynx Mobility: Normal Subglottic Space: Normal TOLERANCE: Good ESTIMATED BLOOD LOSS: nil Assessment/Plan JUL 17, 2024: 63-year-old female here for intermittent postnasal drip, cough, blocked ears. Patient states that as a child growing up she had constant ear infections and was always on antibiotics . She never had tubes placed. However she did also get recurrent throat discomfort. She was a man and had constant laryngitis. At age 17 she underwent tonsillectomy and adenoidectomy. Symptoms appeared to improve for many years however now over the last several years and particularly this past year she has had increased intermittent postnasal drip, cough, and blocked ears. In November she had significant symptoms that lasted for 2 months. Her ears were blocked and she had a cough which required her to sleep in a chair for several weeks. Then in May she was in [place]. While there she was in a moldy restorationism basement and she again began to have significant symptoms of voice change, postnasal drip, feelings like she had a cold, and blocked ears. This also last several weeks. Her PCP started her on Claritin and Flonase which she uses only intermittently when symptoms develop. She started taking the allergy medicine when her symptoms started when she got back from [place]. She also drinks a lot of water but increases her water intake when she becomes sick. Both times the cough became severe. She notices that the 2 times she typically gets ill is in the fall when there is a lot of leaves and she is raking leaves and in the spring when she begins to mow the lawn. Physical exam shows patient with an S shape septal deformity +2 inferior turbinate hypertrophy, moderate rhinitis. Oral cavity shows absent tonsils with significant cobblestoning posterior pharynx. Fiberoptic exam shows significant cobblestoning the posterior pharynx with mucus throughout the larynx and muscle tension. No evidence of mass lesions. 1. Allergic rhinitis -I had a long discussion with the patient regarding her symptoms. Her symptoms are very consistent with allergic rhinitis. By history she has had this propensity throughout her life and allergy symptoms often worsen at extremes of age and that is why the symptoms have become worse. I have recommended that she take medicine daily as a preventative measure. Particularly as the fall is coming shortly. I recommended that she take Claritin and Flonase daily. She has both of these prescriptions. I have also recommended that we test her blood today as a screening for allergies. She has not taken the loratadine for 3 days. In the future she could possibly benefit from skin testing and immunotherapy if symptoms worsen. She will follow-up in 3 months. If symptoms continue certainly we could start her on montelukast. If cough was to become more persistent, speech therapy could be indicated. 2. Cerumen impaction - patient had nonobstructing cerumen. If this persist at the next visit I will offer removal. Given that she underwent fiberoptic laryngoscopy I held off on a second procedure today due to tolerance. Complete encounter includes: Review of past medical records Time spent with patient including obtaining history, physical exam, shared decision making, procedures Counseling and answering questions Post visit documentation to include but not limited to medication and lab ordering. Total time = Minimum 45 min MEDICATION RECONCILIATION Outpatient: Has the patient been taking medications as documented in the EMLR? YES: The patient has been taking medications as documented in the EMLR. Essential Medication List for Review used to complete this medication reconciliation. INCLUDED IN THIS LIST: Alphabetical list of active outpatient prescriptions dispensed from this [place] (local) and dispensed from another [place] or [facility] facility (remote) as well as inpatient orders [...] whether with a VA or non-VA provider. JLV Link Data on this list may not be complete. Please check JLV. Allergies/ADRs (Tool #5) FACILITY ALLERGY/ADR -------- [place] [facility] No Known Allergies [facility] NO KNOWN ALLERGIES Med [facility] [place] (Tool #1) INCLUDED IN THIS LIST: Alphabetical list of active outpatient prescriptions dispensed from this [place] (local) and dispensed from another [place] or [facility] facility (remote) as well as inpatient orders (local pending and active), local clinic medications, locally documented non-VA medications, and local prescriptions that have or been discontinued in the past 90 days. Non-VA Meds Last Documented On: Dec 09, 2020 NOTE The display of VA prescriptions dispensed from another [place] or [facility] facility (remote) is limited to active outpatient prescription entries matched to National Drug File at the originating site and may not include some items such as investigational drugs, compounds, etc. NOT INCLUDED IN THIS LIST: Medications self-entered by the patient into personal health records (i.e. Slicebooks) are NOT included in this list. Non-VA medications documented outside this [place], remote inpatient orders (regardless of status) and remote clinic medications are NOT included in this list. The patient and provider must always discuss medications the patient is taking, regardless of where the medication was dispensed or obtained. OUTPT FLUTICASONE PROP 50MCG 120D NASAL INHL (Status = Discontinued) INSTILL 2 SPRAYS INTO EACH NOSTRIL ONCE DAILY FOR NASAL IRRITATION/INFLAMMATION Rx# [id number] Last Released: 11/17/23 Qty/Days Supply: 12/05 Rx Expiration Date: 11/15/24 Refills Remainin Indication: FOR NASAL IRRITATION/INFLAMMATION OUTPT FLUTICASONE PROP 50MCG 120D NASAL INHL (Status = Active) INSTILL 2 SPRAYS INTO EACH NOSTRIL ONCE DAILY FOR NASAL IRRITATION/INFLAMMATION Rx# [id number] Last Released: 06/11/24 Qty/Days Supply: 12/05 Rx Expiration Date: 06/12/25 Refills Remainin Indication: FOR NASAL IRRITATION/INFLAMMATION OUTPT HYDROCHLOROTHIAZIDE 25MG TAB (Status = Active) TAKE ONE TABLET BY MOUTH ONCE DAILY TO PREVENT FLUID/CONTROL BLOOD PRESSURE Rx# [id number] Last Released: 07/01/24 Qty/Days Supply: Rx Expiration Date: 03/28/25 Refills Remainin Indication: FOR HIGH BLOOD PRESSURE OUTPT LORATADINE 10MG TAB (Status = Active) TAKE ONE TABLET BY MOUTH ONCE DAILY FOR ALLERGY FOR ALLERGY Rx# [id number] Last Released: 06/11/24 Qty/Days Supply: Rx Expiration Date: 06/12/25 Refills Remainin Indication: FOR ALLERGY OUTPT MECLIZINE HCL 25MG TAB (Status = ) TAKE ONE TABLET BY MOUTH THREE TIMES DAILY NEEDED FOR DIZZINESS Rx# [id number] Last Released: 06/11/24 Qty/Days Supply: Rx Expiration Date: 07/11/24 Refills Remainin Indication: FOR DIZZINESS Non-VA MULTIVITAMIN/MINERALS CAP/TAB TAKE ONE TABLET BY MOUTH ONCE DAILY OUTPT OMEPRAZOLE 20MG EC CAP (Status = Active) TAKE ONE CAPSULE BY MOUTH EVERY MORNING 30 MINUTES BEFORE BREAKFAST FOR GASTROESOPHAGEAL REFLUX DISEASE Rx# [id number] Last Released: 06/11/24 Qty/Days Supply: Rx Expiration Date: 06/12/25 Refills Remainin Indication: FOR GASTROESOPHAGEAL REFLUX DISEASE OUTPT SIMVASTATIN 40MG TAB (Status = Active) TAKE ONE-HALF TABLET BY MOUTH AT BEDTIME FOR CHOLESTEROL Rx# [id number] Last Released: 04/08/24 Qty/Days Supply: Rx Expiration Date: 03/28/25 Refills Remainin Indication: FOR HIGH CHOLESTEROL SUPPLIES /es/ Jessica Goldstein MD Otolaryngology Signed: 07/17/2024 11:05 07/22/2024 ADDENDUM STATUS: COMPLETED Allergy results negative. f/u 3 months. /sundeep/ Jessica Goldstein MD Otolaryngology Signed: 07/22/2024 16:04 [facility]
--- OUTSIDE RECORDS SUMMARY | 2024-11-19 13:29 | XMS_ITS ---
Author Name [facility] [place] Organization [facility] [place] Address [address] [place] [address] Care Team Providers Care Sales Ambassador Name Role Phone CHELA BELL Primary Care Provider Unavailabl e Selected Encounter This section includes the information on record at [place] for the Encounter. Date/Time Encounter Type Encounter Description Reason Pro vider Source Apr 09, 2024 11:56 AM Outpatient Encounter PRIMARY CARE/MEDICINE IHE Encounter Template Text not used by [place] Plan of Treatment: Future Appointments (+ 6 months) and Future Tests (+/- 45 days) The Plan of Treatment section includes future care activities for the patient from all [place] treatmentfacilities. This section includes future appointments and future orders which are active, pending or scheduled. Future Appointments This section includes appointments that were scheduled to occur 6 months from the date of the Encounter, up to a maximum of 20 appointments. The data comes from all [place] treatment facilities. Appointment Date/Time Appointment Type Appointme nt Facility Name Apr 24, 2024 08:15 AM AM[place]ULATORY [place]ICINE [place] [facility] [place] [facility] Jun 11, 2024 11:30 AM AMBULATORY - [place]ICINE [place] [facility] [place] [facility] Jul 17, 2024 09:00 AM AMBULATORY - MEDICINE [place] [facility] [place] [facility] Aug 14, 2024 10:00 AM AMBULATORY - SURGERY [facility] [place] [facility] Aug 14, 2024 11:00 AM AMBULATORY - SURGERY [facility] [place] [facility] Aug 30, 2024 01:15 PM AMBULATORY - NONE [facility] [place] [facility] Lab Results: +/- 30 days of the encounter This section includes the Chemistry and Hematology Lab Results on record with [place] for the patient. Radiology Reports and Pathology Reports are provided separately, in subsequent sections. Lab Results This section contains the Chemistry/Hematology Results that were resulted 30 days before or 30 daysafter the date of the Encounter. Date/Time Source Result Type Result - Unit Interpretation Reference Range Comment Apr 09, 2024 12:56 PM [facility] LIPID PANEL FASTING Specimen Type: SERUM No comment entered. Ordering Provider: CHELA BELL Report Released Date/Time: Apr 09, 2024 11:38 AM Reporting Lab: [address] [address] Performing Lab: [address] [phone] CHOLESTEROL 198 mg/dL TRIGLYCERIDE 97 mg/dL 0-150 LDL calculated 113 mg/dL 0-129 CHOL/HDL 3.0 HDL CHOLESTEROL 66 mg/dL H 40-60 Apr 09, 2024 12:56 PM [facility] LIVER FUNCTION Specimen Type: SERUM No comment entered. Ordering Provider: CHELA BELL Report Released Date/Time: Apr 09, 2024 11:38 AM Reporting Lab: [address] [address] Performing Lab: [address] [address] PROTEIN,TOTAL 6.3 g/dL 6.0-8.3 ALBUMIN 4.1 g/dL 3.5-5.0 ALKALINE PHOSPHATASE 63 U/L 40-150 AST 16 U/L 5-34 ALT 16 U/L BILIRUBIN, TOTAL 0.7 mg/dL 0.2-1.2 Apr 09, 2024 12:56 PM [facility] BASIC METABOLIC PANEL (non-fasting) Specimen Type: SERUM No comment entered. Ordering Provider: CHELA BELL Report Released Date/Time: Apr 09, 2024 11:38 AM Reporting Lab: [address] [address] Performing Lab: [facility] [address] [facility] [address] UREA NITROGEN 18 mg/dL 7-25 GLUCOSE 91 mg/dL 65-100 SODIUM 139 mmol/L 135-145 POTASSIUM 4.0 mmol/L 3.5-5.0 CHLORIDE 103 mmol/L 100-110 CO2 26 meq/L 20-30 CREATININE, Serum 0.80 mg/dL 0.50-1.40 eGFR(CKD-EPI 2020) 83 mL/min >60 Apr 09, 2024 12:56 PM [facility] HEMOGLOBIN A1C PANEL Specimen Type: BLOOD [...] Apr 09, 2024 11:38 AM Reporting Lab: [facility] [address] [facility] [address] Performing Lab: [facility] [address] [facility] [address] HEMOGLOBIN A1C 5.5 4.0-5.6 Apr 09, 2024 12:56 PM [facility] TSH Specimen Type: SERUM No comment entered. Ordering Provider: CHELA BELL Report Released Date/Time: Apr 09, 2024 11:38 AM Reporting Lab: [facility] [address] [facility] [address] Performing Lab: [facility] [address] [facility] [address] TSH 2.17 u[IU]/mL 0.35-5.00 Apr 09, 2024 12:56 PM [facility] CBC AND DIFF (AUTO) Specimen Type: BLOOD No comment entered. Ordering Provider: CHELA BELL Report Released Date/Time: Apr 09, 2024 11:38 AM Reporting Lab: [facility] [address] [facility] [address] Performing Lab: [place] LEATHA MARILUMoriah [facility] [address] [facility] [address] WBC 5.61 10*3/uL 4.50-11.00 RBC 4.66 10*6/uL 3.93-5.16 HGB 13.7 g/dL 12-15.2 HCT 41.2 36.6-45.6 MCV 88.4 fL 82-99 MCHC 33.3 g/dL 30.8-35.1 PLT 315 10*3/uL 140-360 RDW-CV 12.7 12.0-16.0 [place], Abs 0.49 10*3/uL 0.30-1.10 MCH 29.4 pg 26.2-32.6 Neut % 60.9 43.7-75.8 Lymph % 27.8 14.0-42.3 [place] % 8.7 5.1-13.7 Eos % 1.6 0.4-6.8 [...] Source Apr 09, 2024 11:50 AM 122/78 [facility] [place] [facility] Apr 09, 2024 11:16 AM 98.4 66 146/83 14 97 0 195 31 [facility] Social History: Smoking Status (Most current) and Tobacco Use (All prior to encounter date) This section includes the most current, and the historical, smoking and tobacco- related health factors from the [place] facility where the Encounter took place. Current Smoking Status This section includes the most current smoking, or tobacco-related health factor, from the [place] facility where the Encounter took place. Date/Time Current Smoking Status Comment Rick calles Nov 23, 2023 12:07 PM VA-TOBACCO FORMER USER [place] [facility] [place] [facility] Tobacco Use History This section includes a history of the smoking, or tobacco-related health factors, that were collected on or before the date of the Encounter. The data comes from the [place] facility where the Encounter took place. Date/Time Smoking Status/Tobacco Use Comment Hollis moran Nov 23, 2023 12:07 PM VA-TOBACCO QUIT 15 YRS OR MORE [facility] [place] [facility] Jul 13, 2022 10:30 AM VA-TOBACCO NEVER USED [place] [facility] [place] [facility] Jun 09, 2021 11:00 AM VA-TOBACCO NEVER USED [facility] [place] [facility] Feb 20, 2020 03:16 PM VA-TOBACCO NEVER USED [facility] [place] [facility] Feb 11, 2019 10:08 AM VA-TOBACCO NEVER USED [facility] [place] [facility] March 07, 2018 09:17 AM LIFETIME NON-TOBACCO USER [facility] [place] [facility] Jun 01, 2016 10:04 AM LIFETIME NON-TOBACCO USER [facility] [place] [facility] Jun 12, 2012 10:28 AM LIFETIME NON-TOBACCO USER [place] [facility] [place] [facility] Encounter Notes: All associated encounter notes This section contains the clinical notes associated to the Encounter. Date/Time Encounter Note(s) Provider Source Apr 09, 2024 11:56 AM ADMINISTRATIVE NOT E: LOCAL TITLE: ADMINISTRATIVE RECALL NOTE STANDARD TITLE: ADMINISTRATIVE NOTE DATE OF NOTE: APR 09, 2024@11:56 ENTRY DATE: APR 09, 2024@11:57:03 AUTHOR: SUKHI SALINAS EXP COSIGNER: URGENCY: STATUS: COMPLETED HAS orders: RTC orders: Able to contact patient: Spoke to Patient/Patient escrow representative per policy utilizing HIPAA Guidelines. Identity actively confirmed by: Full name, Other:last 4 Patient Information/Action: Additional Comments Albers does not want to schedule annual appt at this time. She will call back next year when ready to schedule. /sundeep/ SUKHI SALINAS Advanced Phonograph Cartridge Assembler Signed: 04/09/2024 11:59 SUKHI SALINAS [facility]
--- OUTSIDE RECORDS SUMMARY | 2024-11-19 13:29 | XMS_ITS ---
Author Name [facility] [place] [facility] [place] [facility] [place] Address [address] [place] [address] Care Team Providers Care Area Development Consultant Name Role Phone CHELA BELL Primary Care Provider Unavailabl e Selected Encounter This section includes the information on record at [place] for the Encounter. Date/Time Encounter Type Encounter Description Reason Provider Source Dec 06, 2023 11:00 AM OFF/OP EST MARCH X REQ PHY/QHP PRIMARY CARE/MEDICINE ICD-10-CM Z04.9 Encounter for examination and observation for unsp reason COURTNEY ARMSTRONG [facility] Encounter Template Text not used by [place] Assessments - Encounter Diagnoses This section includes the primary and secondary diagnoses documented for the Encounter. Date/Time Primary/Secondary Diagnosis Diagnosis Name Provider Source Dec 06, 2023 11:09 AM PRIMARY Encounter for examination and observation for unsp reason COURTNEY ARMSTRONG [facility] Plan of Treatment: Future Appointments (+ 6 months) and Future Tests (+/- 45 days) The Plan of Treatment section includes future care activities for the patient from all [place] treatmentfacilities. This section includes future appointments and future orders which are active, pending or scheduled. Future Appointments This section includes appointments that were scheduled to occur 6 months from the date of the Encounter, up to a maximum of 20 appointments. The data comes from all [place] treatment facilities. Appointment Date/Time Appointment Type Appointme nt Facility Name March 20, 2024 09:00 AM AMBULATORY - MEDICINE [facility] Apr 09, 2024 11:00 AM [place] - [place]INE [place] [facility] [place] [facility] Apr 24, 2024 08:15 AM [place]ORY [place]ICINE [place] [facility] [place] [facility] Vital Signs: All taken on the encounter date This section contains inpatient and outpatient Vital Signs collected on the date of the Encounter. Date/Time Temperature Pulse Blood Pressure Respiratory Rate SP02 Pain Height Weight Body Mass Index Source Dec 06, 2023 10:58 AM 98 81 142/85 16 98 1 [place] [facility] [place] [facility] Social History: Smoking Status (Most current) and Tobacco Use (All prior to encounter date) This section includes the most current, and the historical, smoking and tobacco- related health factors from the [place] facility where the Encounter took place. Current Smoking Status This section includes the most current smoking, or tobacco-related health factor, from the [place] facility where the Encounter took place. Date/Time Current Smoking Status Comment Facil ity Nov 23, 2023 12:07 PM VA-TOBACCO FORMER USER [place] [facility] [place] [facility] Tobacco Use History This section includes a history of the smoking, or tobacco-related health factors, that were collected on or before the date of the Encounter. The data comes from the [place] facility where the Encounter took place. Date/Time Smoking Status/Tobacco Use Comment F acility Nov 23, 2023 12:07 PM VA-TOBACCO QUIT 15 YRS OR MORE [facility] [place] [facility] Jul 13, 2022 10:30 AM VA-TOBACCO NEVER USED [facility] [place] [facility] Jun 09, 2021 11:00 AM VA-TOBACCO NEVER USED [facility] [place] [facility] Feb 20, 2020 03:16 PM VA-TOBACCO NEVER USED [facility] [place] [facility] Feb 11, 2019 10:08 AM VA-TOBACCO NEVER USED [facility] [place] [facility] March 07, 2018 09:17 AM LIFETIME NON-TOBACCO USER [facility] [place] [facility] Jun 01, 2016 10:04 AM LIFETIME NON-TOBACCO USER [facility] [place] [facility] Jun 12, 2012 10:28 AM LIFETIME NON-TOBACCO USER [facility] [place] [facility] Encounter Notes: All associated encounter notes This section contains the clinical notes associated to the Encounter. Date/Time Encounter Note(s) Provider Source Dec 06, 2023 10:59 [facility]: LOCAL TITLE: AMBULATORY/OUTPATIENT CARE NOTE STANDARD TITLE: PRIMARY CARE OUTPATIENT NOTE DATE OF NOTE: DEC 06, 2023@10:59 ENTRY DATE: DEC 06, 2023@11:00:03 AUTHOR: COURTNEY ARMSTRONG COSIGNER: URGENCY: STATUS: COMPLETED AMBULATORY/OUTPATIENT CARE NOTE Has ADDENDA F: Walk-in D/A: Corla presents to the Primary care clinic with c/o continued sinus symptoms. Coral was seen on 11/23/23 for acute bacterial rhinosinusitis and given a 7 day course of Amoxicillin. Corla says that she was feeling better but a few days after finishing the antibiotic her symptoms returned. Coral reports dry cough, sore throat, slight nasal congestion, right ear pressure, tooth pain on the right side and sinus pressure on the right side of her face. Denies headaches, shortness of breath, chest pain, fever, chills, or n/v/d. Coral has been taking OTC Robitussin for cough. She says that her house is very dry. She has forced air for heat- oil. Coral does not have a humidifier. JANET Ashraf in to evaluate Coral. /sundeep/ COURTNEY ARMSTRONG, MSN, RN, CNL PRIMARY CARE TEAM NURSE Signed: 12/06/2023 11:09 Receipt Acknowledged By: 12/06/2023 12:42 /sundeep/ JANET HOLM Nurse Practitioner 12/06/2023 ADDENDUM STATUS: COMPLETED She reports feeling better in terms of sinus and head congestion but right ear feels full and clogged. She states she went out to but wax kit for removal but never started using it. She denies fevers loss of hearing or balance issues just feeling like ear is full and concerns about possible infection. She finished her course of Abx that I gave her for ABRS she is drinking fluids, eating well no issues with Bowel/Bladder denies n/v/d Head: Normocephalic, atraumatic Eyes: EOMI no nystagmus, PERRLA, Palpebral folds appropriate width, no drooping, sclera white, conjunctiva pink without exudate or edema. Ears: Symmetrical no deformities, Auricles palpable without tenderness, Left TM well visualized pearly wilde no cerumen foreign body or drainage no erythema right TM only partially visualized she has large amount of dried wax was able to see TM at 12:00 to 2:00 without erythema or effusion Nose: Patent nares, no nasal discharge or congestion, no tenderness on frontal and maxillary sinuses, nasal mucosa pink and moist Advised she go home to use the debrox she bought, if no relief should return to see nurse for possible irrigation /es/ JANET HOLM Nurse Practitioner Signed: 12/06/2023 12:46 COURTNEY ARMSTRONG [facility]
--- OUTSIDE RECORDS SUMMARY | 2024-11-19 13:29 | XMS_ITS | Encounter Summary ---
Author Name [facility] [place] Organization [facility] [place] Address [address] [place] [address] Care Team Providers Care Trimming Machine Operator Name Role Phone JENNIFER BELL Primary Care Provider Unavailabl e Selected Encounter This section includes the information on record at [place] for the Encounter. Date/Time Encounter Type Encounter Description Reason Provider Source Dec 13, 2023 02:37 PM Outpatient Encounter TELEPHONE TRIAGE LEANN ALEXANDER Encounter Template Text not used by [place] Plan of Treatment: Future Appointments (+ 6 [...] 20, 2024 09:00 AM [facility] [place] [facility] Apr 09, 2024 11:00 AM [facility] [place] [facility] Apr 24, 2024 08:15 AM [facility] [place] [facility] Jun 11, 2024 11:30 AM [facility] [place] [facility] Social History: Smoking Status (Most current) [...] 23, 2023 12:07 PM VA-TOBACCO FORMER USER [place] [facility] [place] [facility] Tobacco Use History This section includes a history of the smoking, or tobacco-related health factors, that were collected on or before the date of the Encounter. The data comes from the [place] facility where the Encounter took place. Date/Time Smoking Status/Tobacco Use Comment Hollis moran Nov 23, 2023 12:07 PM VA-TOBACCO QUIT 15 YRS OR MORE [facility] [place] [facility] Jul 13, 2022 10:30 AM VA-TOBACCO NEVER USED [facility] [place] [facility] Jun 09, 2021 11:00 AM VA-TOBACCO NEVER USED [facility] [place] [facility] Feb 20, 2020 03:16 PM VA-TOBACCO NEVER USED [facility] [place] [facility] Feb 11, 2019 10:08 AM VA-TOBACCO NEVER USED [facility] [place] [facility] March 07, 2018 09:17 AM LIFETIME NON-TOBACCO USER [facility] [place] [facility] Jun 01, 2016 10:04 AM LIFETIME NON-TOBACCO USER [facility] [place] [facility] Jun 12, 2012 10:28 AM LIFETIME NON-TOBACCO USER [facility] [place] [facility] Encounter Notes: All associated encounter notes This section contains the clinical notes associated to the Encounter. Date/Time Encounter Note(s) Provider Source Dec 14, 2023 02:44 PM ADDENDUM: LOCAL TITLE: Addendum STANDARD TITLE: ADDENDUM DATE OF NOTE: DEC 14, 2023@14:44:20 ENTRY DATE: DEC 14, 2023@14:44:21 AUTHOR: COURTNEY ARMSTRONG EXP COSIGNER: URGENCY: STATUS: COMPLETED Please call and offer a F2F appointment with Jennifer /sundeep/ COURTNEY ARMSTRONG, MSN, RN, CNL PRIMARY CARE TEAM NURSE Signed: 12/14/2023 14:45 Receipt Acknowledged By: 12/14/2023 15:15 /sundeep/ SUKHI SALINAS Advanced Buckle Gluer === --- Original Document --- 12/13/23 CCC: CLINICAL TRIAGE: Patient Demographics Patient Name: LEXUS DASILVA Patient Primary Address: [address] [place] [id number] Patient Primary Phone: [phone] Patient : 1960 Patient Age: 63 Caller/Recipient Relation to Patient: Self Emergency Contact: null UNK Triage Summary Conducted triage/discussed symptoms Pain Score: 8 (Severe Pain) Utilized the Triage Tool: Yes Chief Complaint: Ear Pain System WHEN: Within 24 Hours Nurse's Recommendation / WHEN: Within 24 Hours System WHERE: Clinic Nurse's Recommendation / WHERE: Clinic/[facility] Patient Disposition Patient/Caregiver agrees to plan of care: No Patient WHERE: Appointment Patient WHEN: Within 8 hours Nursing Plan and Disposition Referred Patient for In-Person Appt Other course(s) of action Transferred patient to Sched & Admin-Apt Generated msg to PACT/Provider Provided guidance for worsening symptoms: *Caller/Patient* advised to call facilities [place] Clinical Contact Center or seek immediate medical attention for new or worsening symptoms Alternative course of action Alternative courses of action: UCC/ER Nurse Summary Nurse Summary: Received call from [place]. [place] c/o intermittent left ear pain and her left ear feels blocked for the last 6 days. States her sx are worse at night when she is laying down. 2-3/10 pain scale and 9/10 pain scale when laying down. Taking Ibuprofen or aspirin at night so she can sleep. has vertigo that began today and states she has a history of this and normally will take meclizine for it. Requesting a prescription for meclizine to be picked up at the [place]. States she does not have any. See ROS. Directed to seek care within [address]irected not to drive self due to vertigo. [place] requesting a f2f appt with PCP for today as she is off from work. Declined option of UCC. ER precautions provided. Information forwarded to PACT for review and follow up. Clinical Contact Center Codes Clinic/Location: V1 [facility] PHONE CCC RN TXCC Triage Complete Triage Note: Phone Triage 13 Dec 2023 19:24:43 +0000 [facility] Demographics 63 y/o Female Results CC: Ear Pain Software suggested: Within 24 Hours Software suggested follow-up location: Clinic, consider [facility] care Values and Measures Duration of CC: 6 Days Positive Responses HPI: ear pain, moderate to severe HPI: hearing loss, with ear pain VS: temperature not taken Negative Responses Denies: HPI: ear canal discharge, exudative Denies: HPI: ear canal erythema, worsening Denies: HPI: ear canal swelling Denies: HPI: ear pain, severe Denies: HPI: ear pain, worsens with traction on pinnae Denies: HPI: ear pinna erythema, worsening Denies: HPI: nasal congestion, duration longer than 2 days Denies: HPI: pain, maxillary or frontal sinuses Denies: HPI: rhinorrhea, yellow or brown Denies: HPI: sore throat Denies: HPI: vomiting Denies: MEDS: chemotherapy Denies: PMH: diabetes Denies: PMH: HIV positive Denies: PSH: organ transplant /es/ LEANN ALEXANDER RN Signed: 12/13/2023 14:37 Receipt Acknowledged By: * AWAITING SIGNATURE * COURTNEY ARMSTRONG 12/13/2023 14:51 /sundeep/ Columba Dillon RN Primary Care Staff Nurse 12/14/2023 ADDENDUM STATUS: COMPLETED MSA lm to call for appt. /sundeep/ SUKHI SALINAS Advanced Buckle Gluer Signed: 12/14/2023 15:15 COURTNEY ARMSTRONG [place] [facility] Dec 13, 2023 02:37 PM RN PROGRESS NOTE: LOCAL TITLE: CCC: CLINICAL TRIAGE STANDARD TITLE: RN PROGRESS NOTE DATE OF NOTE: DEC 13, 2023@14:37:52 ENTRY DATE: DEC 13, 2023@14:37:52 AUTHOR: LEANN ALEXANDER EXP COSIGNER: URGENCY: STATUS: COMPLETED CCC: CLINICAL TRIAGE Has ADDENDA Patient Demographics Patient Name: LEXUS DASILVA Patient Primary Address: [address] [place] [id number] Patient Primary Phone: [phone] Patient : 1960 Patient Age: 63 Caller/Recipient Relation to Patient: Self Emergency Contact: null UNK Triage Summary Conducted triage/discussed symptoms Pain Score: 8 (Severe Pain) Utilized the Triage Tool: Yes Chief Complaint: Ear Pain System WHEN: Within 24 Hours Nurse's Recommendation / WHEN: Within 24 Hours System WHERE: Clinic Nurse's Recommendation / WHERE: Clinic/[facility] Patient Disposition Patient/Caregiver agrees to plan of care: No Patient WHERE: Appointment Patient WHEN: Within 8 hours Nursing Plan and Disposition Referred Patient for In-Person Appt Other course(s) of action Transferred patient to Sched & Admin-Apt Generated msg to PACT/Provider Provided guidance for worsening symptoms: *Caller/Patient* advised to call facilities [place] Clinical Contact Center or seek immediate medical attention for new or worsening symptoms Alternative course of action Alternative courses of action: UCC/ER Nurse Summary Nurse Summary: Received call from [place]. [place] c/o intermittent left ear pain and her left ear feels blocked for the last 6 days. States her sx are worse at night when she is laying down. 2-3/10 pain scale and 9/10 pain scale when laying down. Taking Ibuprofen or aspirin at night so she can sleep. has vertigo that began today and states she has a history of this and normally will take meclizine for it. Requesting a prescription for meclizine to be picked up at the [place]. States she does not have any. See ROS. Directed to seek care within [address] hours. [address]irected not to drive self due to vertigo. [place] requesting a f2f appt with PCP for today as she is off from work. Declined option of UCC. ER precautions provided. Information forwarded to PACT for review and follow up. Clinical Contact Center Codes Clinic/Location: V1 [facility] PHONE CCC RN TXCC Triage Complete Triage Note: Phone Triage 13 Dec 2023 19:24:43 +0000 [facility] Demographics 63 y/o Female Results CC: Ear Pain Software suggested: Within 24 Hours Software suggested follow-up location: Clinic, consider virtual care Values and Measures Duration of CC: 6 Days Positive Responses HPI: ear pain, moderate to severe HPI: hearing loss, with ear pain VS: temperature not taken Negative Responses Denies: HPI: ear canal discharge, exudative Denies: HPI: ear canal erythema, worsening Denies: HPI: ear canal swelling Denies: HPI: ear pain, severe Denies: HPI: ear pain, worsens with traction on pinnae Denies: HPI: ear pinna erythema, worsening Denies: HPI: nasal congestion, duration longer than 2 days Denies: HPI: pain, maxillary or frontal sinuses Denies: HPI: rhinorrhea, yellow or brown Denies: HPI: sore throat Denies: HPI: vomiting Denies: MEDS: chemotherapy Denies: PMH: diabetes Denies: PMH: HIV positive Denies: PSH: organ transplant /sundeep/ LEANN ALEXANDER RN Signed: 12/13/2023 14:37 Receipt Acknowledged By: 12/15/2023 13:36 /sundeep/ COURTNEY ARMSTRONG, MSN, RN, CNL PRIMARY CARE TEAM NURSE 12/13/2023 14:51 /sundeep/ Columba Dillon [employer]orer [employer] Staff Nurse 12/14/2023 ADDENDUM STATUS: COMPLETED Please call and offer a F2F appointment with Jennifer /sundeep/ COURTNEY ARMSTRONG, MAYLIN, RN, CNL PRIMARY CARE TEAM NURSE Signed: 12/14/2023 14:45 Receipt Acknowledged By: 12/14/2023 15:15 /sundeep/ SUKHI SALINAS Advanced Buckle Gluer 12/14/2023 ADDENDUM STATUS: COMPLETED DESMOND lm to call for appt. /sundeep/ SUKHI SALINAS Advanced Buckle Gluer Signed: 12/14/2023 15:15 12/15/2023 ADDENDUM STATUS: COMPLETED DESMOND called to offer 12/15 appt at 11:30. did not want to come in for appt. She wanted a Rx for Meclozine for ear pain and dizziness. She hasn't used the med in a couple years. It doesnp't happen all the time she says and is only feeling slight pressure. She does not want to take time off work right now. If she feels an appt is needed, she will go to sick call. /sundeep/ SUKHI SALINAS Advanced Buckle Gluer Signed: 12/15/2023 08:11 LEANN ALEXANDER [facility]
--- OUTSIDE RECORDS SUMMARY | 2024-11-19 13:31 | XMS_ITS ---
Author Name [facility] [place] Organization [facility] [place] [place] Address [address] [place] [address] Care Team Providers Care Intelligence Operations Name Role Phone CHELA BELL Primary Care Provider Unavailabl e Selected Encounter This section includes the information on record at [place] for the Encounter. Date/Time Encounter Type Encounter Description Reason Provider Source Oct 16, 2024 03:00 PM OFFICE O/P EST LOW 20 MIN OTOLARYNGOLOGY/ENT ICD-10-CM J30.89 Other allergic rhinitis JESSICA GOLDSTEIN [facility] Encounter Template Text not used by [place] Assessments - Encounter Diagnoses This section includes the primary and secondary diagnoses documented for the Encounter. Date/Time Primary/Secondary Diagnosis Diagnosis Name Provider Source Oct 16, 2024 03:27 PM PRIMARY Other allergic rhinitis [facility] Vital Signs: All taken on the encounter date This section contains inpatient and outpatient Vital Signs collected on the date of the Encounter. Date/Time Temperature Pulse Blood Pressure Respiratory Rate SP02 Pain Height Weight Body Mass Index Source Oct 16, 2024 03:08 PM 96.6 79 163/61 16 98 0 191 30 [facility] Social History: Smoking Status (Most current) and Tobacco Use (All prior to encounter date) This section includes the most current, and the historical, smoking and tobacco- related health factors from the [place] facility where the Encounter took place. Current Smoking Status This section includes the most current smoking, or tobacco-related health factor, from the [place] facility where the Encounter took place. Date/Time Current Smoking Status Comment Rick calles Nov 23, 2023 12:07 PM VA-TOBACCO FORMER USER [place] [facility] [place] [facility] Tobacco Use History This section includes a history of the smoking, or tobacco-related health factors, that were collected on or before the date of the Encounter. The data comes from the [place] facility where the Encounter took place. Date/Time Smoking Status/Tobacco Use Comment Hollis acsterling Nov 23, 2023 12:07 PM VA-TOBACCO QUIT 15 YRS OR MORE [place] [facility] [place] [facility] Jul 13, 2022 10:30 AM VA-TOBACCO NEVER USED [place] [facility] [place] [facility] Jun 09, 2021 11:00 AM VA-TOBACCO NEVER USED [facility] [place] [facility] Feb 20, 2020 03:16 PM VA-TOBACCO NEVER USED [facility] [place] [facility] Feb 11, 2019 10:08 AM VA-TOBACCO NEVER USED [place] [facility] [place] [facility] March 07, 2018 09:17 AM LIFETIME NON-TOBACCO USER [place] [facility] [place] [facility] Jun 01, 2016 10:04 AM LIFETIME NON-TOBACCO USER [place] [facility] [place] [facility] Jun 12, 2012 10:28 AM LIFETIME NON-TOBACCO USER [place] [facility] [place] [facility] Encounter Notes: All associated encounter notes This section contains the clinical notes associated to the Encounter. Date/Time Encounter Note(s) Provider Source Oct 16, 2024 03:22 PM OTOLARYNGOLOGY NOTE: LOCAL TITLE: OTOLARYNGOLOGY CLINIC NOTE STANDARD TITLE: OTOLARYNGOLOGY NOTE DATE OF NOTE: OCT 16, 2024@15:22 ENTRY DATE: OCT 16, 2024@15:22:25 AUTHOR: JESSICA GOLDSTEIN EXP COSIGNER: URGENCY: STATUS: COMPLETED OCT 16, 2024 LEXUS DASILVA is a 64 y/o NON-SMOKER WHITE FEMALE, previously in [employer] FROM Apr TO Feb from [facility] [place], f/u of POSTNASAL DRIP, COUGH, BLOCKED EARS 64-year-old female here for follow-up of her postnasal drip, cough, and blocked ears. She states that her symptoms have definitely improved. She is now only taking the Flonase and Claritin as needed. She states that she only has a few days consecutively where she might have symptoms and is never that bothersome. She no longer has a cough. Patient had allergy testing that showed absolutely no allergies and an IgE level of 4. She states that when she does have mild symptoms the Flonase and antihistamine help a lot. PV: 63-year-old female here for intermittent postnasal drip, [...] weeks. Then in May she was in [place]. While there she was in a moldy [employer] basement and she again began to have significant symptoms of voice change, postnasal drip, feelings like she had a cold, and blocked ears. This also last several weeks. PMHx: Active problems - Computerized Problem List is the source for the followin. Rhinitis 2. Hypertension 3. Obesity 4. Hyperlipidemia 5. Bereavement MEDS: Active Outpatient Medications (including Supplies): FLUTICASONE PROP 50MCG 120D NASAL INHL INSTILL 2 SPRAYS ACTIVE INTO EACH NOSTRIL ONCE DAILY Indication: FOR NASAL IRRITATION/INFLAMMATION HYDROCHLOROTHIAZIDE 25MG TAB TAKE ONE TABLET BY MOUTH ONCE ACTIVE DAILY TO PREVENT FLUID/CONTROL BLOOD PRESSURE Indication: FOR HIGH BLOOD PRESSURE LORATADINE 10MG TAB TAKE ONE TABLET BY MOUTH ONCE DAILY ACTIVE Indication: FOR ALLERGY OMEPRAZOLE 20MG EC CAP TAKE ONE CAPSULE BY MOUTH EVERY ACTIVE MORNING 30 MINUTES BEFORE BREAKFAST Indication: FOR GASTROESOPHAGEAL REFLUX DISEASE SIMVASTATIN 40MG TAB TAKE ONE-HALF TABLET BY MOUTH AT ACTIVE BEDTIME FOR CHOLESTEROL Indication: FOR HIGH CHOLESTEROL Non-VA MULTIVITAMIN/MINERALS CAP/TAB 1 TABLET BY MOUTH ACTIVE ONCE DAILY ALL: Patient has answered NKA Fam Hx: Non - contributory Soc Hx: NON-SMOKER ROS: Denies any other relavent ROS Vitals Enter at: Oct 16, 2024@15:08:11 BP: 163/61 P: 79 R: 16 T: 96.6 191 lb [86.64 kg] (10/16/2024 15:08) BMI: 30.0 CONSTITUTION: GENERAL APPEARANCE:Well developed, well nourished and groomed. No apparent acute or chronic distress. HEAD, FACE, SALIVARY GLANDS AND TMJ: Palpation of Parotid and Submandibular glands: Normal. Facial Mobility: Normal. EAR, NOSE, MOUTH AND THROAT: Pinnas - normal. Otoscopic exam: RIGHT EAR: External auditory canal normal, tympanic membrane mobile LEFT EAR: External auditory canal normal, tympanic membrane mobile Nasal Interior: Turbinates and middle meatus - Inferior turbinates normal. RESOLVED RHINITIS Normal mucosa with no swelling, polyps, active bleeding or evidence of bleeding. Lips, Teeth and Gums: Lips normal. Oral Cavity and Oropharynx: Oral mucosa with normal color and moisture. Anterior 2/3rds of tongue normal. Breath quality normal. Hard palate normal. Normal floor of mouth, Posterior pharynx normal. ABSENT TONSILS, NO COBBLESTONING THE POSTERIOR PHARYNX NECK AND THYROID: Neck: no adenopathy; no neck masses. Assessment/Plan OCT 16, 2024: 64-year-old female here for follow-up of her postnasal drip, cough, and blocked ears. She states that her symptoms have definitely improved. She is now only taking the Flonase and Claritin as needed. She states that she only has a few days consecutively where she might have symptoms and is never that bothersome. She no longer has a cough. Physical exam shows normal inferior turbinates with no significant rhinitis. Absent tonsils, no cobblestoning of posterior pharynx. 1. Rhinitis -patient's allergy testing showed no allergies. She is therefore experiencing nonallergic rhinitis. Patient symptoms have improved significantly. She will follow-up as needed. I have recommended that she use the Flonase and Claritin daily if her symptoms return. She will follow-up as needed. She is considering trying to learn how to snowboard this winter. I wished her good luck. Complete encounter includes: Review of past medical records Time spent with patient including obtaining history, physical exam, shared decision making, procedures Counseling and answering questions Post visit documentation to include but not limited to medication and lab ordering. Total time = Minimum 35 min MEDICATION RECONCILIATION Outpatient: Has the patient been taking medications as documented in the EMLR? YES: The patient has been taking medications as documented in the EMLR. Essential Medication List for Review used to complete this medication reconciliation. INCLUDED IN THIS LIST: Alphabetical list of active outpatient prescriptions dispensed from this [place] (local) and dispensed from another [place] or [facility] facility (remote) as well as inpatient orders [...] JLV. Allergies/ADRs (Tool #5) FACILITY ALLERGY/ADR -------- [facility] [place] [facility] No Known Allergies [facility] NO KNOWN ALLERGIES Med Recon NoGlossary (Tool #1) INCLUDED IN THIS LIST: Alphabetical list of active outpatient prescriptions dispensed from this [place] (local) and dispensed from another [place] or [facility] facility (remote) as well as inpatient orders (local pending and active), local clinic medications, locally documented non-VA medications, and local prescriptions that have or been discontinued in the past 90 days. Non-VA Meds Last Documented On: Dec 09, 2020 NOTE The display of VA prescriptions dispensed from another [place] or [facility] facility (remote) is limited to active outpatient prescription entries matched to National Drug File at the originating site and may not include some items such as investigational drugs, compounds, etc. NOT INCLUDED IN THIS LIST: Medications self-entered by the patient into personal health records (i.e. [employer]) are NOT included in this list. Non-VA medications documented outside this [place], remote inpatient orders (regardless of status) and remote clinic medications are NOT included in this list. The patient and provider must always discuss medications the patient is taking, regardless of where the medication was dispensed or obtained. OUTPT FLUTICASONE PROP 50MCG 120D NASAL INHL (Status = Active) INSTILL 2 SPRAYS INTO EACH NOSTRIL ONCE DAILY FOR NASAL IRRITATION/INFLAMMATION Rx# [id number] Last Released: 06/11/24 Qty/Days Supply: 12/05 Rx Expiration Date: 06/12/25 Refills Remainin Indication: FOR NASAL IRRITATION/INFLAMMATION OUTPT HYDROCHLOROTHIAZIDE 25MG TAB (Status = Active) TAKE ONE TABLET BY MOUTH ONCE DAILY TO PREVENT FLUID/CONTROL BLOOD PRESSURE Rx# [id number] Last Released: 09/30/24 Qty/Days Supply: Rx Expiration Date: 03/28/25 Refills Remainin Indication: FOR HIGH BLOOD PRESSURE OUTPT LORATADINE 10MG TAB (Status = Active) TAKE ONE TABLET BY MOUTH ONCE DAILY FOR ALLERGY FOR ALLERGY Rx# [id number] Last Released: 06/11/24 Qty/Days Supply: Rx Expiration Date: 06/12/25 Refills Remainin Indication: FOR ALLERGY Non-VA MULTIVITAMIN/MINERALS CAP/TAB TAKE ONE TABLET BY MOUTH ONCE DAILY OUTPT OMEPRAZOLE 20MG EC CAP (Status = Active) TAKE ONE CAPSULE BY MOUTH EVERY MORNING 30 MINUTES BEFORE BREAKFAST FOR GASTROESOPHAGEAL REFLUX DISEASE Rx# [id number] Last Released: 06/11/24 Qty/Days Supply: Rx Expiration Date: 06/12/25 Refills Remainin Indication: FOR GASTROESOPHAGEAL REFLUX DISEASE OUTPT SIMVASTATIN 40MG TAB (Status = Active) TAKE ONE-HALF TABLET BY MOUTH AT BEDTIME FOR CHOLESTEROL Rx# [id number] Last Released: 07/30/24 Qty/Days Supply: Rx Expiration Date: 03/28/25 Refills Remainin Indication: FOR HIGH CHOLESTEROL SUPPLIES /sundeep/ Jessica Goldstein MD Otolaryngology Signed: 10/16/2024 15:28 JESSICA GOLDSTEIN [facility] [place] [facility]
--- OUTSIDE RECORDS SUMMARY | 2024-11-19 13:31 | XMS_ITS ---
Author Name [facility] Address [address] [place] [address] Care Team Providers Care Food And Beverage Checker Name Role Phone CHELA BELL Primary Care Provider Unavailabl e Selected Encounter This section includes the information on record at [place] for the Encounter. Date/Time Encounter Type Encounter Description Reason Pro vider Source Aug 30, 2024 12:00 AM Outpatient Encounter COMMUNITY CARE CONSULT I[facility] Encounter Template Text not used by [place] Plan of Treatment: Future Appointments (+ 6 months) and Future Tests (+/- 45 days) The Plan of Treatment section includes future care activities for the patient from all [place] treatmentfacilities. This section includes future appointments and future orders which are active, pending or scheduled. Future Appointments This section includes appointments that were scheduled to occur 6 months from the date of the Encounter, up to a maximum of 20 appointments. The data comes from all [place] treatment facilities. Appointment Date/Time Appointment Type Appointme nt Facility Name Oct 16, 2024 03:00 PM AMBULATORY - MEDICINE [facility] Social History: Smoking Status (Most current) and Tobacco Use (All prior to encounter date) This section includes the most current, and the historical, smoking and tobacco- related health factors from the [facility] facility where the [facility] took place. Current Smoking Status This section includes the most current smoking, or tobacco-related health factor, from the [place] facility where the Encounter took place. Date/Time Current Smoking Status Comment Rick calles Nov 23, 2023 12:07 PM VA-TOBACCO QUIT 15 YRS OR MORE [facility] Tobacco Use History This section includes a history of the smoking, or tobacco-related health factors, that were collected on or before the date of the Encounter. The data comes from the [place] facility where the Encounter took place. Date/Time Smoking Status/Tobacco Use Comment F acility Nov 23, 2023 12:07 PM VA-TOBACCO QUIT 15 YRS OR MORE [facility] [facility] [place] [facility] Jul 13, 2022 10:30 AM VA-TOBACCO NEVER USED [facility] [facility] [place] [facility] Jun 09, 2021 11:00 AM VA-TOBACCO NEVER USED [place] [facility] [place] [facility] Feb 20, 2020 03:16 PM VA-TOBACCO [place] USED [place] [facility] [place] [facility] Feb 11, 2019 10:08 AM VA-TOBACCO NEVER USED [place] [facility] [place] [facility] March 07, 2018 09:17 AM LIFETIME NON-TOBACCO USER [facility] [facility] [place] [facility] Jun 01, 2016 10:04 AM LIFETIME NON-TOBACCO USER [place] [facility] [place] [facility] Jun 12, 2012 10:28 AM LIFETIME [place]-TOBACCO USER [place] [facility] [place] [facility] Encounter Notes: All associated encounter notes This section contains the clinical notes associated to the Encounter. Date/Time Encounter Note(s) Provider Source Aug 30, 2024 12:00 AM NONVA CONSULT: LOCAL TITLE: COMMUNITY CARE-CONSULT RESULT COLONOSCOPY STANDARD TITLE: NONVA CONSULT DATE OF NOTE: AUG 30, 2024 ENTRY DATE: SEP 28, 2024@09:52:03 AUTHOR: DANIELA BARR EXP COSIGNER: URGENCY: STATUS: COMPLETED VistA Imaging - Scanned Document SCANNED DOCUMENT SIGNATURE NOT REQUIRED Electronically Filed: 09/28/2024 by: DANIELA SOLIMAN [facility]
[2024-11-20 14:40] VITALS: BMI 30.5
--- NOTE | 2024-11-21 09:56 | HO.ANESPROP2 ---
Documented by User: Cherry Barnett NP 11/21/24 09:56 HPI - Anesthesia Eval Consult details Narrative: 64yo F for [facility] Past Medical History Medical History Hyperlipidemia HTN (hypertension) Surgical History Surgical History Hx of elbow surgery H/O colonoscopy Social History Social History Patient Tobacco Use Status: Former Tobacco user Have you been hit, kicked, punched, or otherwise hurt by someone within the past year? If so, by whom?: No Are you DNR?: No Advance Directives: No Advance Directives Information Provided: Yes Meds Allergies Allergy/AdvReac Type Severity Reaction Status Date / Time No Known Allergies Allergy Verified 11/21/24 08:53 Home Medications ?Medication ?Instructions ?Recorded ?Confirmed ?Last Taken ?Type hydrochlorothiazide 25 mg tablet 25 mg PO DAILY 11/20/24 11/20/24 11/20/24 History multivitamin 1 tab PO DAILY 11/20/24 11/20/24 11/20/24 History simvastatin 40 mg tablet 40 mg PO DAILY 11/20/24 11/20/24 11/20/24 History Exam Height,Weight and Vital Signs: Height 5 ft 7 in Weight 88.451 kg Assessment and Plan Assessment Anesthesia Assessment: Chart Reviewed Documented by User: Viridiana Escalera MD 11/22/24 13:51 [facility] Past Medical History Medical History Hyperlipidemia HTN (hypertension) Family History Family history of problems with anesthesia: No Surgical History Surgical History Hx of elbow surgery H/O colonoscopy History of Problems with Anesthesia: No Social History Social History Patient Tobacco Use Status: Former Tobacco user Have you been hit, kicked, punched, or otherwise hurt by someone within the past year? If so, by whom?: No Are you DNR?: No Advance Directives: No Advance Directives Information Provided: Yes Meds Allergies Allergy/AdvReac Type Severity Reaction Status Date / Time No Known Allergies Allergy Verified 11/21/24 08:53 Home Medications ?Medication ?Instructions ?Recorded ?Confirmed ?Last Taken ?Type hydrochlorothiazide 25 mg tablet 25 mg PO DAILY 11/20/24 11/20/24 11/20/24 History multivitamin 1 tab PO DAILY 11/20/24 11/20/24 11/20/24 History simvastatin 40 mg tablet 40 mg PO DAILY 11/20/24 11/20/24 11/20/24 History Exam Height,Weight and Vital Signs: Height 5 ft 7 in Weight 88.451 kg Vital Signs Temp Pulse Resp BP Pulse Ox O2 Del Method 11/22/24 11:37 140/85 H 11/22/24 11:20 9.5 F L 71 20 168/82 H 97 Room Air Airway Mallampati Class: II TM Dist: >3cm Neck ROM: Full Loose/Missing/Broken Teeth: No Heart: RRR Lungs: CTAB Assessment and Plan Assessment Anesthesia Assessment: Anesthesia Plan Discussed and Chart Reviewed Final Anesthetic Review Family History of Problems with Anesthesia: No History of Problems with Anesthesia: No NPO: Yes ASA Class: II Final Preanesthetic Review: No Changes in Pt Med Stat, Meds/Allgs Chart Reviewed, Consent Obtained/Reviewed and Anes Risks/Benef Reviewed Patient Risk: Low Procedure Risk: Low Assessment/Block/Sedation in SS: Assess/Block/Sedation-SS Anesthetic Plan Anesthetic Plan: TIVA Disposition: Standard PACU
[2024-11-22 11:20] VITALS: BP 168/82; PULSE 71; RESP 20; TEMP -12.5; TEMP 9.5; O2SAT 97
[2024-11-22 11:37] VITALS: BP 140/85
[2024-11-22] MEDS: Lactated Ringers 1,000 ML 100 ML IVCONT (11:46)
--- OUTSIDE RECORDS SUMMARY | 2024-11-22 13:34 | XMS_ITS | Continuity of Care Document ---
Author Name [facility] Organization [facility] Care Team Providers Care Food And Nutrition Professor Name Role Phone [facility] Unavailable Unavailable Problems Combined list of problems [...] Chronic pelvic pain of female (SNOMED CT 417586844) Inactive Condition 03/27/2019 [facility] [place] Fibroids, Uterine (ICD-9-CM 218.9) Inactive Condition 03/27/2019 [facility] OVARIAN Inactive Condition 03/27/2019 Jun 12, 2012 Entered By: MELANIE NG Comment: ovarian mass, left [facility] Overweight (SNOMED CT [id number]) Inactive Condition 03/27/2019 [facility] [place] [facility] Diagnosis: ICD-10-CM J30.89 Other allergic rhinitis Active Diagnosis [facility] Diagnosis: ICD-10-CM Z46.0 Encounter for fit/adjst of spectacles and contact lenses Active Diagnosis [facility] Diagnosis: ICD-10-CM H53.9 Unspecified visual disturbance Active Diagnosis [facility] Diagnosis: ICD-10-CM H25.13 Age-related nuclear cataract, bilateral Active Diagnosis [facility] Diagnosis: ICD-10-CM J30.9 Allergic rhinitis, unspecified Active Diagnosis [facility] [place] [facility] Diagnosis: ICD-10-CM I10 Essential (primary) hypertension Active Diagnosis [facility] Diagnosis: ICD-10-CM Z04.9 Encounter for examination and observation for unsp reason Active Diagnosis [facility] [place] [facility] Diagnosis: ICD-10-CM Z71.9 Counseling, unspecified Active [facility] Diagnosis: ICD-10-CM J06.9 Acute upper respiratory infection, unspecified Active Diagnosis [facility] Medications Combined list of outpatient medications from [...] ORAL DISCONT INUED BY PROVIDE R 12/23/2023 [id number] CHELA BELL 2023 21 [facility] BISACODYL 5MG TAB,EC TAKE TWO TABLETS BY MOUTH TWICE DAILY AT 3PM AND 7PM ORAL ACTIVE 12/04/2024 [id number] GA ACOSTA ERT 2023 4 [facility] BISACODYL 5MG TAB,EC TAKE FOUR TABLETS BY MOUTH ONE TIME FOR BOWELS - LAXATIVE ORAL DISCONT INUED (EDIT) 12/03/2024 [id number] GA ACOSTA ERT 2023 4 [facility] FLUTICASONE PROPIONATE 50MCG/SPRAY SOLN,NASAL, 16GM INSTILL 2 SPRAYS INTO EACH NOSTRIL ONCE DAILY FOR NASAL IRRITATI ON/INFLA MMATION NASAL ACTIVE 06/12/2025 [id number] 4 CHELA BELL 2023 1 [facility] FLUTICASONE PROPIONATE 50MCG/SPRAY SOLN,NASAL, 16GM INSTILL 2 SPRAYS INTO EACH NOSTRIL ONCE DAILY FOR NASAL IRRITATI ON/INFLA MMATION NASAL DISCONT INUED 11/15/2024 [id number] 4 ARABELLA, CHELA OLIVIA 2023 1 [facility] [place] HYDROCHLORO THIAZIDE 25MG TAB TAKE ONE TABLET BY MOUTH ONCE DAILY TO PREVENT FLUID/CO NTROL BLOOD PRESSURE ORAL ACTIVE 03/28/2025 [id number] 4 ARABELLA, CHELA OLIVIA 2023 90 [facility] [place] HYDROCHLORO THIAZIDE 25MG TAB TAKE ONE TABLET BY MOUTH ONCE DAILY TO PREVENT FLUID/CO NTROL BLOOD PRESSURE ORAL DISCONT INUED 04/04/2024 [id number] ARABELLA, CHELA OLIVIA 2022 90 [facility] LORATADINE 10MG TAB TAKE ONE TABLET BY MOUTH ONCE DAILY FOR ALLERGY FOR ALLERGY ORAL ACTIVE 06/12/2025 [id number] 4 ARABELLA, CHELA OLIVIA 2023 90 [facility] MECLIZINE HCL 25MG TAB TAKE ONE TABLET BY MOUTH THREE TIMES DAILY NEEDED FOR DIZZINES S ORAL 07/11/2024 [id number] 4 ARABELLA, CHELA OLIVIA 2023 60 [facility] [place] MULTIVITAMI NS W/MINERALS TAB TAKE ONE TABLET BY MOUTH ONCE DAILY ORAL ACTIVE Moriah [place] 2020 [facility] OMEPRAZOLE 20MG CAP,EC TAKE ONE CAPSULE BY MOUTH EVERY MORNING 30 MINUTES BEFORE BREAKFAS T FOR GASTROES OPHAGEAL REFLUX DISEASE ORAL ACTIVE 06/12/2025 [id number] 4 ARABELLA, CHELA OLIVIA 2023 30 [facility] [place] POLYETHYLEN E GLYCOL 3350 PWDR,ORAL TAKE ENTIRE CONTENTS OF 238GM BOTTLE BY MOUTH ONE TIME (MIX WITH CLEAR LIQUID AND DRINK INSTRUCT ED BY GI PROVIDER ) ORAL ACTIVE 12/03/2024 [id number] ACOSTA,GA ERT 2023 238 [facility] [place] [facility] SIMVASTATIN 40MG TAB TAKE ONE-HALF TABLET BY MOUTH AT BEDTIME FOR CHOLESTE ROL ORAL ACTIVE 03/28/2025 [id number] 4 ARABELLA, CHELA OLIVIA 2023 45 [facility] [place] [facility] SIMVASTATIN 40MG TAB TAKE ONE-HALF TABLET BY MOUTH AT BEDTIME FOR CHOLESTE ROL ORAL DISCONT INUED 04/04/2024 [id number] ARABELLA, CHELA OLIVIA 2022 45 [facility] [place] [facility] Immunizations Combined list of available immunizations from the Department of Defense and Veterans Affairs facilities. Immunization Series Date Given Administered By Site Reaction Lot Number CVX Code Drug Dispute Resolution Analyst Status Comments Source DTAP, UNSPECIFIED FORMULATION 2014 107 complet ed Site: Left Deltoid [facility] [place] [facility] Results Combined list of recent chemistry, hematology [...] . ! <0.10 ! 0 ! !Maple (Milam) (t1) IgE . . . . . . ! <0.10 ! 0 ! !Maple (Milam) (t1) IgE . . . . . . ! <0.10 ! 0 ! !Birch (t3) IgE . . . . . . . . . . . . ! <0.10 ! 0 ! !Birch (t3) IgE . . . . . . . . . . . . ! <0.10 ! 0 ! !Mountain Bethel (t6) IgE. . . . . . . . ! <0.10 ! 0 ! !M[place] (t6) IgE. . . . . . . . ! <0.10 ! 0 ! !Stollings (t7) IgE . . . . . . . . . . . . . ! <0.10 ! 0 ! !Stollings (t7) IgE . . . . . . . . . . . . . ! <0.10 ! 0 ! !Elm (t8) IgE . . . . . . . . . . . . . ! <0.10 ! 0 ! !Elm (t8) IgE . . . . . . . . . . . . . ! <0.10 ! 0 ! !Chelsea Tree (t10) IgE. . . . . . . . . ! <0.10 ! 0 ! !Chelsea Tree (t10) IgE. . . . . . . . . ! <0.10 ! 0 ! !Bayard (t11) IgE . . . . . . . . . . ! <0.10 ! 0 ! !Bayard (t11) IgE . . . . . . . . . . ! <0.10 ! 0 ! !Charlotte (t14) IgE . . . . . . . . . ! <0.10 ! 0 ! !Charlotte (t14) IgE . . . . . . . . . ! <0.10 ! 0 ! !White Jer (t15) IgE. . . . . . . . . . ! <0.10 ! 0 ! !White Jer (t15) IgE. . . . . . . . . . ! <0.10 ! 0 ! !White [place] (t70) IgE . . . . . . . ! <0.10 ! 0 ! !White [place] (t70) IgE . . . . . [...] . ! <0.10 ! 0 ! !Sheep Disautel (w18) IgE . . . . . . . . ! <0.10 ! 0 ! !Sheep Disautel (w18) IgE . . . . . [...] performance characteris tics have been determined by [facility] . It has not been cleared or by [facility] . It has not been cleared or [...] used for clinical purposes. Test Performed by [employer], Test Performed by [employer], [employer]bolt, [facility], [address] [place] [address] [place] [address] Moncho Singh M.D., Ph.D., Director of Laboratorie s Moncho Singh M.D., Ph.D., Director of Laboratorie s , CLIA [id number] , CLIA [id number] TEST PERFORMED AT: TEST PERFORMED AT: , , Ordering Provider: AUSTIN GOLDSTEIN Report Released Date/Time: Jul 17, 2024 09:47 AM Reporting Lab: [address] [address] Performing Lab: [facility] [id number] [place] [address] BASIC METABOLIC PANEL (non-fast ing) UREA NITROGEN [MASS/VOLUM E] IN SERUM OR PLASMA 18 mg/dL 7 - 25 04/09 Specimen Type: SERUM No comment entered. Ordering Provider: HARPREET BELL SA Report Released Date/Time: Apr 09, 2024 11:38 AM Reporting Lab: [address] [address] Performing Lab: [address] [address] [facility] BASIC METABOLIC PANEL (non-fast ing) GLUCOSE [MASS/VOLUM E] IN SERUM OR PLASMA 91 mg/dL 65 - 100 04/09 Specimen Type: SERUM No comment entered. Ordering Provider: HARPREET BELL SA Report Released Date/Time: Apr 09, 2024 11:38 AM Reporting Lab: [address] [address] Performing Lab: [address] [place] [address] [facility] BASIC METABOLIC PANEL (non-fast ing) SODIUM [MOLES/VOLU ME] IN SERUM OR PLASMA 139 mmol/L 135 - 145 04/09 Specimen Type: SERUM No comment entered. Ordering Provider: HARPREET BELL SA Report Released Date/Time: Apr 09, 2024 11:38 AM Reporting Lab: [facility] [address] Performing Lab: [facility] TRN [facility] [address] [facility]ITAL[facility] BASIC METABOLIC PANEL (non-fast ing) POTASSIUM [MOLES/VOLU ME] IN SERUM OR PLASMA 4.0 mmol/L 3.5 - 5.0 04/09 Specimen Type: SERUM No comment entered. Ordering Provider: HARPREET BELL SA Report Released Date/Time: Apr 09, 2024 11:38 AM Reporting Lab: [facility] [address] Performing Lab: [facility] [address] [facility] BASIC METABOLIC PANEL (non-fast ing) CHLORIDE [MOLES/VOLU ME] IN SERUM OR PLASMA 103 mmol/L 100 - 110 04/09 Specimen Type: SERUM No comment entered. Ordering Provider: HARPREET BELL SA Report Released Date/Time: Apr 09, 2024 11:38 AM Reporting Lab: [facility] [address] Performing Lab: [facility] TR[facility] [address] [facility]N [facility]ITAL[facility] BASIC METABOLIC PANEL (non-fast ing) CARBON DIOXIDE, TOTAL [MOLES/VOLU ME] IN SERUM OR PLASMA 26 meq/L 20 - 30 04/09 Specimen Type: SERUM No comment entered. Ordering Provider: HARPREET BELL SA Report Released Date/Time: Apr 09, 2024 11:38 AM Reporting Lab: [facility] [place] [facility] [address] [facility] [address] Performing Lab: [facility] W[facility]N [facility] [address] [facility] [address] [facility] BASIC METABOLIC PANEL (non-fast ing) CREATININE [MASS/VOLUM E] IN SERUM OR PLASMA 0.80 mg/dL 0.50 - 1.40 04/09 Specimen Type: SERUM No comment entered. Ordering Provider: HARPREET BELL SA Report Released Date/Time: Apr 09, 2024 11:38 AM Reporting Lab: [facility] [address] [facility] [address] Performing Lab: [facility] W[facility]N [facility] [address] [facility] [address] [facility]ERV[facility]ER[facility] BASIC METABOLIC PANEL (non-fast ing) GLOMERULAR FILTRATION RATE/1.73 SQ M.PREDICTED [VOLUME RATE/AREA] IN SERUM, PLASMA OR BLOOD BY CREATININE- BASED FORMULA (CKD-EPI 2020) 83 mL/min 60 04/09 Specimen Type: SERUM No comment entered. Ordering Provider: HARPREET BELL SA Report Released Date/Time: Apr 09, 2024 11:38 AM Reporting Lab: [facility] [address] [facility] [address] Performing Lab: [facility] TRN [facility] [address] [facility] [address] [facility] LIPID PANEL FASTING CHOLESTEROL [MASS/VOLUM E] IN SERUM OR PLASMA 198 mg/dL 04/09 Specimen Type: SERUM No comment entered. Ordering Provider: HARPREET BELL SA Report Released Date/Time: Apr 09, 2024 11:38 AM Reporting Lab: [facility] W[facility]N [facility] [address] [facility] [address] Performing Lab: [facility] TRN [facility] [address] [facility] [address] [facility] LIPID PANEL FASTING TRIGLYCERID E [MASS/VOLUM E] IN SERUM OR PLASMA 97 mg/dL 0 - 150 04/09 Specimen Type: SERUM No comment entered. Ordering Provider: HARPREET BELL SA Report Released Date/Time: Apr 09, 2024 11:38 AM Reporting Lab: [facility] [place] [facility] [address] [facility] [address] Performing Lab: [facility] [place] [facility] [address] [facility] [address] [facility] [place] [facility] LIPID PANEL FASTING CHOLESTEROL IN LDL [MASS/VOLUM E] IN SERUM OR PLASMA BY CALCULATION 113 mg/dL 0 - 129 04/09 Specimen Type: SERUM No comment entered. Ordering Provider: HARPREET BELL SA Report Released Date/Time: Apr 09, 2024 11:38 AM Reporting Lab: [facility] [place] [facility] [address] [facility] [address] Performing Lab: [facility] [place] [address] [address] [facility] [place] [facility] LIPID PANEL FASTING CHOLESTEROL .TOTAL/CHOL ESTEROL IN HDL [MASS RATIO] IN SERUM OR PLASMA 3.0 04/09 Specimen Type: SERUM No comment entered. Ordering Provider: HARPREET BELL SA Report Released Date/Time: Apr 09, 2024 11:38 AM Reporting Lab: [facility] [place] [facility] [address] [facility] [address] Performing Lab: [facility] [place] [facility] [address] [facility] [address] [place] [facility] [place] [facility] LIPID PANEL FASTING CHOLESTEROL IN HDL [MASS/VOLUM E] IN SERUM OR PLASMA 66 mg/dL 40 - 60 04/09 H Specimen Type: SERUM No comment entered. Ordering Provider: HARPREET BELL SA Report Released Date/Time: Apr 09, 2024 11:38 AM Reporting Lab: [facility] [place] [facility] [address] [facility] [address] Performing Lab: [facility] [place] [address] [address] [facility] [place] [facility] LIVER FUNCTION PROTEIN [MASS/VOLUM E] IN SERUM OR PLASMA 6.3 g/dL 6.0 - 8.3 04/09 Specimen Type: SERUM No comment entered. Ordering Provider: HARPREET BELL SA Report Released Date/Time: Apr 09, 2024 11:38 AM Reporting Lab: [facility] [place] [facility] [address] [facility] [address] Performing Lab: [facility] [place] [facility] [address] [facility] [address] [facility] [place] [facility] LIVER FUNCTION ALBUMIN [MASS/VOLUM E] IN SERUM OR PLASMA 4.1 g/dL 3.5 - 5.0 04/09 Specimen Type: SERUM No comment entered. Ordering Provider: HARPREET BELL SA Report Released Date/Time: Apr 09, 2024 11:38 AM Reporting Lab: [place] [facility] [place] [address] [address] Performing Lab: [facility] [place] [facility] [address] [facility] [address] [facility] [place] [facility] LIVER FUNCTION ALKALINE PHOSPHATASE [ENZYMATIC ACTIVITY/VO LUME] IN SERUM OR PLASMA 63 U/L 40 - 150 04/09 Specimen Type: SERUM No comment entered. Ordering Provider: HARPREET BELL SA Report Released Date/Time: Apr 09, 2024 11:38 AM Reporting Lab: [facility] [place] [facility] [address] [facility] [address] Performing Lab: [facility] [place] [facility] [address] [facility] [address] [facility] [place] [facility] LIVER FUNCTION ASPARTATE AMINOTRANSF ERASE [ENZYMATIC ACTIVITY/VO LUME] IN SERUM OR PLASMA 16 U/L 5 - 34 04/09 Specimen Type: SERUM No comment entered. Ordering Provider: HARPREET BELL SA Report Released Date/Time: Apr 09, 2024 11:38 AM Reporting Lab: [facility] [place] [address] [address] Performing Lab: [place] [facility] [place] [address] [address] [facility] LIVER FUNCTION ALANINE AMINOTRANSF ERASE [ENZYMATIC ACTIVITY/VO LUME] IN SERUM OR PLASMA 16 U/L 04/09 Specimen Type: SERUM No comment entered. Ordering Provider: HARPREET BELL SA Report Released Date/Time: Apr 09, 2024 11:38 AM Reporting Lab: [facility] [address] Performing Lab: [facility] [address] [facility] LIVER FUNCTION BILIRUBIN.T OTAL [MASS/VOLUM E] IN SERUM OR PLASMA 0.7 mg/dL 0.2 - 1.2 04/09 Specimen Type: SERUM No comment entered. Ordering Provider: HARPREET BELL SA Report Released Date/Time: Apr 09, 2024 11:38 AM Reporting Lab: [facility] [address] Performing Lab: [facility] [address] [facility] HEMOGLOBI N A1C PANEL HEMOGLOBIN A1C/HEMOGLO [...] 11:38 AM Reporting Lab: [facility]AMN [address] [address] Performing Lab: [facility] [address] [address] [facility] CBC AND DIFF (AUTO) LEUKOCYTES [#/VOLUME] IN BLOOD BY AUTOMATED COUNT 5.61 10*3/u L 4.50 - 11.00 04/09 Specimen Type: BLOOD No comment entered. Ordering Provider: HARPREET BELL SA Report Released Date/Time: Apr 09, 2024 11:38 AM Reporting Lab: [facility] [place] [facility] [address] [facility] [address] Performing Lab: [facility] [place] [facility] [address] [facility] [address] [facility] [place] [facility] CBC AND DIFF (AUTO) ERYTHROCYTE S [#/VOLUME] IN BLOOD BY AUTOMATED COUNT 4.66 10*6/u L 3.93 - 5.16 04/09 Specimen Type: BLOOD No comment entered. Ordering Provider: HARPREET BELL SA Report Released Date/Time: Apr 09, 2024 11:38 AM Reporting Lab: [facility] [place] [address] [address] Performing Lab: [facility] [place] [facility] [address] [facility] [address] [place] [facility] [place] [facility] CBC AND DIFF (AUTO) HEMOGLOBIN [MASS/VOLUM E] IN BLOOD 13.7 g/dL 12 - 15.2 04/09 Specimen Type: BLOOD No comment entered. Ordering Provider: HARPREET BELL SA Report Released Date/Time: Apr 09, 2024 11:38 AM Reporting Lab: [facility] [place] [address] [address] Performing Lab: [facility] [place] [facility] [address] [facility] [address] [facility] [place] [facility] CBC AND DIFF (AUTO) HEMATOCRIT [VOLUME FRACTION] OF BLOOD BY AUTOMATED COUNT 41.2 36.6 - 45.6 04/09 Specimen Type: BLOOD No comment entered. Ordering Provider: HARPREET BELL SA Report Released Date/Time: Apr 09, 2024 11:38 AM Reporting Lab: [facility] [place] [address] [address] Performing Lab: [facility] [place] [facility] [address] [facility] [address] [facility] [place] CBC AND DIFF (AUTO) MCV [ENTITIC VOLUME] BY AUTOMATED COUNT 88.4 fL 82 - 99 04/09 Specimen Type: BLOOD No comment entered. Ordering Provider: HARPREET BELL SA Report Released Date/Time: Apr 09, 2024 11:38 AM Reporting Lab: [facility] [place] [facility] [address] [facility] [address] Performing Lab: [facility] [place] [facility] [address] [facility] [address] [facility] [place] CBC AND DIFF (AUTO) MCHC [MASS/VOLUM E] BY AUTOMATED COUNT 33.3 g/dL 30.8 - 35.1 04/09 Specimen Type: BLOOD No comment entered. Ordering Provider: HARPREET BELL SA Report Released Date/Time: Apr 09, 2024 11:38 AM Reporting Lab: [facility] [place] [facility] [address] [facility] [address] Performing Lab: [facility] [place] [facility] [address] [facility] [address] [facility] CBC AND DIFF (AUTO) PLATELETS [#/VOLUME] IN BLOOD BY AUTOMATED COUNT 315 10*3/u L 140 - 360 04/09 Specimen Type: BLOOD No comment entered. Ordering Provider: HARPREET BELL SA Report Released Date/Time: Apr 09, 2024 11:38 AM Reporting Lab: [facility] [place] [facility] [address] [facility] [address] Performing Lab: [facility] [place] [facility] [address] [facility] [address] [facility] [place] [facility] CBC AND DIFF (AUTO) ERYTHROCYTE DISTRIBUTIO N WIDTH [RATIO] BY AUTOMATED COUNT 12.7 12.0 - 16.0 04/09 Specimen Type: BLOOD No comment entered. Ordering Provider: HARPREET BELL SA Report Released Date/Time: Apr 09, 2024 11:38 AM Reporting Lab: [facility] [place] [facility] [address] [facility] [address] Performing Lab: [facility] [place] [facility] [address] [facility] [address] [facility] CBC AND DIFF (AUTO) MONOCYTES [#/VOLUME] IN BLOOD BY AUTOMATED COUNT 0.49 10*3/u L 0.30 - 1.10 04/09 Specimen Type: BLOOD No comment entered. Ordering Provider: HARPREET BELL SA Report Released Date/Time: Apr 09, 2024 11:38 AM Reporting Lab: [facility] [place] [facility] [address] [facility] [address] Performing Lab: [facility] [place] [facility] [address] [facility] [address] [facility] CBC AND DIFF (AUTO) MCH [ENTITIC MASS] BY AUTOMATED COUNT 29.4 pg 26.2 - 32.6 04/09 Specimen Type: BLOOD No comment entered. Ordering Provider: HARPREET BELL SA Report Released Date/Time: Apr 09, 2024 11:38 AM Reporting Lab: [facility] [place] [facility] [address] [facility] [address] Performing Lab: [facility] [place] [facility] [address] [facility] [address] [facility] [place] [facility] CBC AND DIFF (AUTO) NEUTROPHILS /100 LEUKOCYTES IN BLOOD BY AUTOMATED COUNT 60.9 43.7 - 75.8 04/09 Specimen Type: BLOOD No comment entered. Ordering Provider: HARPREET BELL SA Report Released Date/Time: Apr 09, 2024 11:38 AM Reporting Lab: [facility] [place] [facility] [address] [facility] [address] Performing Lab: [facility] [place] [facility] [address] [facility] [address] [place] [facility] [place] [facility] CBC AND DIFF (AUTO) LYMPHOCYTES /100 LEUKOCYTES IN BLOOD BY AUTOMATED COUNT 27.8 14.0 - 42.3 04/09 Specimen Type: BLOOD No comment entered. Ordering Provider: HARPREET BELL SA Report Released Date/Time: Apr 09, 2024 11:38 AM Reporting Lab: [facility] [place] [facility] [address] [facility] [address] Performing Lab: [facility] [place] [facility] [address] [facility] [address] [facility] CBC AND DIFF (AUTO) MONOCYTES/1 00 LEUKOCYTES IN BLOOD BY AUTOMATED COUNT 8.7 5.1 - 13.7 04/09 Specimen Type: BLOOD No comment entered. Ordering Provider: HARPREET BELL SA Report Released Date/Time: Apr 09, 2024 11:38 AM Reporting Lab: [facility] [place] [facility] [address] [facility] [address] Performing Lab: [facility] [address] [place] [phone] [facility] CBC AND DIFF (AUTO) EOSINOPHILS /100 LEUKOCYTES IN BLOOD BY AUTOMATED COUNT 1.6 0.4 - 6.8 04/09 Specimen Type: BLOOD No comment entered. Ordering Provider: HARPREET BELL SA Report Released Date/Time: Apr 09, 2024 11:38 AM Reporting Lab: [facility] [address] [place] [phone] Performing Lab: [facility] [address] [place] [phone] [facility] CBC AND DIFF (AUTO) BASOPHILS/1 00 LEUKOCYTES IN BLOOD BY AUTOMATED COUNT 0.5 0.1 - 2.0 04/09 Specimen Type: BLOOD No comment entered. Ordering Provider: HARPREET BELL SA Report Released Date/Time: Apr 09, 2024 11:38 AM Reporting Lab: [facility] [address] [place] [phone] Performing Lab: [facility] [address] [place] [phone] [facility] CBC AND DIFF (AUTO) NEUTROPHILS [#/VOLUME] IN BLOOD BY AUTOMATED COUNT 3.41 10*3/u L 2.20 - 7.60 04/09 Specimen Type: BLOOD No comment entered. Ordering Provider: HARPREET BELL SA Report Released Date/Time: Apr 09, 2024 11:38 AM Reporting Lab: [facility] [address] [address] Performing Lab: [facility] [address] [phone] [facility] CBC AND DIFF (AUTO) LYMPHOCYTES [#/VOLUME] IN BLOOD BY AUTOMATED COUNT 1.56 10*3/u L 1.00 - 3.20 04/09 Specimen Type: BLOOD No comment entered. Ordering Provider: HARPREET BELL SA Report Released Date/Time: Apr 09, 2024 11:38 AM Reporting Lab: [facility] [address] [phone] Performing Lab: [facility] [address] [address] [facility] CBC AND DIFF (AUTO) EOSINOPHILS [#/VOLUME] IN BLOOD BY AUTOMATED COUNT 0.09 10*3/u L 0.03 - 0.44 04/09 Specimen Type: BLOOD No comment entered. Ordering Provider: HARPREET BELL SA Report Released Date/Time: Apr 09, 2024 11:38 AM Reporting Lab: [facility] [address] [address] Performing Lab: [facility] [address] [address] [facility] CBC AND DIFF (AUTO) BASOPHILS [#/VOLUME] IN BLOOD BY AUTOMATED COUNT 0.03 10*3/u L 0.01 - 0.13 04/09 Specimen Type: BLOOD No comment entered. Ordering Provider: HARPREET BELL SA Report Released Date/Time: Apr 09, 2024 11:38 AM Reporting Lab: [facility] [address] [address] Performing Lab: [facility] [address] [facility] [phone] [facility] CBC AND DIFF (AUTO) IMMATURE GRANULOCYTE S/100 LEUKOCYTES IN BLOOD BY AUTOMATED COUNT 0.5 0.0 - 0.7 04/09 Specimen Type: BLOOD No comment entered. Ordering Provider: HARPREET BELL SA Report Released Date/Time: Apr 09, 2024 11:38 AM Reporting Lab: [facility] [address] [facility] [phone] Performing Lab: [facility] [address] [facility] [phone] [facility] CBC AND DIFF (AUTO) IMMATURE GRANULOCYTE S [#/VOLUME] IN BLOOD 0.03 10*3/u L 0.00 - 0.06 04/09 Specimen Type: BLOOD No comment entered. Ordering Provider: HARPREET BELL SA Report Released Date/Time: Apr 09, 2024 11:38 AM Reporting Lab: [facility] [facility] [address] [facility] [phone] Performing Lab: [facility] [facility] [address] [facility] [address] [facility] TSH THYROTROPIN [UNITS/VOLU ME] IN SERUM OR PLASMA 2.17 u[IU]/ mL 0.35 - 5.00 04/09 Specimen Type: SERUM No comment entered. Ordering Provider: HARPREET BELL SA Report Released Date/Time: Apr 09, 2024 11:38 AM Reporting Lab: [facility] [facility] [address] [facility] [phone] Performing Lab: [facility] [address] [address] [facility] Vital Signs Combined list of inpatient and outpatient Vital Signs from Department of Defense and Veterans Affairs, ranging from 12 months to all on record, depending upon the facility. Vital Sign Value Date Comments Source SYSTOLIC BLOOD PRESSURE 163 10/16/20 24 15:08:11 [facility] DIASTOLIC BLOOD PRESSURE [...] [facility] TEMPERATURE 98 12/06/2023 10:58:07 [facility] PULSE 81 12/06/2023 10:58:07 [facility] RESPIRATION 16 12/06/2023 10:58:07 [facility] Encounters Combined list of: 1) Encounters from Department of Veterans Affairs facilities going back up to thelast 18 months. 2) Encounters from the Department of [facility] facilities going back up to 280 months. Location Location Details Encounter Type Encounter Number Reason For Visit Attending Provider ADM Date DC Date Status Disposition Source [facility] Outpatient Encounter [id number] 11/14 [facility] [facility] OFFICE O/P EST MOD 30 MIN [id number] Diagnos is: ICD-10- CM J06.9 Acute upper respira tory infecti on, unspeci fied
ARABELLA,L PORSHA OLIVIA 11/23 [facility] [facility] OFF/OP EST MAY X REQ PHY/QHP [id number] Diagnos is: ICD-10- CM Z71.9 Dehairing Machine Tender ing, unspeci fied
DAILY ARMSTRONG L 11/23 [facility] OFF/OP EST MAY X REQ PHY/QHP [id number] Diagnos is: ICD-10- CM Z04.9 Encount er for examina tion and observa tion for unsp reason< br/> DAILY ARMSTRONG L 12/06 [facility] Outpatient [facility]counter [id number] 12/13 [facility] En[facility] [id number] Greg ALEXANDER 12/13 [facility] En[facility] [id number] 12/14 [facility] Encounter [id number] 03/27 [facility] En[facility] [id number] 04/08 [facility] Encounter [id number] 04/09 [facility] OFFICE O/P EST MOD 30 MIN [id number] Diagnos is: ICD-10- CM I10 Essenti al (primar y) hyperte nsion<b r/> Sondra BELL 04/09 [facility] En[facility] [id number] 04/09 [facility] En[facility] [id number] 04/24 [facility] Encounter [id number] 05/01 [facility] Encounter [id number] 06/10 [facility]counter [id number] 06/10 [facility] OFFICE O/P EST MOD 30 MIN [id number] 1. Diagnos is: ICD-10- CM J30.89 Other allergi c rhiniti s
ARABELLA,L PORSHA OLIVIA 06/11 [facility] Outpatient [facility]counter [id number] 06/11 [facility] [place] OFF/OP CNSLTJ NEW/EST MOD 40 [id number] 1. Diagnos is: ICD-10- CM J30.9 Allergi c rhiniti s, unspeci fied
RADAMES GOLDSTEIN 07/17 [facility] OFFICE O/P EST MOD 30 MIN [id number] 1QA. 43 Diagnos is: ICD-10- CM H25.13 Age-rel ated nuclear catarac t, bilater al
[facility] ER LORE 08/14 [facility] CPTR OPHTH DX IMG POST SEGMT [id number] Diagnos is: ICD-10- CM H53.9 Unspeci fied visual disturb ance
[facility] 08/14 [facility] FIT SPECTACLES MONOFOCAL [id number] 1. Diagnos is: ICD-10- CM Z46.0 Encount er for fit/adj st of spectac les and contact lenses< br/> [facility] 08/14 [facility] [place] Outpatient [facility]counter [id number] 08/30 [facility] [place] [place] [facility] OFFICE O/P EST LOW 20 MIN [id number] Diagnos is: ICD-10- CM J30.89 Other allergi c rhiniti s
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 Social History Type Response Date Comment Sour e Tobacco smoking status NHIS VA-TOBACCO QUIT 15 YRS OR MORE 11/23/2023 [facility] [place] [facility] History of tobacco use ND-TOBACCO FORMER USER 11/23/2023 [facility] [place] [facility] History of tobacco use VA-TOBACCO NEVER USED 07/13/2022 [facility] [place] [facility] History of tobacco use VA-TOBACCO NEVER USED 06/09/2021 [facility] [place] [facility] History of tobacco use VA-TOBACCO NEVER USED 02/20/2020 [facility] [place] [facility] History of tobacco use VA-TOBACCO NEVER USED 02/11/2019 [facility] [place] [facility] History of tobacco use LIFETIME NON-TOBACCO USER 03/07/2018 [facility] [place] [facility] History of tobacco use LIFETIME NON-TOBACCO USER 06/01/2016 [facility] [place] [facility] History of tobacco use LIFETIME NON-TOBACCO USER 06/12/2012 [facility] [facility]
[2024-11-22 14:11] VITALS: BP 127/69; PULSE 64; RESP 20; TEMP 36.1; O2SAT 100
--- NOTE | 2024-11-22 14:14 | PM.OP ---
Brief Operative Note Date of Service: 11/22/24 Pre-op diagnosis: Screening Post-op diagnosis: other (Colon polyps) Procedure: Colonoscopy to the cecum and TI with hot snare polypectomy x 2 with placement of 2 Resolution clips at 40cm Surgeon: Michael Shoemaker MD Anesthesia: MAC Was an Core Assembly Supervisor used for this Procedure?: No Estimated blood loss (mL): 2.0 Pathology: other (A. Polyp at 60 B. Polyp at 40cm) Condition: stable Disposition: PACU
[2024-11-22 14:26] VITALS: BP 139/76; PULSE 60; RESP 20; O2SAT 100
--- NOTE | 2024-11-22 14:35 | OP_ITS ---
DATE OF SERVICE: 11/22/2024 SURGEON: Michael Shoemaker MD INDICATIONS: The patient presents for evaluation of colorectal cancer screening. Full consent has been obtained from her for this, including risks of bleeding and perforation. PREOPERATIVE DIAGNOSIS: Colorectal cancer screening. POSTOPERATIVE DIAGNOSIS: PROCEDURE PERFORMED: Colonoscopy to the cecum and terminal ileum with hot snare polypectomy x2 with placement of 2 Resolution clips on the polypectomy site at 40 cm. ESTIMATED BLOOD LOSS: COMPLICATIONS: ANESTHESIA: Monitored anesthesia care. ASSISTANTS: SPECIMENS: POSTOPERATIVE DIAGNOSES: Colorectal cancer screening, colon polyps, diverticulosis, and internal hemorrhoids. DESCRIPTION OF PROCEDURE: The patient was placed in the left lateral decubitus position. The digital rectal exam revealed no abnormalities. The Drivy video pediatric colonoscope was then entered into the rectum and advanced easily to the cecum. Once in the cecum, I did identify normal-appearing cecal pouch with appendiceal orifice and a normal-appearing ileocecal valve. The terminal ileum was cannulated and appeared normal. The scope was withdrawn back in the colon. The entire cecum and ileocecal valve appeared normal. The scope was slowly withdrawn assessing all mucosal surfaces carefully. Preparation was excellent. At 60 cm, was an approximately 12 mm flat, but raised polyp, which was removed by hot snare polypectomy and recovered by suction. The polypectomy site appeared clean, without any sign of residual polyp nor bleeding. At 40 cm, was an approximately 10 to 12 mm polyp on a stalk, which was removed with hot snare polypectomy at the base of the stalk. The polyp was recovered by suction. The polypectomy site had some oozing on the edges and these areas were cauterized with the tip of the snare and then 2 Resolution clips were applied with good deployment and good hemostasis. I did not visualize any other polyps, colitis, nor angiodysplasias. There was a mild amount of sigmoid diverticulosis. In the rectum, scope was retroflexed, visualizing internal hemorrhoids, but no other pathology. The rectal mucosa appeared normal. The scope was straightened and withdrawn from the patient. She tolerated the procedure well and was returned to the recovery area in stable condition. IMPRESSION: 1. Colon polyps. 2. Diverticulosis. 3. Internal hemorrhoids. PLAN: The results of the pathology will be checked. I would recommend a repeat colonoscopy in 3 years for further surveillance. She was advised not to use any aspirin or NSAIDs for 2 weeks. She will, otherwise, see me on a p.r.n. basis. MD IMELDA Ramírez/TYRESE / [id number]
[2024-11-22 14:41] VITALS: BP 126/72; PULSE 57; RESP 20; TEMP 36.1; O2SAT 99
== END 2024-11-22 15:00 | disposition home or self-care (01) ==
PROVIDERS: Visit Provider Internal Medicine
PROC: 0DJD8ZZ Inspection of Lower Intestinal Tract, Via Natural or Artificial Opening Endoscopic (ICD-10-PCS; CPT 45378; principal; 2024-11-22 12:40)
DX: Z12.11 Encounter for screening for malignant neoplasm of colon (principal); D12.4 Benign neoplasm of descending colon; D12.5 Benign neoplasm of sigmoid colon; Z87.891 Personal history of nicotine dependence; K57.30 Diverticulosis of large intestine without perforation or abscess without bleeding; K64.8 Other hemorrhoids; I10 Essential (primary) hypertension; E78.5 Hyperlipidemia, unspecified; Z79.899 Other long term (current) drug therapy
CPT/HCPCS: 45385; 88305; J2003; J2704